=== PATIENT | male | born 1945 | race Caucasian/White ===

== ENCOUNTER 2018-06-19 10:37 | Emergency (ER) | payer MEDICARE ==
--- NOTE | 2018-06-19 11:03 | RAD ---
SINGLE VIEW OF THE CHEST: Comparison: 09-21-12 History: Cough, shortness of breath for two weeks. FINDINGS: Single view of the chest shows a normal sized cardiomediastinal silhouette. There is no evidence of c onsolidation, mass, or pleural effusion. The bones are unremarkable. IMPRESSION: No evidence of acute cardiopulmonary disease. POS: [facility]
[2018-06-19 11:11] LABS: Hemoglobin 14.1 g/dL (14.0-18.0); Mean Corpuscular HGB CONC 32.9 g/dL (32.0-36.0); Mean Corpuscular Hemoglobin 30.7 pg (27.0-31.0); Mean Corpuscular Volume 93.1 fL (78.0-98.0); Mean Platelet Volume 7.2 fL (7.4-10.4); Platelet Count 138 thou/uL (130-400); RBC Distribution Width 12.5 % (11.5-14.5); Red Blood Cell (RBC) Count 4.61 mill/uL (4.70-6.10); White Blood Cell (WBC) Count 17.2 thou/uL (4.8-10.8)
[2018-06-19 11:25] LABS: Band 1 % (5-11); Lymphocytes 70 % (21-51); MDiff Complete? YES; Monocytes 4 % (0-10); Neutrophil 20 % (42-75); PLT Morphology Comment Appears Adequate; Reactive Lymphocytes 5 % (0-10)
[2018-06-19] MEDS ORDERED: methylPREDNISolone Sod Succ/PF 125 MG/2 ML VIAL ONE (11:32)
[2018-06-19 11:48] LABS: CKMB 1.7 ng/mL (0-6.6); Troponin I Less than 0.010 ng/mL (< 0.028)
[2018-06-19 11:49] LABS: ALT (SGPT) 13 U/L (8-55); AST (SGOT) 24 U/L (5-34); Albumin 4.3 g/dL (3.4-4.8); Alkaline Phosphatase 124 U/L (40-150); Anion Gap 15 mmol/L (10-20); BUN (Urea Nitrogen) 23 mg/dL (8.4-25.7); Bilirubin, Total 0.4 mg/dL (0.2-1.2); Calc. Creatinine Clearance 0 mL/min (70-130); Calcium 9.4 mg/dL (7.8-10.44); Carbon Dioxide 21 mmol/L (23-31); Chloride 102 mmol/L (98-107); Estimated GFR-MDRD 66; Globulin 2.4 g/dL (2.4-3.5); Glucose 104 mg/dL (83-110); Potassium 4.7 mmol/L (3.5-5.1); Protein, Total 6.7 g/dL (5.8-8.1); Sodium 133 mmol/L (136-145)
--- NOTE | 2018-06-19 13:06 | CT ---
CT ANGIOGRAM THORAX WITH IV CONTRAST AND 3D RECONSTRUCTIONS: Date: 06-19-18 History: Dyspnea. Cough. Shortness of breath. Comparison: 09-21-12 FINDINGS: No filling defects are seen in the pulmonary arteries to suggest a pulmonary embolus. Vascular calcif ications are seen in the coronary arteries as well as involving the thoracic aorta. There is no evide nce of an aortic dissection or aneurysmal dilatation of the thoracic aorta. The ascending thoracic ao rta measures 4 cm in diameter. There is irregular atherosclerotic plaque and calcifications involving the proximal abdominal aorta. There also appears to be moderate to severe narrowing at the origin of the celiac artery with mild to moderate narrowing at the origin of the superior mesenteric artery. There is a exophytic fluid attenuation cystic lesion inferior pole right kidney measures 3.9 cm, comp atible with a cyst. The spleen is enlarged in AP dimension measuring 15.4 cm. Degenerative changes are noted in the spine. There is what appears to be biapical pleural and parenchymal scarring. Again noted is elevation of th e right hemidiaphragm with atelectasis at the right lung base. No pulmonary nodule, mass, or pleural effusion is identified. Soft tissue density is seen in the subcarinal location just anterior to the esophagus measuring 1.5 c m likely related to mildly enlarged lymph node. There is also mildly enlarged precarinal lymph node w hich measures approximately 1.5 cm in short axis dimension. There is also mild increase in soft tissu e density in the hilar regions bilaterally. Exact etiology for lymphadenopathy is uncertain but may b e reactive in origin. IMPRESSION: 1. No CT evidence of a pulmonary embolus. 2. Atherosclerotic vascular calcifications and plaque in the thoracic and visualized upper abdominal aorta. No aortic dissection or aneurysm is seen. 3. Narrowing of the celiac and superior mesenteric arteries at the origin proximally. 4. Splenomegaly. 5. Right renal cyst. 6. Mild mediastinal and hilar lymphadenopathy, the exact etiology is uncertain but may be reactive in origin. 7. Degenerative changes in the spine with post-surgical changes of the visualized lower lumbar spine. POS: [facility]
[2018-06-19] MEDS ORDERED: Iopamidol 370 76% 100 ML VIAL ONE (15:53)
== END 2018-06-19 14:38 | disposition home or self-care (01) ==
LOC: ERS 10:37
DX: J44.1 Chronic obstructive pulmonary disease with (acute) exacerbation (principal); R59.0 Localized enlarged lymph nodes; I95.9 Hypotension, unspecified; I71.4 Abdominal aortic aneurysm, without rupture; E78.5 Hyperlipidemia, unspecified; Z79.899 Other long term (current) drug therapy
CPT/HCPCS: 71045; 71275; 80053; 82553; 84484; 85025; 93005; 94640; 96374; J2930; J7620

== ENCOUNTER 2018-06-22 08:15 | Inpatient (IN) | payer MEDICARE ==
[2018-06-22 09:00] LABS: Hemoglobin 15.1 g/dL (14.0-18.0); Mean Corpuscular HGB CONC 32.8 g/dL (32.0-36.0); Mean Corpuscular Hemoglobin 30.8 pg (27.0-31.0); Mean Platelet Volume 7.5 fL (7.4-10.4); Platelet Count 198 thou/uL (130-400); RBC Distribution Width 12.8 % (11.5-14.5)
[2018-06-22 09:07] LABS: Anion Gap 14 mmol/L (10-20); BUN (Urea Nitrogen) 22 mg/dL (8.4-25.7); Calc. Creatinine Clearance 0 mL/min (70-130); Calcium 9.5 mg/dL (7.8-10.44); Carbon Dioxide 24 mmol/L (23-31); Chloride 101 mmol/L (98-107); Estimated GFR-MDRD 67; Glucose 78 mg/dL (83-110); Potassium 4.7 mmol/L (3.5-5.1); Sodium 134 mmol/L (136-145)
[2018-06-22 09:14] LABS: CKMB 2.3 ng/mL (0-6.6); Troponin I Less than 0.010 ng/mL (< 0.028)
[2018-06-22 09:17] LABS: Band 2 % (5-11); Lymphocytes 71 % (21-51); MDiff Complete? YES; Monocytes 5 % (0-10); Neutrophil 17 % (42-75); PLT Morphology Comment Appears Adequate; RBC Morphology Normal; Reactive Lymphocytes 5 % (0-10)
--- NOTE | 2018-06-22 09:22 | RAD ---
FRONTAL VIEW CHEST: Comparison: 06-19-18 Indication: Cough. FINDINGS: There is elevation of the right hemidiaphragm. No lobar consolidation, effusion, or pneumot horax. Cardiac silhouette is within normal limits of size for portable technique. IMPRESSION: No focal consolidation. POS: [facility]
[2018-06-22] MEDS ORDERED: methylPREDNISolone Sod Succ/PF 125 MG/2 ML VIAL ONE (09:27)
[2018-06-22] MEDS ORDERED: Magnesium 2 GM/50 ML BAG (IN WATER) ONE (09:27)
[2018-06-22] MEDS ORDERED: Magnesium 2 GM/50 ML 2 GM in Premix Bag 1 BAG IVPB SCH (09:30)
[2018-06-22] MEDS ORDERED: Cefepime 2 GM in Sodium Chloride 0.9% 100 ML IVPB SCH (11:30)
[2018-06-22] MEDS ORDERED: Ondansetron ODT 4 MG TAB PO PRN (12:11)
[2018-06-22] MEDS ORDERED: Eucerin (Mineral Oil/Petrolatum,White) 30 gm Jar TOP PRN (12:11)
[2018-06-22] MEDS ORDERED: Ondansetron PF 4 MG/2 ML Vial IVP PRN (12:11)
[2018-06-22] MEDS ORDERED: Calcium Carbonate 500 MG ChewTAB PO PRN (12:11)
[2018-06-22] MEDS ORDERED: Loperamide HCl 2 MG CAP PO PRN (12:11)
[2018-06-22] MEDS ORDERED: Cepastat Lozenges 1 LOZ PO PRN (12:11)
[2018-06-22] MEDS ORDERED: Bisacodyl 5 MG TAB PO PRN (12:11)
[2018-06-22] MEDS ORDERED: Bisacodyl 10 MG SUPP PR PRN (12:11)
[2018-06-22] MEDS ORDERED: Sodium Chloride 0.65% Nasal 44 ML BOT EA NARE PRN (12:11)
[2018-06-22] MEDS ORDERED: hydrALAZINE 20 MG/ML VIAL SLOW IVP PRN (12:11)
[2018-06-22] MEDS ORDERED: Artificial Tear Sol 15 ML BOT EA EYE PRN (12:11)
[2018-06-22] MEDS ORDERED: Senokot S 8.6-50 MG TAB PO PRN (12:11)
[2018-06-22] MEDS ORDERED: Zolpidem Tartrate 5 MG TAB PO PRN (12:11)
[2018-06-22] MEDS ORDERED: Loratadine 10 MG TAB PO PRN (12:11)
[2018-06-22 12:24] LABS: Troponin I Less than 0.010 ng/mL (< 0.028)
--- NOTE | 2018-06-22 12:51 | HP ---
PRIMARY CARE PHYSICIAN: City call admission. REASON FOR ADMISSION: Acute bronchitis, chronic obstructive pulmonary disease exacerbation, failure of outpatient therapy. HISTORY OF PRESENT ILLNESS: This is a 72-year-old male, who has underlying history of chronic lympho cytic leukemia, who is sick for almost a week. The patient's symptoms started with cough productive of yellowish white sputum, which was gradually increasing. He was also having increasing shortness o f breath. He was having upper respiratory symptoms with a runny nose and mild sore throat. The cecilia ent was trying [id number] medication without any significant improvement, and that is why he re quired emergency room visit on 06/20/2018. At that time, patient was evaluated with a CT angiography , which was negative for pulmonary embolism. The patient was given Solu-Medrol 125 mg and DuoNeb the rapy and patient was discharged to home from the ER with p.o. Levaquin and p.o. prednisone and inhale r was prescribed. Patient was using that medication for the last couple of days, but even with those medications, the patient was feeling worse and he was having pleuritic chest discomfort. He was not able to take deep breath, because of coughing and he was feeling more shortness of breath. His exer cise capacity also reduced and he has still ongoing cough and rhinorrhea. He was not having any feve r, but he was feeling subjective feverish. He denies any UTI symptoms. He denies any constipation o r diarrhea. He denies any sick exposure. He denies any recent travel. Patient reports that he is u p-to-date in flu shot this year and he had, several years ago, pneumonia vaccine. EMERGENCY ROOM COURSE: Reviewed. Today, the patient has received cefepime 2 gram, Levaquin 750 mg, magnesium sulfate 2 grams, Solu-Medrol 125 mg, and DuoNeb therapy. ALLERGIES: MORPHINE and MORPHINE PRODUCT. CURRENT HOME MEDICATIONS: Amitiza 8 mcg twice daily; Celebrex 100 mg twice daily; Levaquin 750 mg p. o. daily, which he took 2 pills so far; ProAir inhaler q.4 hourly p.r.n.; prednisone 40 mg p.o. daily , which he takes for last 2 days. REVIEW OF SYSTEMS: The following complete review of systems was negative, unless otherwise mentioned in the HPI or below: Constitutional: Weight loss or gain, ability to conduct usual activities. Sk in: Rash, itching. Eyes: Double vision, pain. ENT/Mouth: Nose bleeding, neck stiffness, pain, te nderness. Cardiovascular: Palpitations, dyspnea on exertion, orthopnea. Respiratory: Shortness of breath, wheezing, cough, hemoptysis, fever, or night sweats. Gastrointestinal: Poor appetite, abdo shankar pain, heartburn, nausea, vomiting, constipation, or diarrhea. Genitourinary: Urgency, frequen cy, dysuria, nocturia. Musculoskeletal: Pain, swelling. Neurologic/Psychiatric: Anxiety, depressi on. Allergy/Immunologic: Skin rash, bleeding tendency. Please see my HPI for pertinent positive an d negative. All other review of systems reviewed and negative except as mentioned in the HPI. PAST MEDICAL HISTORY: Chronic lymphocytic leukemia under remission, followed by Dr. Holland as an ou tpatient basis, diagnosed almost 8 years ago. Tobacco abuse disorder, history of abdominal aortic an eurysm, dyslipidemia. PAST SURGICAL HISTORY: Back surgery x5 and carotid surgery. PAST PSYCHIATRIC HISTORY: Reviewed and negative. SOCIAL HISTORY: Patient is . He smokes about 5 cigarettes on a daily basis. He is trying to cut down smoking. He denies any alcohol abuse. He denies any other illicit drug abuse. He lives w ith his . FAMILY HISTORY: No strong family history of premature coronary artery disease, stroke, or cancer. PHYSICAL EXAMINATION: VITAL SIGNS: On arrival, blood pressure 124/84, pulse 119, respiratory rate 28, temperature 97.8, sa turation 97% on room air, weight 84.8 kilograms. GENERAL: The patient is currently in mild respiratory distress. HEENT: Head: Normocephalic and atraumatic. Eyes: Pupils round and reactive to light. Extraocular muscle intact. ENT: Oropharynx within normal limits. Moist mucous membranes. No pharyngeal eryth reginald, no exudate. NECK: Supple, no JVD, no thyromegaly, no carotid bruit. LUNGS: Rales noted at the bases, more on the left side. Patient is tachypneic and wheezing present bilaterally. CARDIAC: S1 and S2 regular, tachycardia, no murmur, no gallop, no rub. ABDOMEN: Soft, bowel sounds present, nontender, nondistended. No organomegaly, no mass, no suprapub ic tenderness. BACK EXAMINATION: Unremarkable, no CVA tenderness. EXTREMITIES: Upper extremities, passive movement of all joints are normal. Lower extremities, no ed reginald. Good distal pulsation. SKIN: No skin rash. HEMATOLOGICAL SYSTEM: No lymphadenopathy. PSYCHIATRIC: Normal affect. NEUROLOGIC: Nonfocal examination. SIGNIFICANT LABORATORY DATA: EKG showing sinus tachycardia, first-degree AV block. Chest x-ray, based on my review, no focal consolidation. CT angiography done recently showed no evid ence of pulmonary embolism, narrowing of the celiac and superior mesenteric artery at the origin, spl enomegaly, mild mediastinal and hilar lymphadenopathy, degenerative spine disease, vascular calcifica tion in the aorta. CBC: WBC 36.0, hemoglobin 15.1, platelets 198 with bandemia. BMP: Sodium 134, potassium 4.7, chloride 101, carbon dioxide 24, BUN 22, creatinine 1.09, glucose 78, calcium 9.5, lac tic acid 2.4, CK-MB of 2.3, troponin I less than 0.010. ASSESSMENT AND PLAN: 1. Acute chronic obstructive pulmonary disease exacerbation, likely precipitated by underlying acute bronchitis/atypical pneumonia. 2. Acute bronchitis versus atypical pneumonia, failure of outpatient therapy. 3. Lactic acidosis, due to sepsis, secondary to problem #1 and #2. 4. Sepsis due to problem #1 and #2. 5. Chronic lymphocytic leukemia under remission. 6. Tobacco abuse disorder. 7. Osteoarthritis and chronic constipation. PLAN: 1. Full admission to telemetry floor, given sepsis criteria. 2. Cefepime 2 gram IV twice daily and Levaquin 750 mg IV daily. 3. Solu-Medrol 40 mg IV q.6 hourly. 4. DuoNeb therapy q.6 hourly and q.2 hourly p.r.n. 5. Mucinex 600 mg twice daily. 6. Oxygen to keep saturation above 92% and wean off as needed. 7. Follow up on culture result. 8. Check a viral panel to rule out influenza and other virus etiology. 9. We will resume selected home medication while in hospital. 10. IV fluid with NS 100 mL per hour. 11. Symptomatic treatment for cough and dyspnea. 12. Deep venous thrombosis prophylaxis with Lovenox 40 mg subcutaneous daily. 13. Gastrointestinal prophylaxis with Pepcid 20 mg p.o. b.i.d. 14. Code status: The patient is FULL CODE. The patient's is surrogate decision maker. Disposition plan based on clinical course. We are expecting patient's stay in hospital more than 2 m idnights. Plan of care discussed with the patient and his at bedside.
[2018-06-22 12:57] VITALS: BMI 22.1
[2018-06-22] MEDS: Cefepime 2 GM in Sodium Chloride 0.9% 100 ML IVPB SCH (13:37)
[2018-06-22] MEDS: Sodium Chloride 0.9% 1,000 ML IV SCH ×2 (13:37→20:07)
[2018-06-22] MEDS: Acetaminophen 325 MG TAB PO PRN ×2 (13:46→20:08)
[2018-06-22] MEDS: Diabetic Tussin 200 MG/10 ML UDCUP PO PRN ×2 (13:46→17:12)
[2018-06-22 15:40] LABS: Troponin I Less than 0.010 ng/mL (< 0.028)
[2018-06-22] MEDS ORDERED: CeleCOXIB 100 MG CAP PO SCH (16:15)
[2018-06-22] MEDS: Lubiprostone 24 MCG CAP PO SCH (16:30)
[2018-06-22 17:44] LABS: Bilirubin Negative (Negative); Blood, Urine Negative (Negative); Clarity CLEAR (Clear); Glucose, Urine (Dipstick) Negative (Negative); Leukocyte Negative (Negative); Nitrite Negative (Negative); Protein, Urine (Dipstick) Negative (Neg-Trace); Specific Gravity, Urine 1.015 (1.002-1.036); Urobilinogen 0.2 mg/dL (0.2-1.0)
[2018-06-22 17:46] LABS: Bacteria/HPF None Seen HPF (None Seen); Hyaline Casts/LPF 0-3 HYALINE CAST LPF (0-3 Hyaline); RBC/HPF 0-3 HPF (0-3); Squamous Epithelial None Seen HPF (0-3); WBC/HPF None Seen HPF (0-3)
[2018-06-22] MEDS: CeleCOXIB 100 MG CAP PO SCH (20:07)
[2018-06-22] MEDS: Famotidine 20 MG TAB PO SCH (20:08)
[2018-06-22] MEDS: guaiFENesin ER 600 MG TAB PO SCH (20:08)
[2018-06-23] MEDS: Cefepime 2 GM in Sodium Chloride 0.9% 100 ML IVPB SCH ×2 (00:44→14:57)
[2018-06-23 04:57] LABS: Anion Gap 10 mmol/L (10-20); BUN (Urea Nitrogen) 23 mg/dL (8.4-25.7); Calc. Creatinine Clearance 84 mL/min (70-130); Calcium 8.6 mg/dL (7.8-10.44); Carbon Dioxide 23 mmol/L (23-31); Chloride 106 mmol/L (98-107); Estimated GFR-MDRD 81; Glucose 143 mg/dL (83-110); Potassium 4.6 mmol/L (3.5-5.1); Sodium 134 mmol/L (136-145)
[2018-06-23 05:05] LABS: Band 2 % (5-11); Hemoglobin 12.8 g/dL (14.0-18.0); Lymphocytes 34 % (21-51); MDiff Complete? YES; Mean Corpuscular Hemoglobin 31.1 pg (27.0-31.0); Mean Corpuscular Volume 94.1 fL (78.0-98.0); Mean Platelet Volume 7.2 fL (7.4-10.4); Monocytes 9 % (0-10); Neutrophil 37 % (42-75); PLT Morphology Comment Appears Decreased; Platelet Count 112 thou/uL (130-400); RBC Distribution Width 12.1 % (11.5-14.5); Reactive Lymphocytes 18 % (0-10); Red Blood Cell (RBC) Count 4.13 mill/uL (4.70-6.10); White Blood Cell (WBC) Count 12.1 thou/uL (4.8-10.8)
[2018-06-23] MEDS: Diabetic Tussin 200 MG/10 ML UDCUP PO PRN (06:02)
[2018-06-23] MEDS: Sodium Chloride 0.9% 1,000 ML IV SCH (08:09)
[2018-06-23] MEDS ORDERED: Prevnar 13-Val Conj/PF 0.5 ML SYRINGE IM ONE (09:00)
--- NOTE | 2018-06-23 09:19 | PDOC.PN ---
- Subjective Encounter Start Date: 06/23/18 Encounter Start Time: 07:10 -: old records requested/rev pt still has cough when he deep breaths, overall feels better, less dyspnea Patient seen and examined. No overnight events - Objective Resuscitation Status: Resuscitation Status FULL:Full Resuscitation MAR Reviewed: Yes Vital Signs & Weight: Vital Signs (12 hours) Temp Pulse Resp BP BP Pulse Ox 06/23/18 07:38 97.8 F 68 16 133/73 92 L 06/23/18 06:11 95 06/23/18 06:06 65 20 95 06/23/18 03:28 98.5 F 63 20 128/68 94 L 06/23/18 02:12 70 18 94 L 06/22/18 23:21 97.8 F 62 20 131/67 93 L Weight Weight 177 lb I&O: 06/22/18 06/23/18 06/24/18 06:59 06:59 06:59 Intake Total 2790 Output Total 1750 Balance 1040 Result Diagrams: 06/23/18 04:10 06/23/18 04:10 EKG Reviewed by me: Yes (nsr) Phys Exam - Physical Examination Constitutional: NAD HEENT: PERRLA, moist MMs, sclera anicteric Neck: no JVD, supple few wheeze, basilar rales Cardiovascular: RRR, no significant murmur, no rub Gastrointestinal: soft, non-tender, no distention, positive bowel sounds Musculoskeletal: no edema, pulses present Neurological: non-focal, normal sensation, moves all 4 limbs Psychiatric: normal affect, A&O x 3 Skin: no rash, normal turgor Dx/Plan (1) Acute bronchitis Code(s): J20.9 - ACUTE BRONCHITIS, UNSPECIFIED Status: Acute (2) COPD exacerbation Code(s): J44.1 - CHRONIC OBSTRUCTIVE PULMONARY DISEASE W (ACUTE) EXACERBATION Status: Acute (3) Failure of outpatient treatment Code(s): Z78.9 - OTHER SPECIFIED HEALTH STATUS Status: Acute (4) Sepsis Code(s): A41.9 - SEPSIS, UNSPECIFIED ORGANISM Status: Acute (5) Thrombocytopenia Code(s): D69.6 - THROMBOCYTOPENIA, UNSPECIFIED Status: Acute (6) Chronic lymphoblastic leukemia Code(s): C91.Z0 - OTHER LYMPHOID LEUKEMIA NOT HAVING ACHIEVED REMISSION Status : Chronic (7) Tobacco abuse Code(s): Z72.0 - TOBACCO USE Status: Chronic - Plan cont current plan of care, continue antibiotics, respiratory therapy * DC IVF * ambulate with walking program * continue IV cefepime and levaquin for now * continue IV solumderol and respiratory therapy * medication reviewed as below * symptomatic treatment. Review of Systems - Review of Systems Constitutional: negative: fever, chills, sweats, weakness, malaise, other Respiratory: Cough, Pleuritic Pain. negative: Dry, Shortness of Breath, Hemoptysis, SOB with Excertion, Sputum, Wheezing Cardiovascular: negative: chest pain, palpitations, orthopnea, paroxysmal nocturnal dyspnea, edema, light headedness, other Gastrointestinal: negative: Nausea, Vomiting, Abdominal Pain, Diarrhea, Constipation, Melena, Hematochezia, Other Genitourinary: negative: Dysuria, Frequency, Incontinence, Hematuria, Retention , Other Musculoskeletal: negative: Neck Pain, Shoulder Pain, Arm Pain, Back Pain, Hand Pain, Leg Pain, Foot Pain, Other Skin: negative: Rash, Lesions, Vladimir, Bruising, Other - Medications/Allergies Allergies/Adverse Reactions: Allergies Allergy/AdvReac Type Severity Reaction Status Date / Time morphine Allergy Verified 06/22/18 13:14 Medications: Current Medications Acetaminophen (Tylenol) 650 mg PO Q4H PRN PRN Reason: Headache/Fever/Mild Pain (1-3) Last Admin: 06/22/18 20:08 Dose: 650 mg Albuterol/Ipratropium (Duoneb) 3 ml NEB [id number] [facility] Last Admin: 06/23/18 06:06 Dose: 3 ml Albuterol/Ipratropium (Duoneb) 3 ml NEB [id number] PRN PRN Reason: SOB &/or Wheezing Artificial Tears (Tears Renewed 15ml Bottle) 2 drop EA EYE PRN PRN PRN Reason: Dry Eyes Bisacodyl (Dulcolax) 10 mg PO DAILYPRN PRN PRN Reason: Constipation Bisacodyl (Dulcolax) 10 mg MI DAILYPRN PRN PRN Reason: Constipation Calcium Carbonate (Tums) 1,000 mg PO Q4H PRN PRN Reason: Heartburn or Indigestion Celecoxib (Celebrex) 200 mg PO BID [facility] Last Admin: 11/09/18 20:07 Dose: 200 mg Enoxaparin Sodium (Lovenox) 40 mg SC 0900 [facility] Famotidine (Pepcid) 20 mg PO BID [facility] Last Admin: 06/22/18 20:08 Dose: 20 mg Guaifenesin (Mucinex) 600 mg PO Q12HR [facility] Last Admin: 06/22/18 20:08 Dose: 600 mg Guaifenesin (Robitussin Sf) 200 mg PO Q4H PRN PRN Reason: Cough Last Admin: 06/23/18 06:02 Dose: 200 mg Hydralazine HCl (Apresoline) 10 mg SLOW IVP Q4H PRN PRN Reason: SBP > 180 and HR < 70 Sodium Chloride (Normal Saline 0.9%) 1,000 mls @ 100 mls/hr IV .Q10H [facility] Last Admin: 06/23/18 08:09 Dose: 1,000 mls Cefepime HCl 2 gm/ Sodium (Chloride) 100 mls @ 200 mls/hr IVPB 0100,1300 [facility] Last Admin: 06/23/18 00:44 Dose: 100 mls Levofloxacin 750 mg/ Device 150 mls @ 100 mls/hr IVPB Q24HR@1000 [facility] Loperamide HCl (Imodium) 2 mg PO PRN PRN PRN Reason: Diarrhea/Loose Stools Loratadine (Claritin) 10 mg PO DAILYPRN PRN PRN Reason: Sinus Symptoms Lubiprostone (Amitiza) 24 mcg PO BID-[facility] Last Admin: 06/22/18 16:30 Dose: 24 mcg Methylprednisolone Sodium Succinate (Solu-Medrol) 40 mg IVP Q6HR [facility] Last Admin: 06/23/18 05:55 Dose: 40 mg Mineral Oil/White Petrolatum (Eucerin Cream) 0 gm TOP BIDPRN PRN PRN Reason: Dry Skin Ondansetron HCl (Zofran Odt) 4 mg PO Q6H PRN PRN Reason: Nausea/Vomiting Ondansetron HCl (Zofran) 4 mg IVP Q6H PRN PRN Reason: Nausea/Vomiting Senna/Docusate Sodium (Senokot S) 2 tab PO BID PRN PRN Reason: Constipation Sodium Chloride ([place] Nasal [place] 0.65%) 0 ml EA NARE QIDPRN PRN PRN Reason: Nasal Congestion Throat Lozenges (Cepastat Lozenges) 1 ludmila PO Q2H PRN PRN Reason: Sore Throat Zolpidem Tartrate (Ambien) 5 mg PO HSPRN PRN PRN Reason: Insomnia
[2018-06-23] MEDS: CeleCOXIB 100 MG CAP PO SCH ×2 (10:02→20:33)
[2018-06-23] MEDS: Enoxaparin Sodium 40 MG/0.4 ML SYRINGE SC SCH (10:02)
[2018-06-23] MEDS: guaiFENesin ER 600 MG TAB PO SCH ×2 (10:03→20:33)
[2018-06-23] MEDS: Famotidine 20 MG TAB PO SCH ×2 (10:03→20:33)
[2018-06-23] MEDS: Lubiprostone 24 MCG CAP PO SCH ×2 (10:03→18:18)
[2018-06-23] MEDS: Acetaminophen 325 MG TAB PO PRN ×2 (12:25→20:33)
[2018-06-24] MEDS: Cefepime 2 GM in Sodium Chloride 0.9% 100 ML IVPB SCH ×2 (01:15→13:25)
[2018-06-24] MEDS: Acetaminophen 325 MG TAB PO PRN ×2 (01:24→20:35)
[2018-06-24] MEDS: Diabetic Tussin 200 MG/10 ML UDCUP PO PRN (01:24)
[2018-06-24] MEDS: Lubiprostone 24 MCG CAP PO SCH ×2 (08:56→17:34)
[2018-06-24] MEDS: Famotidine 20 MG TAB PO SCH ×2 (08:57→20:35)
[2018-06-24] MEDS: CeleCOXIB 100 MG CAP PO SCH ×2 (08:57→20:34)
[2018-06-24] MEDS: guaiFENesin ER 600 MG TAB PO SCH ×2 (08:58→20:34)
[2018-06-24] MEDS: Enoxaparin Sodium 40 MG/0.4 ML SYRINGE SC SCH (08:58)
--- NOTE | 2018-06-24 10:06 | PDOC.PN ---
- Subjective Encounter Start Date: 06/24/18 Encounter Start Time: 07:10 Patient seen and examined. No new complaints. No overnight events - Objective Resuscitation Status: Resuscitation Status FULL:Full Resuscitation MAR Reviewed: Yes Vital Signs & Weight: Vital Signs (12 hours) Temp Pulse Resp BP Pulse Ox 06/24/18 08:00 99.1 F 69 16 127/69 91 L 06/24/18 06:52 79 16 96 06/24/18 04:00 99.1 F 74 18 122/74 94 L 06/24/18 00:00 97.8 F 70 18 106/68 96 06/23/18 23:11 83 16 95 Weight Admit Weight 177 lb Weight 177 lb I&O: 06/23/18 06/24/18 06/25/18 06:59 06:59 06:59 Intake Total 2790 2002 480 Output Total 1750 Balance 1040 2002 480 Result Diagrams: 06/23/18 04:10 06/23/18 04:10 EKG Reviewed by me: Yes Phys Exam - Physical Examination Constitutional: NAD HEENT: PERRLA, moist MMs, sclera anicteric Neck: no JVD, supple Respiratory: no wheezing, no rales, no rhonchi few rales at base Cardiovascular: RRR, no significant murmur, no rub Gastrointestinal: soft, non-tender, no distention, positive bowel sounds Musculoskeletal: no edema, pulses present Neurological: non-focal, normal sensation, moves all 4 limbs Lymphatic: no nodes Psychiatric: normal affect, A&O x 3 Skin: no rash, normal turgor Dx/Plan (1) Acute bronchitis Code(s): J20.9 - ACUTE BRONCHITIS, UNSPECIFIED Status: Acute (2) COPD exacerbation Code(s): J44.1 - CHRONIC OBSTRUCTIVE PULMONARY DISEASE W (ACUTE) EXACERBATION Status: Acute (3) Failure of outpatient treatment Code(s): Z78.9 - OTHER SPECIFIED HEALTH STATUS Status: Acute (4) Sepsis Code(s): A41.9 - SEPSIS, UNSPECIFIED ORGANISM Status: Acute (5) Thrombocytopenia Code(s): D69.6 - THROMBOCYTOPENIA, UNSPECIFIED Status: Acute (6) Chronic lymphoblastic leukemia Code(s): C91.Z0 - OTHER LYMPHOID LEUKEMIA NOT HAVING ACHIEVED REMISSION Status : Chronic (7) Tobacco abuse Code(s): Z72.0 - TOBACCO USE Status: Chronic - Plan cont current plan of care, continue antibiotics, respiratory therapy * reduce solumedrol to q 8 hourly * continue cefepime and levaquin * medication reviewed as below * symptomatic treatment * ambulate as tolerated. Review of Systems - Review of Systems Constitutional: negative: fever, chills, sweats, weakness, malaise, other ENT: negative: Ear Pain, Ear Discharge, Nose Pain, Nose Discharge, Nose Congestion, Mouth Pain, Mouth Swelling, Throat Pain, Throat Swelling, Other Respiratory: Cough, Shortness of Breath, Pleuritic Pain, Sputum. negative: Dry , Hemoptysis, SOB with Excertion, Wheezing Cardiovascular: negative: chest pain, palpitations, orthopnea, paroxysmal nocturnal dyspnea, edema, light headedness, other Gastrointestinal: negative: Nausea, Vomiting, Abdominal Pain, Diarrhea, Constipation, Melena, Hematochezia, Other Genitourinary: negative: Dysuria, Frequency, Incontinence, Hematuria, Retention , Other Musculoskeletal: negative: Neck Pain, Shoulder Pain, Arm Pain, Back Pain, Hand Pain, Leg Pain, Foot Pain, Other Skin: negative: Rash, Lesions, Vladimir, Bruising, Other - Medications/Allergies Allergies/Adverse Reactions: Allergies Allergy/AdvReac Type Severity Reaction Status Date / Time morphine Allergy Verified 06/22/18 13:14 Medications: Current Medications Acetaminophen (Tylenol) 650 mg PO Q4H PRN PRN Reason: Headache/Fever/Mild Pain (1-3) Last Admin: 06/24/18 01:24 Dose: 650 mg Albuterol/Ipratropium (Duoneb) 3 ml NEB [id number] [facility] Last Admin: 06/24/18 06:52 Dose: 3 ml Albuterol/Ipratropium (Duoneb) 3 ml NEB [id number] PRN PRN Reason: SOB &/or Wheezing Artificial Tears (Tears Renewed 15ml Bottle) 2 drop EA EYE PRN PRN PRN Reason: Dry Eyes Bisacodyl (Dulcolax) 10 mg PO DAILYPRN PRN PRN Reason: Constipation Bisacodyl (Dulcolax) 10 mg MI DAILYPRN PRN PRN Reason: Constipation Calcium Carbonate (Tums) 1,000 mg PO Q4H PRN PRN Reason: Heartburn or Indigestion Celecoxib (Celebrex) 200 mg PO BID [facility] Last Admin: 06/24/18 08:57 Dose: 200 mg Enoxaparin Sodium (Lovenox) 40 mg SC 0900 [facility] Last Admin: 06/24/18 08:58 Dose: 40 mg Famotidine (Pepcid) 20 mg PO BID [facility] Last Admin: 06/24/18 08:57 Dose: 20 mg Guaifenesin (Mucinex) 600 mg PO Q12HR [facility] Last Admin: 06/24/18 08:58 Dose: 600 mg Guaifenesin (Robitussin Sf) 200 mg PO Q4H PRN PRN Reason: Cough Last Admin: 06/24/18 01:24 Dose: 200 mg Hydralazine HCl (Apresoline) 10 mg SLOW IVP Q4H PRN PRN Reason: SBP > 180 and HR < 70 Cefepime HCl 2 gm/ Sodium (Chloride) 100 mls @ 200 mls/hr IVPB 0100,1300 [facility] Last Admin: 06/24/18 01:15 Dose: 100 mls Levofloxacin 750 mg/ Device 150 mls @ 100 mls/hr IVPB Q24HR@1000 [facility] Last Admin: 06/24/18 09:01 Dose: 150 mls Loperamide HCl (Imodium) 2 mg PO PRN PRN PRN Reason: Diarrhea/Loose Stools Loratadine (Claritin) 10 mg PO DAILYPRN PRN PRN Reason: Sinus Symptoms Lubiprostone (Amitiza) 24 mcg PO BID-[facility] Last Admin: 06/24/18 08:56 Dose: 24 mcg Methylprednisolone Sodium Succinate (Solu-Medrol) 40 mg IVP Q6HR [facility] Last Admin: 06/24/18 05:59 Dose: 40 mg Mineral Oil/White Petrolatum (Eucerin Cream) 0 gm TOP BIDPRN PRN PRN Reason: Dry Skin Ondansetron HCl (Zofran Odt) 4 mg PO Q6H PRN PRN Reason: Nausea/Vomiting Ondansetron HCl (Zofran) 4 mg IVP Q6H PRN PRN Reason: Nausea/Vomiting Senna/Docusate Sodium (Senokot S) 2 tab PO BID PRN PRN Reason: Constipation Sodium Chloride ([place] Nasal [place] 0.65%) 0 ml EA NARE QIDPRN PRN PRN Reason: Nasal Congestion Throat Lozenges (Cepastat Lozenges) 1 ludmila PO Q2H PRN PRN Reason: Sore Throat Zolpidem Tartrate (Ambien) 5 mg PO HSPRN PRN PRN Reason: Insomnia
[2018-06-25] MEDS: Cefepime 2 GM in Sodium Chloride 0.9% 100 ML IVPB SCH (01:45)
[2018-06-25] MEDS: Diabetic Tussin 200 MG/10 ML UDCUP PO PRN (02:43)
[2018-06-25 07:48] VITALS: BP 126/70; TEMP 97.6
[2018-06-25] MEDS: Famotidine 20 MG TAB PO SCH (08:29)
[2018-06-25] MEDS: Lubiprostone 24 MCG CAP PO SCH (08:29)
[2018-06-25] MEDS: Enoxaparin Sodium 40 MG/0.4 ML SYRINGE SC SCH (08:30)
[2018-06-25] MEDS: CeleCOXIB 100 MG CAP PO SCH (08:30)
[2018-06-25] MEDS: guaiFENesin ER 600 MG TAB PO SCH (08:30)
--- NOTE | 2018-06-25 09:36 | PDOC.PN ---
- Subjective Encounter Start Date: 06/25/18 Encounter Start Time: 07:10 Patient seen and examined. No new complaints. No overnight events - Objective Resuscitation Status: Resuscitation Status FULL:Full Resuscitation MAR Reviewed: Yes Vital Signs & Weight: Vital Signs (12 hours) Temp Pulse Resp BP BP BP BP 06/25/18 07:45 97.6 F 61 16 126/70 06/25/18 07:01 68 16 06/25/18 04:02 98.0 F 95 18 125/79 122/83 120/69 06/25/18 00:14 72 18 06/24/18 23:31 98.8 F 65 14 121/75 Pulse Ox 06/25/18 07:45 97 06/25/18 07:01 93 L 06/25/18 04:02 95 06/25/18 00:14 93 L 06/24/18 23:31 94 L Weight Admit Weight 177 lb Weight 177 lb I&O: 06/24/18 06/25/18 06/26/18 06:59 06:59 06:59 Intake Total 2002 2340 480 Balance 2002 2340 480 Result Diagrams: 06/23/18 04:10 06/23/18 04:10 EKG Reviewed by me: Yes Phys Exam - Physical Examination Constitutional: NAD HEENT: PERRLA, moist MMs, sclera anicteric Neck: no JVD, supple Respiratory: no wheezing, no rales, no rhonchi Cardiovascular: RRR, no significant murmur, no rub Gastrointestinal: soft, non-tender, no distention, positive bowel sounds Musculoskeletal: no edema, pulses present Neurological: non-focal, normal sensation, moves all 4 limbs Psychiatric: normal affect, A&O x 3 Skin: no rash, normal turgor Dx/Plan (1) Acute bronchitis Code(s): J20.9 - ACUTE BRONCHITIS, UNSPECIFIED Status: Acute (2) COPD exacerbation Code(s): J44.1 - CHRONIC OBSTRUCTIVE PULMONARY DISEASE W (ACUTE) EXACERBATION Status: Acute (3) Failure of outpatient treatment Code(s): Z78.9 - OTHER SPECIFIED HEALTH STATUS Status: Acute (4) Sepsis Code(s): A41.9 - SEPSIS, UNSPECIFIED ORGANISM Status: Acute (5) Thrombocytopenia Code(s): D69.6 - THROMBOCYTOPENIA, UNSPECIFIED Status: Acute (6) Chronic lymphoblastic leukemia Code(s): C91.Z0 - OTHER LYMPHOID LEUKEMIA NOT HAVING ACHIEVED REMISSION Status : Chronic (7) Tobacco abuse Code(s): Z72.0 - TOBACCO USE Status: Chronic - Plan cont current plan of care, continue antibiotics, respiratory therapy * medication reviewed as below * symptomatic treatment * see my discharge carsony. Review of Systems - Review of Systems ENT: negative: Ear Pain, Ear Discharge, Nose Pain, Nose Discharge, Nose Congestion, Mouth Pain, Mouth Swelling, Throat Pain, Throat Swelling, Other Respiratory: Cough. negative: Dry, Shortness of Breath, Hemoptysis, SOB with Excertion, Pleuritic Pain, Sputum, Wheezing Cardiovascular: negative: chest pain, palpitations, orthopnea, paroxysmal nocturnal dyspnea, edema, light headedness, other Gastrointestinal: negative: Nausea, Vomiting, Abdominal Pain, Diarrhea, Constipation, Melena, Hematochezia, Other Genitourinary: negative: Dysuria, Frequency, Incontinence, Hematuria, Retention , Other Musculoskeletal: negative: Neck Pain, Shoulder Pain, Arm Pain, Back Pain, Hand Pain, Leg Pain, Foot Pain, Other Skin: negative: Rash, Lesions, Vladimir, Bruising, Other - Medications/Allergies Allergies/Adverse Reactions: Allergies Allergy/AdvReac Type Severity Reaction Status Date / Time morphine Allergy Verified 06/22/18 13:14 Medications: Current Medications Acetaminophen (Tylenol) 650 mg PO Q4H PRN PRN Reason: Headache/Fever/Mild Pain (1-3) Last Admin: 06/24/18 20:35 Dose: 650 mg Albuterol/Ipratropium (Duoneb) 3 ml NEB [id number] [facility] Last Admin: 06/25/18 07:01 Dose: 3 ml Albuterol/Ipratropium (Duoneb) 3 ml NEB [id number] PRN PRN Reason: SOB &/or Wheezing Artificial Tears (Tears Renewed 15ml Bottle) 2 drop EA EYE PRN PRN PRN Reason: Dry Eyes Bisacodyl (Dulcolax) 10 mg PO DAILYPRN PRN PRN Reason: Constipation Bisacodyl (Dulcolax) 10 mg NE DAILYPRN PRN PRN Reason: Constipation Calcium Carbonate (Tums) 1,000 mg PO Q4H PRN PRN Reason: Heartburn or Indigestion Celecoxib (Celebrex) 200 mg PO BID [facility] Last Admin: 06/25/18 08:30 Dose: 200 mg Enoxaparin Sodium (Lovenox) 40 mg SC 0900 [facility] Last Admin: 06/25/18 08:30 Dose: 40 mg Famotidine (Pepcid) 20 mg PO BID [facility] Last Admin: 06/25/18 08:29 Dose: 20 mg Guaifenesin (Mucinex) 600 mg PO Q12HR [facility] Last Admin: 06/25/18 08:30 Dose: 600 mg Guaifenesin (Robitussin Sf) 200 mg PO Q4H PRN PRN Reason: Cough Last Admin: 06/25/18 02:43 Dose: 200 mg Hydralazine HCl (Apresoline) 10 mg SLOW IVP Q4H PRN PRN Reason: SBP > 180 and HR < 70 Cefepime HCl 2 gm/ Sodium (Chloride) 100 mls @ 200 mls/hr IVPB 0100,1300 [facility] Last Admin: 06/25/18 01:45 Dose: 100 mls Levofloxacin 750 mg/ Device 150 mls @ 100 mls/hr IVPB Q24HR@1000 [facility] Last Admin: 06/24/18 09:01 Dose: 150 mls Loperamide HCl (Imodium) 2 mg PO PRN PRN PRN Reason: Diarrhea/Loose Stools Loratadine (Claritin) 10 mg PO DAILYPRN PRN PRN Reason: Sinus Symptoms Lubiprostone (Amitiza) 24 mcg PO BID[facility] Last Admin: 06/25/18 08:29 Dose: 24 mcg Methylprednisolone Sodium Succinate (Solu-Medrol) 40 mg IVP Q8HR [facility] Last Admin: 06/25/18 05:53 Dose: 40 mg Mineral Oil/White Petrolatum (Eucerin Cream) 0 gm TOP BIDPRN PRN PRN Reason: Dry Skin Ondansetron HCl (Zofran Odt) 4 mg PO Q6H PRN PRN Reason: Nausea/Vomiting Ondansetron HCl (Zofran) 4 mg IVP Q6H PRN PRN Reason: Nausea/Vomiting Senna/Docusate Sodium (Senokot S) 2 tab PO BID PRN PRN Reason: Constipation Sodium Chloride ([place] Nasal Michie 0.65%) 0 ml EA NARE QIDPRN PRN PRN Reason: Nasal Congestion Throat Lozenges (Cepastat Lozenges) 1 ludmila PO Q2H PRN PRN Reason: Sore Throat Zolpidem Tartrate (Ambien) 5 mg PO HSPRN PRN PRN Reason: Insomnia
--- NOTE | 2018-06-25 11:08 | DIS ---
DATE OF ADMISSION: 06/22/2018 DATE OF DISCHARGE: 06/25/2018 DISCHARGE DISPOSITION: Home. PRIMARY DISCHARGE DIAGNOSES: 1. Sepsis, resolved. 2. Acute bronchitis/atypical pneumonia due to Streptococcus pneumoniae. 3. Failure of outpatient therapy. 4. Thrombocytopenia due to sepsis. 5. Chronic obstructive pulmonary disease exacerbation. SECONDARY DISCHARGE DIAGNOSES: Chronic lymphocytic leukemia, chronic obstructive pulmonary disease, tobacco abuse disorder. PRIMARY PROCEDURE AND OPERATION: None. RADIOLOGICAL INVESTIGATION: Chest x-ray reported normal. SIGNIFICANT LABORATORY DATA: WBC 12.1, hemoglobin 12.8, platelet 112. Sodium 134, potassium 4.6, BU N 23, creatinine 0.92, calcium 8.6. Cardiac enzymes negative x3. Lactic acid 1.0. Urinalysis papo l. Blood culture negative. DISCHARGE MEDICATIONS: Celecoxib 200 mg p.o. b.i.d. p.r.n., Amitiza 24 mcg p.o. b.i.d. p.r.n., ProAi r HFA 2 puffs q.6 hourly p.r.n., Omnicef 300 mg p.o. twice daily for 7 days, Mucinex 600 mg twice jourdan ly, Pepcid 20 mg p.o. b.i.d., Dulera two puff inhalation b.i.d., prednisone 20 mg p.o. b.i.d. for 7 d ays. CONTRAINDICATIONS: None. CODE STATUS: FULL CODE. INPATIENT CONSULTANTS: None. ALLERGIES: MORPHINE. TEST RESULTS PENDING ON DISCHARGE: None. DISCHARGE PLAN: Post hospital, the patient is instructed to follow up with primary care physician in 1 week. HOSPITAL COURSE: The patient is a 72-year-old male who was experiencing upper and lower respiratory symptoms for last 1 or 2 week. He went to see emergency room, at that time he had chest x-ray and CT angiography for elevated D-dimer and that was negative for PE. Both x-ray and CT angio did not show any infiltration and he was given levofloxacin and prednisone from emergency room. He took a couple of days medication, but he did not improve and that is why he came back to the emergency room and we admitted him for worsening respiratory symptoms. At this time, chest x-ray also did not show any pn eumonia, but we are suspecting based on clinical examination, he had early pneumonia versus bronchiti s versus atypical pneumonia which we suspected due to Streptococcal pneumonia. He was meeting sepsis criteria on admission, he was admitted to telemetry floor. We treated him with cefepime and Levaqui n while in hospital. The patient had clinical improvement. His COPD was also treated with IV steroi d, Mucinex and respiratory therapy. Upon discharge, we changed to Omnicef and prednisone, Mucinex wa s advised. Rest of medication he will continue as per previous. We also prescribed inhaler with alb uterol and Dulera. Patient is doing very well. He is on room air, ambulatory, tolerating p.o. well. All new medication prescriptions sent to his pharmacy. The patient is seen and examined at bedside today. Please see my progress note from today for further detail.
--- NOTE | 2018-06-27 12:50 | PQF ---
TORI GRAVES SALIM NOORJIBHAI MD [id number] [facility] [id number] CLINICAL DOCUMENTATION CLARIFICATION FORM: POST DISCHARGE Addendum to original discharge summary date: ____ Late entry note date: __ DATE: 06/27/18 ATTN: Please exercise your independent, professional judgment in responding to the clarification form. Clinical indicators are provided on the bottom of this form for your review Please check appropriate box(s): [ ] Aspiration Pneumonia [ ] Aspiration Bronchitis [ x ] Empirically treating Gram Negative Pneumonia [ ] Empirically treating Anaerobic Pneumonia [ ] Pneumonia secondary to (specify organism / underlying disease) [ ] Simple Pneumonia (community acquired - nosocomial) [ ] Bronchopneumonia [ ] Pneumonia of unknown etiology [ ] Other diagnosis [ ] Unable to determine In addition, please specify: Present on Admission (POA): [ x ] Yes [ ] No [ ] Unable to determine For continuity of documentation, please document condition throughout progress notes and discharge summary. Thank You. CLINICAL INDICATORS - SIGNS / SYMPTOMS / LABS Elevated WBC SOB RISK FACTORS Sepsis Bronchitis TREATMENTS: IV Antibiotics Serial CXRs (This form is maintained as a part of the permanent medical record) 2014 [employer]. All Rights Reserved [email or web address] [email or web address] [phone] [email or web address]
--- NOTE | 2018-06-29 15:31 | EKG ---
Test Reason : SOB Blood Pressure : / mmHG Vent. Rate : 100 BPM Atrial Rate : 100 BPM P-R Int : 242 ms QRS Dur : 096 ms QT Int : 318 ms P-R-T Axes : 075 075 035 degrees QTc Int : 410 ms Sinus rhythm with 1st degree A-V block Possible Left atrial enlargement Septal infarct , age undetermined Abnormal ECG Baseline Artifact Present Confirmed by ROSY RASMUSSEN, LUKE Nagel ([id number]), photograph editor EVERARDO RUFFIN ([id number]) on 06/29/2018 3:31:06 PM Referred By: MARIANNE GALLEGOS Confirmed By:LUKE GALLEGOS MD
== END 2018-06-25 11:42 | disposition home or self-care (01) | DRG 871 ==
LOC: ERS 08:15 → 2SE 11:42
PROVIDERS: ADMIT Internal Medicine; ATTEND Internal Medicine
DX: A40.9 Streptococcal sepsis, unspecified (principal); J15.20 Pneumonia due to staphylococcus, unspecified; J44.1 Chronic obstructive pulmonary disease with (acute) exacerbation; C91.11 Chronic lymphocytic leukemia of B-cell type in remission; E87.2 Acidosis; J20.9 Acute bronchitis, unspecified; D69.6 Thrombocytopenia, unspecified; Z88.5 Allergy status to narcotic agent; Z79.899 Other long term (current) drug therapy; Z79.2 Long term (current) use of antibiotics; Z79.52 Long term (current) use of systemic steroids; M19.90 Unspecified osteoarthritis, unspecified site; K59.09 Other constipation
CPT/HCPCS: 36415; 71045; 71275; 80048; 80053; 81001; 82553; 83605; 84484; 85025; 87040; 90471; 90670; 93005; 94640; 96365; 96367; 96374; 96375; G0009; J0692; J1650; J1956; J2920; J2930; J7050; J7620

== ENCOUNTER 2019-02-14 08:45 | Emergency (ER) | payer MEDICARE ==
[2019-02-14] MEDS ORDERED: Ketorolac Tromethamine 30 MG/ML VIAL ONE (09:12)
--- NOTE | 2019-02-14 09:17 | RAD ---
Radiograph right wrist 3 views: HISTORY: 73-year-old male with right wrist pain FINDINGS: No fracture is identified. If there is snuffbox tenderness following trauma that suggests an occult s caphoid fracture, then the general recommendations immobilization and follow-up imaging in 5-10 days. Alignment is normal. No high-grade DJD. The ulnar styloid process is truncated, probably chroni c. IMPRESSION: Negative
[2019-02-14] MEDS ORDERED: traMADol HCl 50 MG TAB ONE (09:55)
== END 2019-02-14 10:08 | disposition home or self-care (01) ==
LOC: ERS 08:45
DX: G56.01 Carpal tunnel syndrome, right upper limb (principal)
CPT/HCPCS: 96372; J1885

== ENCOUNTER 2019-03-12 06:53 | Day surgery (SDC) | payer MEDICARE ==
[2019-03-11 10:31] VITALS: BMI 23.7
[2019-03-12 07:39] LABS: Hemoglobin 13.5 g/dL (14.0-18.0); Mean Corpuscular Volume 91.3 fL (78.0-98.0); Platelet Count 107 thou/uL (130-400); RBC Distribution Width 12.6 % (11.5-14.5); Red Blood Cell (RBC) Count 4.36 mill/uL (4.70-6.10); White Blood Cell (WBC) Count 10.7 thou/uL (4.8-10.8)
[2019-03-12 07:46] LABS: INR-International Normal Ratio 1.1; PTT 28.5 SEC (22.9-36.1); Prothrombin Time 14.3 SEC (12.0-14.7)
[2019-03-12] MEDS ORDERED: Fentanyl 100 MCG/2 ML VIAL ONE ×2 (07:53→08:52)
[2019-03-12 08:38] LABS: Lymphocytes 59 % (21-51); MDiff Complete? YES; Monocytes 1 % (0-10); Neutrophil 28 % (42-75); Platelet Morphology Comment Appears Decreased; RBC Morphology Normal; Reactive Lymphocytes 12 % (0-10)
[2019-03-12] MEDS ORDERED: Lidocaine 1% w/Epinephrine 1:100K 20 ML VIAL ONE (08:40)
[2019-03-12] MEDS ORDERED: ceFAZolin Sodium (SDC) 2 GM/100 ML BAG ONE (08:47)
[2019-03-12] MEDS ORDERED: HYDROcodone/Acetaminophen 5/325 mg Tablet ONE (11:24)
--- NOTE | 2019-03-12 11:58 | OP ---
DATE OF PROCEDURE: 03/12/2019 PREOPERATIVE DIAGNOSIS: Right carpal tunnel syndrome. POSTOPERATIVE DIAGNOSIS: Right carpal tunnel syndrome. PROCEDURE PERFORMED: Right open carpal tunnel release. AGRICULTURAL AND FORESTRY SUPERVISOR: None. ANESTHESIOLOGIST: Zari Mendoza MD. ANESTHESIA: The patient received a LMA with 10 mL of lidocaine 1% with epinephrine. ESTIMATED BLOOD LOSS: 10 mL. TOURNIQUET TIME: 6 minutes at 250 mmHg. ANTIBIOTICS: Ancef 2 g. COMPLICATIONS: None. HISTORY OF PRESENT ILLNESS: Mr. Modi is a 73-year-old male with acute onset of carpal tunnel syndrome. The patient has increasing pain. Initially, he received relief from a steroid injection, but continued to have pain and desired an open release. I discussed with the patient the risks and benefits of surgery to include pain, scar, bleeding, infection, damage to vital structures, decreased range of motion and strength, damage to vital structures, nerves, arteries and tendons, need for further surgeries, failure to release, damage to vital structures, loss of life or limb. The patient understood the risks and benefits and elected to proceed. DESCRIPTION OF PROCEDURE: Time-out was performed designating the patient's right upper extremity as the operative site based on site, consents, and marking. The patient's right upper extremity was prepped and draped in sterile fashion. Tourniquet was brought up to be left for 6 minutes. Incision was made proximal to Patel's cardinal line on the radial aspect of the fourth ray down through skin, came down to the palmar fascia, came down through the patient's palmaris brevis, came down to the transverse carpal ligament with a knife protecting with hemostat, protected the nerve throughout and ensured it was released proximally, so there was no potential risk of compression proximally. Let the tourniquet down after 6 minutes. There was bleeding which was controlled. We washed the wound. We closed with 4-0 nylon and injected with 8 mL of lidocaine, 2 were used subcutaneous. The patient will be discharged to home. Dressing removed in about 5-7 days. Will follow up me in 8-12 days for suture removal. Will be sent home with pain medications. Job ID: [id number]
--- NOTE | 2019-03-13 13:20 | EKG ---
Test Reason : PREOP Blood Pressure : / mmHG Vent. Rate : 052 BPM Atrial Rate : 052 BPM P-R Int : 274 ms QRS Dur : 108 ms QT Int : 452 ms P-R-T Axes : 042 069 052 degrees QTc Int : 420 ms Sinus bradycardia with 1st degree A-V block Incomplete left bundle branch block Borderline ECG When compared with ECG of 22-JUN-2018 08:22, Vent. rate has decreased BY 48 BPM Confirmed by NICK DOSS (2) on 03/13/2019 1:19:38 PM Referred By: NAOMI Confirmed By:NICK DOSS
== END 2019-03-12 11:45 | disposition home or self-care (01) ==
LOC: SDC 06:53
PROVIDERS: ATTEND Orthopaedic Surgery
PROC: 01N50ZZ Release Median Nerve, Open Approach (ICD-10-PCS; principal; 2019-03-12)
DX: G56.01 Carpal tunnel syndrome, right upper limb (principal); J44.9 Chronic obstructive pulmonary disease, unspecified; Z88.5 Allergy status to narcotic agent; Z79.2 Long term (current) use of antibiotics; Z79.1 Long term (current) use of non-steroidal anti-inflammatories (NSAID)
CPT/HCPCS: 36415; 85025; 85610; 85730; 93005; 93010; J0690; J2001; J3010

== ENCOUNTER 2019-06-04 08:19 | Emergency (ER) | payer MEDICARE ==
--- NOTE | 2019-06-04 08:53 | RAD ---
Chest 2 views: 06/04/2019 COMPARISON: 05/15/2019 HISTORY: Cough FINDINGS: Mild increased linear interstitial density noted bilaterally. There is pulmonary hyperinfla tion. Question a history of COPD. No pneumothorax or pleural fluid. No focal consolidation or alveolar edema. Stable tiny nodular densi ty noted in the left lung base suggests a nipple shadow. IMPRESSION: Chronic-appearing findings as described above.
== END 2019-06-04 09:45 | disposition home or self-care (01) ==
LOC: ERS 08:19
DX: J18.9 Pneumonia, unspecified organism (principal); I71.4 Abdominal aortic aneurysm, without rupture; E78.5 Hyperlipidemia, unspecified; E78.00 Pure hypercholesterolemia, unspecified; I95.9 Hypotension, unspecified; Z79.899 Other long term (current) drug therapy
CPT/HCPCS: 71046

== ENCOUNTER 2019-08-26 08:49 | Outpatient (CLI) | payer MEDICARE | END 2019-08-26 08:50 | disposition home or self-care (01) | LOC: CTENTCT 08:49 | PROVIDERS: ATTEND Student in an Organized Health Care Education/Training Program | DX: J32.9 Chronic sinusitis, unspecified (principal) | CPT/HCPCS: 70486 ==

== ENCOUNTER 2019-09-03 12:27 | Day surgery (SDC) | payer MEDICARE ==
[~2019-09-03 12:27] MED LIST: Dexamethasone 20 MG/5 ML VIAL ONE; Glycopyrrolate 0.2 MG/ML 5 ML SYRINGE ONE; Lidocaine 1% PF 5 ML VIAL ONE; Ondansetron PF 4 MG/2 ML Vial ONE; PHENYLEPHRINE-NS 100 MCG/ML 10 ML SYRINGE ONE; PROPOFOL 200 MG/20 ML VIAL ONE; Rocuronium Bromide 10 MG/ML (10ML VIAL) ONE; Succinylcholine Chloride 20 MG/ML 10 ml SYRINGE FS ONE; ePHEDrine/0.9% NaCl/PF SYRINGE 50 mg/10 ml ONE
[2019-09-03 14:22] LABS: Hemoglobin 14.4 g/dL (14.0-18.0)
[2019-09-03] MEDS ORDERED: AFRIN NASAL MIST 15 ML BOT ONE ×2 (14:32→17:31)
[2019-09-03 14:47] LABS: Anion Gap 9 mmol/L (10-20); BUN (Urea Nitrogen) 18 mg/dL (8.4-25.7); Calc. Creatinine Clearance 0 mL/min (70-130); Calcium 9.3 mg/dL (7.8-10.44); Carbon Dioxide 29 mmol/L (23-31); Chloride 103 mmol/L (98-107); Estimated GFR-MDRD 68; Glucose 94 mg/dL (83-110); Potassium 4.3 mmol/L (3.5-5.1); Sodium 137 mmol/L (136-145)
[2019-09-03] MEDS ORDERED: EPINEPHrine 1 MG/ML AMP ONE (15:58)
[2019-09-03] MEDS ORDERED: Lidocaine 1% w/Epinephrine 1:100K 20 ML VIAL ONE (15:58)
[2019-09-03] MEDS ORDERED: Fentanyl 100 MCG/2 ML VIAL ONE ×3 (17:36→20:52)
[2019-09-03] MEDS ORDERED: Propofol 1,000 MG/100 ML VIAL IV ONE (17:36)
[2019-09-03] MEDS ORDERED: Phenylephrine HCL 10 MG/ML VIAL ONE (18:54)
[2019-09-03] MEDS ORDERED: Bacitracin Zinc Ointment 30 gm TUBE ONE (19:45)
[2019-09-03] MEDS ORDERED: HYDROcodone/Acetaminophen 5/325 mg Tablet ONE (21:13)
--- NOTE | 2019-09-04 12:00 | OP ---
DATE OF PROCEDURE: 09/03/2019 PREOPERATIVE DIAGNOSES: Chronic rhinosinusitis, recurrent acute rhinosinusitis, turbinate hypertrophy, and nasal valve collapse. PROCEDURES: Bilateral image-guided endoscopic sinus surgery, bilateral maxillary antrostomies with removal of tissues inside the maxillary sinus, bilateral total ethmoidectomy, bilateral sphenoidotomy with removal of tissue from inside the sphenoid sinuses, bilateral frontal sinusotomy with removal of tissue inside the frontal sinuses, bilateral inferior turbinate submucosal resection, bilateral lateralization of inferior turbinates and reconstruction of the nasal valves. PERMIT: Procedures, benefits and risks including those of bleeding, infection, injury to anesthesia, allergic reactions, cerebrospinal fluid leak and scarring necessitating revision and repair and alternatives were reviewed with the patient and family who expressed understanding of the information. A consent form was signed and witnessed and a paper copy of the consent form is available for review in the paper chart. INDICATIONS: This is a male patient, presenting to clinic with recurrent acute sinusitis as well as chronic sinusitis symptoms and an immunologic deficiency diagnosis with previous history of CLL. The patient has had several rounds of antibiotics, however, still has purulent material and inflammation seen on CT scan and the patient is now brought to the operating room for an operative treatment. ASSISTANTS: None. FINDINGS: Purulent material found in bilateral sinuses, significantly in the maxillary sinuses; polypoid tissue throughout the sinuses as well as inflammation. DESCRIPTION OF OPERATION: The patient was brought to the operating room and laid supine on the operating room table. General endotracheal anesthesia was administered. The patient was then prepped and draped in the usual fashion. Image guidance was then calibrated and used throughout the entire case for localization. The nose was then evaluated endoscopically and 6 cottonoids soaked in Afrin were then placed bilaterally and after 2 minutes were removed. An oscillating microdebrider was used to remove small polypoid tissue bilaterally that was obstructive. At this point, the sinuses were then evaluated on the left side first. A maxillary antrostomy was performed using a backbiter and an oscillating microdebrider and a ball-ended seeker as well as image guidance localization. The uncinate was taken down all the way up towards the frontal sinus. After this was performed, the maxillary antrum was then widely opened using an oscillating microdebrider. Polypoid tissue was removed from inside the maxillary sinus utilizing an oscillating debrider. After this was performed, next the anterior ethmoid bulla was taken down utilizing oscillating microdebrider followed by opening up of the superior meatus also using an oscillating debrider. The sphenoid os was then identified just medial to the superior turbinate. The opening of the sphenoid sinus was then identified. The entire face of the sphenoid sinus was taken down utilizing 2 Kerrison, also utilizing a Jg from inside the sphenoid sinus. Utilizing an oscillating microdebrider, tissue was removed. The skull base was then traced from posterior to anterior direction removing the posterior and anterior ethmoid air cells, taking care to avoid injury to the cribriform plate or the lamina papyracea. This then led straight to the frontal sinus and the frontal recess was then widely opened up utilizing a chain Kerrison punch. After this was performed, the same procedure was performed on the opposite side with similar results. The maxillary antrostomy was opened utilizing a backbiter and oscillating debrider in the similar fashion as the opposite side along with removal of contents from the maxillary sinus utilizing an oscillating debrider. Next, the anterior ethmoid bulla was taken down utilizing an oscillating microdebrider. The superior meatus was then opened up utilizing a debrider just medial to the superior turbinate. The sphenoid os was identified and widely opened up using 2 Kerrison and Jg. Polypoid tissue was removed from inside the sphenoid sinus followed by tracing the skull base from posterior to anterior direction, removing the posterior and anterior ethmoid air cells utilizing curved suction and oscillating debrider. Care was taken to avoid injury to the lamina papyracea or the cribriform plate. This then led to the frontal recess and the frontal sinus was then widely opened up utilizing a chain Kerrison punch. The sinuses were irrigated copiously and meticulous hemostasis was achieved. Afrin-soaked pledgets were used to help with any remaining bleeding. Afterwards, NasoPore packing was then placed in the middle meatus bilaterally and the endoscopes were withdrawn. Next, attention was turned to the bilateral inferior turbinate reductions, which were performed next. A stab incision was made along the anterior head of each inferior turbinate utilizing a 15 blade followed by elevation with an oscillating microdebrider, which was placed into the pocket to remove erectile tissue from inside the inferior turbinates on both sides. After this was performed, both inferior turbinates were lateralized using a Tidwell elevator. At this point, attention was turned to the nasal valve reconstruction. Bilateral nasal valve stenosis and collapse were observed with the endoscopes. The left nasal ala was stabilized with a double-prong skin hook and an implant was inserted into the left internal nasal wall at the level of the nasal vibrissae. An implant was inserted deep to the cartilaginous structure of the nasal ala and left nasal sidewall and seated superiorly lateral to the nasal bone edge to anchor the left nasal sidewall and prevent collapse. The implant was seated well and palpation of the nasal wall showed good position of the implant. Attention was turned to the right side and the same procedure was performed. The right nasal ala was stabilized with a double-prong skin hook and an implant was inserted into the right internal nasal wall at the level of the nasal vibrissae. The implant was inserted deep to the cartilaginous structure of the nasal ala and the right nasal sidewall and seated superior laterally over the nasal bone to anchor the nasal sidewall to prevent collapse. The implant was seated well and palpation of the nasal wall showed good position of the implant. At this point, the patient had tolerated the procedure well and was turned back to Anesthesia for emergence without complications. Job ID: [id number]
== END 2019-09-03 21:44 | disposition home or self-care (01) ==
LOC: SDC 12:27
PROVIDERS: ATTEND Student in an Organized Health Care Education/Training Program
PROC: 8E09XBZ Computer Assisted Procedure of Head and Neck Region (ICD-10-PCS; principal; 2019-09-03)
PROC: 09TV8ZZ Resection of Left Ethmoid Sinus, Via Natural or Artificial Opening Endoscopic (ICD-10-PCS; 2019-09-03)
PROC: 09TU8ZZ Resection of Right Ethmoid Sinus, Via Natural or Artificial Opening Endoscopic (ICD-10-PCS; 2019-09-03)
PROC: 09BT8ZZ Excision of Left Frontal Sinus, Via Natural or Artificial Opening Endoscopic (ICD-10-PCS; 2019-09-03)
PROC: 09BW8ZZ Excision of Right Sphenoid Sinus, Via Natural or Artificial Opening Endoscopic (ICD-10-PCS; 2019-09-03)
PROC: 09BX8ZZ Excision of Left Sphenoid Sinus, Via Natural or Artificial Opening Endoscopic (ICD-10-PCS; 2019-09-03)
PROC: 09BQ8ZZ Excision of Right Maxillary Sinus, Via Natural or Artificial Opening Endoscopic (ICD-10-PCS; 2019-09-03)
PROC: 09BR8ZZ Excision of Left Maxillary Sinus, Via Natural or Artificial Opening Endoscopic (ICD-10-PCS; 2019-09-03)
PROC: 09BS8ZZ Excision of Right Frontal Sinus, Via Natural or Artificial Opening Endoscopic (ICD-10-PCS; 2019-09-03)
PROC: 09TL8ZZ Resection of Nasal Turbinate, Via Natural or Artificial Opening Endoscopic (ICD-10-PCS; 2019-09-03)
PROC: 09UK0JZ Supplement Nasal Mucosa and Soft Tissue with Synthetic Substitute, Open Approach (ICD-10-PCS; 2019-09-03)
DX: J01.41 Acute recurrent pansinusitis (principal); J32.4 Chronic pansinusitis; J34.2 Deviated nasal septum; J34.3 Hypertrophy of nasal turbinates; J34.89 Other specified disorders of nose and nasal sinuses; J44.9 Chronic obstructive pulmonary disease, unspecified; Z85.6 Personal history of leukemia; Z87.891 Personal history of nicotine dependence; Z79.899 Other long term (current) drug therapy; Z88.5 Allergy status to narcotic agent
CPT/HCPCS: 36415; 80048; 85014; 85018; 87070; 87076; 87077; 87102; 87186; 87205; J0171; J1100; J2001; J2370; J2405; J2704; J3010

== ENCOUNTER 2019-09-30 15:00 | Inpatient (IN) | payer MEDICARE ==
[~2019-09-30 15:00] MED LIST changes: -Dexamethasone 20 MG/5 ML VIAL ONE; -Glycopyrrolate 0.2 MG/ML 5 ML SYRINGE ONE; +Iopamidol-370 76% 500 ML 1 ML ONE; -Lidocaine 1% PF 5 ML VIAL ONE; -Ondansetron PF 4 MG/2 ML Vial ONE; -PHENYLEPHRINE-NS 100 MCG/ML 10 ML SYRINGE ONE; -PROPOFOL 200 MG/20 ML VIAL ONE; -Rocuronium Bromide 10 MG/ML (10ML VIAL) ONE; -Succinylcholine Chloride 20 MG/ML 10 ml SYRINGE FS ONE; -ePHEDrine/0.9% NaCl/PF SYRINGE 50 mg/10 ml ONE
[2019-09-30 16:09] LABS: #Basophils 0.1 thou/uL (0.0-0.2); #Eosinphils 0.1 thou/uL (0.0-0.7); #Lymphocytes 5.5 thou/uL (1.20-3.40); #Neutrophils 11.1 thou/uL (1.40-6.50); %Basophils 0.8 % (0.0-1.0); %Eosinophils 0.3 % (0.0-10.0); %Lymphocytes 30.9 % (21.0-51.0); %Monocytes 5.4 % (0.0-10.0); %Neutrophils 62.6 % (42.0-75.0); Hemoglobin 12.9 g/dL (14.0-18.0); Mean Corpuscular HGB CONC 34.9 g/dL (32.0-36.0); Mean Corpuscular Hemoglobin 32.8 pg (27.0-31.0); Mean Platelet Volume 7.2 fL (7.4-10.4); Platelet Count 139 thou/uL (130-400); RBC Distribution Width 12.4 % (11.5-14.5); Red Blood Cell (RBC) Count 3.95 mill/uL (4.70-6.10); White Blood Cell (WBC) Count 17.8 thou/uL (4.8-10.8)
--- NOTE | 2019-09-30 16:12 | RAD ---
Chest one view HISTORY: Chest pain. COMPARISON: 06/04/2019. FINDINGS: Cardiac silhouette and pulmonary vasculature are unremarkable. Lungs remain hyperinflated. Mediastinum is midline. Slight elevation the right hemidiaphragm is unchanged in appearance. No confluent airspace consolidation or evidence of pneumothorax. There is S-shaped curvature of the thor acic spine. Postoperative changes left shoulder partially visualized. IMPRESSION: Chronic-type findings are stable. No active cardiopulmonary abnormalities are demonstrate d.
[2019-09-30 16:31] LABS: ALT (SGPT) 10 U/L (8-55); AST (SGOT) 15 U/L (5-34); Albumin 4.1 g/dL (3.4-4.8); Alkaline Phosphatase 104 U/L (40-110); Anion Gap 14 mmol/L (10-20); BUN (Urea Nitrogen) 22 mg/dL (8.4-25.7); Bilirubin, Total 0.7 mg/dL (0.2-1.2); CK (CPK) 18 U/L (30-200); Calc. Creatinine Clearance 0 mL/min (70-130); Calcium 9.1 mg/dL (7.8-10.44); Carbon Dioxide 24 mmol/L (23-31); Chloride 101 mmol/L (98-107); Estimated GFR-MDRD 81; Globulin 1.6 g/dL (2.4-3.5); Glucose 111 mg/dL (83-110); Potassium 4.7 mmol/L (3.5-5.1); Protein, Total 5.7 g/dL (5.8-8.1); Sodium 134 mmol/L (136-145)
[2019-09-30] MEDS ORDERED: cefTRIAXone\\ROCEPHIN 2 GM VIAL ONE (17:36)
[2019-09-30] MEDS ORDERED: Azithromycin 500 MG VIAL ONE (17:46)
--- NOTE | 2019-09-30 20:05 | CT ---
CT PULMONARY ANGIOGRAM WITH IV CONTRAST AND 3D POST PROCESSING: History: Recent post-op. Shortness of breath, dyspnea. FINDINGS: seen in the pulmonary vascular . There are vascular calcifications without thor acic aortic aneurysm or dissection. There is scarring in the lung apices. There is patchy consolidati on in the left lower lobe. No pleural effusions are identified. Upper abdominal organs demonstrate == ========. There are degenerative changes in the spine. IMPRESSION: 1. No CT evidence of pulmonary embolism. 2. Left lower lobe pneumonia. POS: OFF
[2019-09-30] MEDS ORDERED: Ondansetron PF 4 MG/2 ML Vial IVP PRN (22:00)
[2019-09-30] MEDS ORDERED: Ondansetron ODT 4 MG TAB PO PRN (22:00)
[2019-09-30 22:13] VITALS: BMI 23.2
[2019-09-30] MEDS: guaiFENesin/Codeine Phosphate 200 mg/20 mg 10 ml UD Cup PO PRN (22:29)
[2019-09-30] MEDS: Acetaminophen 325 MG TAB PO PRN (22:29)
--- NOTE | 2019-09-30 22:45 | HP ---
PRIMARY CARE PHYSICIAN: Dr. Luis Sandoval. CHIEF COMPLAINT: Runny nose and coughing as well as fever. HISTORY OF PRESENT ILLNESS: Mr. Modi is a pleasant 74-year-old gentleman, who presents to the emergency room with runny nose, cough, and fever. He says his symptoms started about 5 days ago. He had recently had sinus surgery, where he says he was fairly sick off and on with a chronic runny nose and cough at that time. He had been on amoxicillin followed by Augmentin more recently and had gotten better after the surgery, which was 3 weeks ago; but about 5 days ago, he started having a cough again. He says he was barely able to bring anything up, but when he did, it was a grayish yellowish color and he did have some blood as well. He noticed that he was starting to have more sinus drainage as well. He also had subjective fever as well as shortness of breath and he felt a heaviness in his chest for the past 4 days. He also had decreased appetite, but there was no nausea, no vomiting. He has had some constipation, but no other change in bowels. The patient came to the ER, where he was evaluated. A CT angiogram of the chest revealed a left lower lobe pneumonia and he is being admitted for further evaluation. REVIEW OF SYSTEMS: All systems were reviewed and are negative except for that mentioned in the history of present illness. PAST MEDICAL HISTORY: Significant for CLL and abdominal aortic aneurysm. PAST SURGICAL HISTORY: He has had surgery on his nasal passages by Dr. Ricardo as well as carotid surgery and back surgery. He also had a AAA repair about 5 years ago at [facility] in [place]. ALLERGIES: MORPHINE. SOCIAL HISTORY: He is a former smoker. He quit about 4 to 5 years ago. Prior to that, he smoked about 4-5 cigarettes a day. Denies any alcohol use. He is . Code status is full code. FAMILY HISTORY: Significant for brother who had heart disease. MEDICATIONS: Celebrex. PHYSICAL EXAMINATION: GENERAL: He is alert and oriented. He appears to be in no acute distress. He is well developed and well nourished. VITAL SIGNS: Blood pressure was 104/64, heart rate 96, respiratory rate of 18, temperature was 99, O2 saturation was 95% on room air. HEENT: His pupils are equal, round, and reactive. Extraocular muscles are intact. Sclerae anicteric. Throat, no erythema, no exudates. NECK: No adenopathy. No bruits. LUNGS: He has some wheezing as well as some rhonchi in the left lower lung field. No appreciable rales. CARDIOVASCULAR: He has a normal S1 and S2. I did not appreciate an S3 or S4. No murmurs, clicks, or rubs. ABDOMEN: Soft, nontender, and nondistended. Positive for bowel sounds. No rebound. No guarding. No organomegaly. EXTREMITIES: There is no clubbing or cyanosis. No edema. NEUROLOGICAL: Grossly nonfocal. SKIN AND INTEGUMENT: There are no skin changes. No rash. LABORATORY DATA: White blood cell count 17.8, hemoglobin 12.9, hematocrit is 37.1, and platelet count is 139. Sodium 134, potassium 4.7, chloride is 101, CO2 is 24, BUN of 22, creatinine 0.9, glucose is 111. Again, he had a CT angio which showed a left lower lobe pneumonia. Chest x-ray by my reading showed normal heart size and no obvious evidence of infiltrate. ASSESSMENT: This is a 74-year-old gentleman, who presents to the emergency room with cough, shortness of breath, and elevated white blood cell count and radiologic evidence of pneumonia or infiltrate, who has been on several antibiotics for his sinusitis recently. 1. For pneumonia, which could be an extension of the sinusitis. He has been given azithromycin and Rocephin in the ER. We will go ahead and continue these antibiotics and we will add Flagyl for anaerobic coverage and see if we can get a sputum culture. The patient will also be placed on deep venous thrombosis prophylaxis as well as GI prophylaxis. 2. Chronic lymphocytic leukemia. This has been more or less quiescent. The patient states that he has not required any treatment for this and is currently not undergoing any treatment; therefore, it appears to be clinically stable. Job ID: [id number]
[2019-10-01] MEDS: Acetaminophen 325 MG TAB PO PRN ×3 (04:10→14:06)
[2019-10-01] MEDS: guaiFENesin/Codeine Phosphate 200 mg/20 mg 10 ml UD Cup PO PRN ×4 (04:39→21:37)
[2019-10-01 06:09] LABS: Anion Gap 11 mmol/L (10-20); BUN (Urea Nitrogen) 16 mg/dL (8.4-25.7); Calc. Creatinine Clearance 101 mL/min (70-130); Calcium 8.8 mg/dL (7.8-10.44); Carbon Dioxide 25 mmol/L (23-31); Chloride 102 mmol/L (98-107); Estimated GFR-MDRD Greater than 90; Glucose 117 mg/dL (83-110); Sodium 134 mmol/L (136-145)
[2019-10-01 06:50] LABS: #Lymphocytes 4.3 thou/uL (1.20-3.40); #Monocytes 0.5 thou/uL (0.11-0.59); #Neutrophils 7.2 thou/uL (1.40-6.50); %Basophils 0.3 % (0.0-1.0); %Eosinophils 0.2 % (0.0-10.0); %Lymphocytes 35.7 % (21.0-51.0); %Monocytes 4.3 % (0.0-10.0); %Neutrophils 59.6 % (42.0-75.0); Hemoglobin 10.4 g/dL (14.0-18.0); Mean Corpuscular Hemoglobin 31.9 pg (27.0-31.0); Mean Platelet Volume 7.5 fL (7.4-10.4); Platelet Count 101 thou/uL (130-400); RBC Distribution Width 12.4 % (11.5-14.5); Red Blood Cell (RBC) Count 3.25 mill/uL (4.70-6.10)
--- NOTE | 2019-10-01 07:17 | CT ---
CT PULMONARY ANGIOGRAM WITH IV CONTRAST AND 3D POST PROCESSING: History: Recent post-op. Shortness of breath, dyspnea. FINDINGS: No filling defects are seen in the pulmonary artery vasculature to suggest pulmonary embolism. There are vascular calcification and ectasia of the thoracic aorta without dissection. No thoracic aortic a neurysm is seen. No fluid or pericardial effusions are seen. There is scarring in the lung apices. There is patchy con solidation in the left lower lobe. Upper abdominal tomograms demonstrates splenomegaly. There are degenerative changes in the spine. IMPRESSION: 1. No CT evidence of pulmonary embolism. 2. Left lower lobe pneumonia. POS: OFF
[2019-10-01] MEDS: Enoxaparin Sodium 40 MG/0.4 ML SYRINGE SC SCH (09:23)
[2019-10-01] MEDS: metroNIDAZOLE 500 MG TAB PO SCH ×3 (09:24→20:13)
[2019-10-01] MEDS: Famotidine 20 MG TAB PO SCH ×2 (09:24→20:13)
[2019-10-01] MEDS: Vancomycin HCl 1 GM in Premix Bag 1 BAG IVPB SCH (13:56)
[2019-10-01] MEDS: cefTRIAXone\\ROCEPHIN 1 GM in Sodium Chloride 0.9% 100 ML IVPB SCH (17:51)
[2019-10-01] MEDS ORDERED: Azithromycin 500 MG in Sodium Chloride 0.9% 250 ML 250 ML IVPB SCH (18:00)
--- NOTE | 2019-10-01 21:55 | PDOC.HOSPP ---
- Subjective Encounter Date: 10/01/19 Encounter Time: 10:00 Subjective: no overnight events. This morning, feels more energetic, less frequent coughing and sputum production. no other complaints - Objective Vital Signs & Weight: Vital Signs (12 hours) Temp Pulse Resp BP BP Pulse Ox 10/01/19 19:32 98.4 F 68 20 98/57 L 94 L 10/01/19 17:05 65 20 98 10/01/19 11:28 98.6 F 72 17 98/59 L 100 Weight Admit Weight 185 lb 14.4 oz Weight 185 lb 14.4 oz Result Diagrams: 10/01/19 05:20 10/01/19 05:20 Hospitalist ROS - Review of Systems Constitutional: denies: fever, chills, sweats, weakness, malaise, other Respiratory: reports: cough, pleuritic pain, sputum. denies: dry, shortness of breath, hemoptysis, SOB with excertion, wheezing, other Cardiovascular: denies: chest pain, palpitations, orthopnea, paroxysmal noc. dyspnea, edema, light headedness, other Gastrointestinal: denies: nausea, vomiting, abdominal pain, diarrhea, constipation, melena, hematochezia, other Genitourinary: denies: dysuria, frequency, incontinence, hematuria, retention, other Neurological: denies: weakness, numbness, incoordination, change in speech, confusion, seizures, other - Medication Medications: Active Medications Generic Name Dose Route Start Last Admin Trade Name Freq PRN Reason Stop Dose Admin Acetaminophen 650 mg 09/30/19 22:00 10/01/19 14:06 Tylenol PO 650 mg Q4H PRN Administration Headache/Fever/Mild Pain (1-3) Albuterol/Ipratropium 3 ml 09/30/19 22:00 10/01/19 17:05 Duoneb NEB 3 ml [id number] PRN Administration SOB &/or Wheezing Enoxaparin Sodium 40 mg 10/01/19 09:00 10/01/19 09:23 Lovenox SC 40 mg 0900 SANDY Administration Famotidine 20 mg 10/01/19 09:00 10/01/19 20:13 Pepcid PO 20 mg BID SANDY Administration Guaifenesin/Codeine Phosphate 10 ml 09/30/19 22:00 10/01/19 21:37 Robitussin Ac PO 10 ml Q6H PRN Administration Cough Ceftriaxone Sodium 1 gm/ 100 mls @ 200 mls/hr 10/01/19 18:00 10/01/19 17:51 Sodium Chloride IVPB 100 mls 1800 SANDY Administration Vancomycin HCl 1 gm/ Device 200 mls @ 200 mls/hr 10/01/19 13:00 10/01/19 13: 56 IVPB 200 mls 0100,1300 SANDY Administration Metronidazole 500 mg 10/01/19 09:00 10/01/19 20:13 Flagyl PO 500 mg TID SANDY Administration - Exam General Appearance: NAD, awake alert Eye: PERRL ENT: normocephalic atraumatic, moist mucosa Neck: no JVD Heart: RRR, no murmur, no gallops, no rubs Respiratory: CTAB, no wheezes, no rales, no ronchi, normal chest expansion, no tachypnea Gastrointestinal: soft, non-tender, non-distended, normal bowel sounds Extremities: no edema Neurological: cranial nerve grossly intact Musculoskeletal: normal tone, normal strength Psychiatric: normal affect, normal behavior, A&O x 3 Hosp A/P (1) Streptococcus pneumoniae Status: Acute (2) Bacteremia due to Streptococcus pneumoniae Code(s): R78.81 - BACTEREMIA; B95.3 - STREPTOCOCCUS PNEUMONIAE CAUSING DISEASES CLASSD ELSWHR Status: Acute - Plan -HD stable; qSOFA 0/3 -BCx growing strep pneum in two sets -likely source pulmonary; RCx contaminated -will repeat BCx -changed ceftriaxone to vancomycin, stopped flagyl as though patient has sinus pathology, endorses no risk factors for aspiration; continue ceftriaxone for gram negative coverage; pending BCx susceptibilities -continue IVF
[2019-10-02] MEDS: Vancomycin HCl 1 GM in Premix Bag 1 BAG IVPB SCH ×2 (01:08→13:40)
[2019-10-02] MEDS: Acetaminophen 325 MG TAB PO PRN ×3 (02:17→17:06)
[2019-10-02 06:48] LABS: Anion Gap 12 mmol/L (10-20); BUN (Urea Nitrogen) 15 mg/dL (8.4-25.7); Calc. Creatinine Clearance 95 mL/min (70-130); Calcium 8.6 mg/dL (7.8-10.44); Carbon Dioxide 23 mmol/L (23-31); Chloride 105 mmol/L (98-107); Estimated GFR-MDRD Greater than 90; Glucose 114 mg/dL (83-110); Magnesium 2.1 mg/dL (1.6-2.6); Potassium 4.3 mmol/L (3.5-5.1); Sodium 136 mmol/L (136-145)
[2019-10-02 06:59] LABS: Band 3 % (5-11); Eosinophils 1 % (0-10); Hemoglobin 10.4 g/dL (14.0-18.0); Lymphocytes 42 % (21-51); MDiff Complete? YES; Mean Corpuscular Hemoglobin 31.5 pg (27.0-31.0); Mean Corpuscular Volume 95.4 fL (78.0-98.0); Mean Platelet Volume 7.5 fL (7.4-10.4); Monocytes 2 % (0-10); Neutrophil 52 % (42-75); Platelet Count 93 thou/uL (130-400); Platelet Morphology Comment Appears Decreased; RBC Distribution Width 12.2 % (11.5-14.5); Red Blood Cell (RBC) Count 3.31 mill/uL (4.70-6.10); White Blood Cell (WBC) Count 6.6 thou/uL (4.8-10.8)
[2019-10-02] MEDS: Famotidine 20 MG TAB PO SCH ×2 (09:43→20:20)
[2019-10-02] MEDS: Enoxaparin Sodium 40 MG/0.4 ML SYRINGE SC SCH (09:46)
[2019-10-02] MEDS: Sodium Chloride 0.9% 1,000 ML IV SCH ×2 (13:39→23:25)
--- NOTE | 2019-10-02 13:56 | PQF ---
CLINICAL DOCUMENTATION IMPROVEMENT CLARIFICATION FORM: ICD-10 Updated PLEASE DO AN ADDENDUM TO THE PROGRESS NOTE WITH ANY DOCUMENTATION UPDATES OR ADDITIONS AND CARRY THROUGH TO DC SUMMARY. THANK YOU. Date: 10/02/19 ATTN: DR. SOW Please exercise your independent, professional judgment in responding to the clarification form. Clinical indicators are provided on the bottom of this form for your review Please check appropriate box(s): [ x] Protein Calorie Malnutrition: [ x] Mild [ ] Moderate [ ] Severe [ ] Other Malnutrition (please specify) __ [ ] Underweight without malnutrition [ ] Cachexia [ ] Other diagnosis [ ] Unable to determine In addition, please specify: Present on Admission (POA): [ x ] Yes [ ] No [ ] Unable to determine CLINICAL INDICATORS - SIGNS / SYMPTOMS / LABS / RESULTS AND LOCATION IN MR DIETARY ASSESSMENT 10/01: "WT LOSS X 6 MONTHS PER PT REPORT" "CATABOLIC ILLNESS, POOR APPETITE" "MODERATE MUSCLE WASTING TO CLAVICLE AREA PER PT REPORT SUGGESTING SEVERE MALNUTRITION IN THE CONTEXT OF CHRONIC ILLNESS" BMI 23.2 RISKS: PNEUMONIA (H&P 09/30) RECENT SURGERY (H&P 09/30) H/O CLL (H&P 09/30) TREATMENT: DIETARY CONSULT 10/01 DIETARY SUPPLEMENTS ORDERED 09/30 Moderate Malnutrition (in acute illness) Energy Intake: <75% of estimated energy requirement for > 7 days Weight Loss: 1-2%/1 week; 5%/ 1 month; 7.5%/3 months Other: mild body fat loss; mild muscle mass loss; mild fluid accumulation; Severe Malnutrition (in acute illness) Energy Intake: < 50% of estimated energy requirement for > 5 days Weight Loss: >1-2%/1 week; >5%/1 month; >7.5%/3 months Other: moderate body fat loss; moderate muscle mass loss; moderate- severe fluid accumulation; measurably reduced manager patient strength Moderate Malnutrition (in chronic illness) Energy Intake: <75% of estimated energy requirement for >1 month Weight Loss: 5%/1 month; 7.5%/3 months; 10%/6 months; 20%/1 year Other: mild body fat loss; mild muscle mass loss; mild fluid accumulation Severe Malnutrition (in chronic illness) Energy Intake: <75% of estimated energy requirement for >1 month Weight Loss: >5%/1 month; >7.5%/3 months; >10%/6 months; >20%/1 year Other: severe body fat loss; severe muscle mass loss; severe fluid accumulation ; measurably reduced manager patient strength (This form is maintained as a part of the permanent medical record) 2014 Number 100. All Rights Reserved [email or web address] Office: [phone] [facility] MED[facility] CENTERMyrna
[2019-10-02] MEDS: cefTRIAXone\\ROCEPHIN 1 GM in Sodium Chloride 0.9% 100 ML IVPB SCH (17:06)
[2019-10-02] MEDS: Senokot S 8.6-50 MG TAB PO SCH (20:20)
[2019-10-02] MEDS ORDERED: guaiFENesin ER 600 MG TAB PO SCH (21:00)
--- NOTE | 2019-10-02 23:03 | PDOC.HOSPP ---
- Subjective Encounter Date: 10/02/19 Encounter Time: 09:00 Subjective: overnight, increased coughing and had difficult time sleeping. Feels worse today overall. - Objective Vital Signs & Weight: Vital Signs (12 hours) Temp Pulse Resp BP BP Pulse Ox 10/02/19 20:00 97.6 F 64 16 108/67 96 10/02/19 19:45 97 10/02/19 16:19 72 18 97 10/02/19 16:00 97.6 F 73 20 116/66 94 L Weight Admit Weight 185 lb 14.4 oz Weight 185 lb 14.4 oz Result Diagrams: 10/02/19 05:55 10/02/19 05:55 Hospitalist ROS - Review of Systems Constitutional: reports: weakness, malaise. denies: fever, chills, sweats, other Respiratory: reports: cough, dry, shortness of breath, pleuritic pain. denies: hemoptysis, SOB with excertion, sputum, wheezing Cardiovascular: denies: chest pain, palpitations, orthopnea, paroxysmal noc. dyspnea, edema, light headedness, other Gastrointestinal: reports: nausea. denies: vomiting, abdominal pain, diarrhea, constipation, melena, hematochezia, other Genitourinary: denies: dysuria, frequency, incontinence, hematuria, retention, other Neurological: denies: weakness - Medication Medications: Active Medications Generic Name Dose Route Start Last Admin Trade Name Freq PRN Reason Stop Dose Admin Acetaminophen 650 mg 09/30/19 22:00 10/02/19 17:06 Tylenol PO 650 mg Q4H PRN Administration Headache/Fever/Mild Pain (1-3) Albuterol/Ipratropium 3 ml 09/30/19 22:00 10/02/19 16:19 Duoneb NEB 3 ml [id number] PRN Administration SOB &/or Wheezing Enoxaparin Sodium 40 mg 10/01/19 09:00 10/02/19 09:46 Lovenox SC Not Given 0900 SANDY Famotidine 20 mg 10/01/19 09:00 10/02/19 20:20 Pepcid PO Not Given BID SANDY Ceftriaxone Sodium 1 gm/ 100 mls @ 200 mls/hr 10/01/19 18:00 10/02/19 17:06 Sodium Chloride IVPB 100 mls 1800 SANDY Administration Vancomycin HCl 1 gm/ Device 200 mls @ 200 mls/hr 10/01/19 13:00 10/02/19 13: 40 IVPB 200 mls 0100,1300 SANDY Administration Sodium Chloride 1,000 mls @ 70 mls/hr 10/02/19 09:45 10/02/19 13:39 Normal Saline 0.9% IV 1,000 mls .[id number] SANDY Administration Senna/Docusate Sodium 1 tab 10/02/19 21:00 10/02/19 20:20 Senokot S PO 1 tab BID SANDY Administration Sodium Chloride 10 ml 10/02/19 21:00 10/02/19 20:20 Flush - Normal Saline IVF Not Given Q12HR SANDY - Exam General Appearance: awake alert General - other findings: mild distress Neck: no JVD Heart: RRR, no murmur, no gallops, no rubs Respiratory: CTAB, no wheezes, no rales, no ronchi Respiratory - other findings: with exception of left lower field, inspiratory crackles, worse Gastrointestinal: soft, non-tender, non-distended, normal bowel sounds, no bruit Extremities: no edema Neurological: cranial nerve grossly intact Psychiatric: normal affect, normal behavior, A&O x 3 Hosp A/P (1) Streptococcus pneumoniae Status: Acute (2) Bacteremia due to Streptococcus pneumoniae Code(s): R78.81 - BACTEREMIA; B95.3 - STREPTOCOCCUS PNEUMONIAE CAUSING DISEASES CLASSD ELSWHR Status: Acute - Plan -HD stable; qSOFA 0/3 -BCx growing strep pneum in two sets -likely source pulmonary; RCx contaminated -repeat BCx NTD -continue vancomycin, continue ceftriaxone for gram negative coverage -continue IVF
[2019-10-02] MEDS: guaiFENesin/Codeine Phosphate 200 mg/20 mg 10 ml UD Cup PO PRN (23:25)
[2019-10-03] MEDS: Vancomycin HCl 1 GM in Premix Bag 1 BAG IVPB SCH (00:52)
[2019-10-03] MEDS: Acetaminophen 325 MG TAB PO PRN ×2 (05:11→09:39)
[2019-10-03] MEDS: Enoxaparin Sodium 40 MG/0.4 ML SYRINGE SC SCH (09:36)
[2019-10-03] MEDS: Senokot S 8.6-50 MG TAB PO SCH (09:40)
[2019-10-03] MEDS: Famotidine 20 MG TAB PO SCH (09:40)
[2019-10-03] MEDS: guaiFENesin/Codeine Phosphate 200 mg/20 mg 10 ml UD Cup PO PRN (09:42)
[2019-10-03 15:05] VITALS: BP 103/57; TEMP 97.8
[2019-10-03] MEDS: Sodium Chloride 0.9% 1,000 ML IV SCH (15:56)
--- NOTE | 2019-10-04 02:45 | PQF ---
[employer] Electronic Security Specialist Crystal Reports Winform Viewer TORI GRAVES MAGI, OLIVIA [id number] [facility] CenterB[facility]27 [id number] CLINICAL DOCUMENTATION CLARIFICATION FORM: POST DISCHARGE Addendum to original discharge summary date: ____ Late entry note date: __ DATE: 10/04/19 ATTN: Olivia Neville Please exercise your independent, professional judgment in responding to the clarification form. Clinical indicators are provided on the bottom of this form for your review Can you please further clarify the diagnosis of the patient? Please check appropriate box(es): [ ] Sepsis due to: (Pna, UTI, gangrenous gall bladder, etc.) [ x ] Localized infection without sepsis [ ] Other diagnosis [ ] Unable to determine In addition, please specify: Present on Admission (POA): [ x ] Yes [ ] No [ ] Unable to determine For continuity of documentation, please document condition throughout progress notes and discharge summary. Thank You. CLINICAL INDICATORS - SIGNS / SYMPTOMS / LABS ED Provider pg.1- Report fever H and P pg.1- runny nose and coughing as well as fever H and P pg.2- VS: BP 104/64, Heart rate 96, Respiratory of 18, Temp was 99 Hospitalist PN pg.4- Streptococcus pneumoniae Hospitalist PN pg.4- Bacteremia due to Streptococcus pneumoniae Hospitalist PN pg.4- BC, growing strep pneu in two sets Hospitalist PN pg.4 likely source pulmonary; Rcx contaminated RISK FACTORS CLL- ED Provider pg.1 Pneumonia- H and P pg.3 Bacteremia- Hospitalist PN pg.4 74 years old- H and P pg.1 TREATMENTS: Chest X ray 09/30 Chest Thorax CTA 09/30 IV Fluids- MAR IV antibiotics- MAR Blood culture- Microbiology (This form is maintained as a part of the permanent medical record) 2014 [employer] All Rights Reserved [email or web address]
--- NOTE | 2019-10-04 10:11 | DIS ---
DATE OF ADMISSION: 09/30/2019 DATE OF DISCHARGE: 10/03/2019 HOSPITAL COURSE: Mr. Modi is a 74-year-old male with a medical history of CLL, abdominal aortic aneurysm, and coronary artery disease, presented with rhinorrhea, cough and fever for the past week. He was diagnosed with Streptococcus pneumonia and bacteremia. He was treated for about a week prior to discharge and was transitioned to oral antibiotics based on culture susceptibilities. On the day of discharge, he was feeling close to baseline, was walking without any issues, and cough has improved. He was discharged home hemodynamically stable. PHYSICAL EXAMINATION: VITAL SIGNS: On the day of discharge, vitals were unremarkable. GENERAL APPEARANCE: Alert, awake, and oriented x3. NECK: No JVD. HEART: Regular rate and rhythm. No murmurs, no gallops, no rubs. RESPIRATORY: Clear to auscultation bilaterally with no wheezes, no rales, no rhonchi. Left lower extremities had mild expiratory crackles, which was much improved compared to two days prior to discharge. GASTROINTESTINAL: Soft, nontender, and nondistended. Normal bowel sounds. No bruit. EXTREMITIES: No edema. NEUROLOGICAL: Cranial nerves grossly intact. PSYCHIATRIC: Normal affect. Normal behavior. Alert and oriented x3. ASSESSMENT AND PLAN: Mr. Modi is a 74-year-old male, who presented with Streptococcus pneumoniae, bacteremia and pneumonia. He was treated with antibiotics for several days and then transitioned to oral antibiotics based on culture susceptibilities to complete treatment for a total of 14 days. He was also prescribed cough syrup with which he was educated to use only during the nights in order to allow him to sleep. Otherwise, allow expectoration to facilitate healing of the lungs. He was discharged home with followup appointments with his primary care physician within three days. Job ID: [id number]
== END 2019-10-03 16:52 | disposition home or self-care (01) | DRG 194 ==
LOC: ERS 15:00 → T4-B 20:38
PROVIDERS: ADMIT Emergency Medicine; ATTEND Internal Medicine
DX: J13 Pneumonia due to Streptococcus pneumoniae (principal); C91.10 Chronic lymphocytic leukemia of B-cell type not having achieved remission; E44.1 Mild protein-calorie malnutrition; R78.81 Bacteremia; E78.5 Hyperlipidemia, unspecified; E78.00 Pure hypercholesterolemia, unspecified; Z88.5 Allergy status to narcotic agent; Z79.899 Other long term (current) drug therapy; Z87.891 Personal history of nicotine dependence; Z68.23 Body mass index [BMI] 23.0-23.9, adult
CPT/HCPCS: 36415; 71045; 71275; 80048; 80053; 82550; 83735; 83880; 84484; 85025; 87040; 87070; 87077; 87149; 87186; 87205; 87804; 93005; 94640; 94760; 96365; 96366; 96367; J0456; J0696; J1650; J3370; J3490; J7620; Q9967

== ENCOUNTER 2019-10-20 20:01 | Emergency (ER) | payer MEDICARE ==
[2019-10-20] MEDS ORDERED: Albuterol Sulfate 2.5 mg/3 ml Neb ONE (21:02)
[2019-10-20 21:09] LABS: Hemoglobin 12.7 g/dL (14.0-18.0); Mean Corpuscular HGB CONC 34.3 g/dL (32.0-36.0); Mean Corpuscular Hemoglobin 31.8 pg (27.0-31.0); Mean Corpuscular Volume 92.7 fL (78.0-98.0); Platelet Count 148 thou/uL (130-400); RBC Distribution Width 12.3 % (11.5-14.5); Red Blood Cell (RBC) Count 4.01 mill/uL (4.70-6.10); White Blood Cell (WBC) Count 9.5 thou/uL (4.8-10.8)
--- NOTE | 2019-10-20 21:17 | RAD ---
Chest AP view INDICATION: Cough and concern for pneumonia COMPARISON: September 30, 2019 FINDINGS: Lungs: There is persistent elevation the right hemidiaphragm. Chronic lung changes are similar appea ring. Cardiac silhouette: The cardiomediastinal silhouette appears within normal limits. Pulmonary vasculature: Normal Pleural spaces: No pleural effusion or pneumothorax is demonstrated. Upper abdomen: No abnormality seen. Osseous structures: No acute osseous abnormality. Additional findings: None. IMPRESSION: No acute cardiopulmonary abnormality.
[2019-10-20 21:27] LABS: ALT (SGPT) 8 U/L (8-55); AST (SGOT) 17 U/L (5-34); Alkaline Phosphatase 87 U/L (40-110); Anion Gap 14 mmol/L (10-20); BUN (Urea Nitrogen) 22 mg/dL (8.4-25.7); Bilirubin, Total 0.4 mg/dL (0.2-1.2); Calc. Creatinine Clearance 0 mL/min (70-130); Calcium 9.3 mg/dL (7.8-10.44); Carbon Dioxide 26 mmol/L (23-31); Chloride 101 mmol/L (98-107); Estimated GFR-MDRD 75; Glucose 118 mg/dL (83-110); Potassium 4.3 mmol/L (3.5-5.1); Sodium 137 mmol/L (136-145)
[2019-10-20 21:30] LABS: Eosinophils 1 % (0-10); Hypochromia SLIGHT = 6-15 cells (100X) (0-5/hpf); Lymphocytes 39 % (21-51); MDiff Complete? YES; Monocytes 10 % (0-10); Neutrophil 38 % (42-75); Platelet Morphology Comment Appears Adequate; Reactive Lymphocytes 12 % (0-10)
== END 2019-10-20 23:45 | disposition home or self-care (01) ==
LOC: ERS 20:01
DX: R05 Cough (principal); R06.00 Dyspnea, unspecified; I95.9 Hypotension, unspecified; C95.90 Leukemia, unspecified not having achieved remission
CPT/HCPCS: 36415; 71045; 80053; 84484; 85025; 87804; 93005; 94640; J7611

== ENCOUNTER 2019-12-27 09:14 | Outpatient (CLI) | payer MEDICARE ==
--- NOTE | 2019-12-27 13:05 | RAD ---
TWO VIEW CHEST: HISTORY: Dyspnea. COMPARISON: 10/20/2019. FINDINGS: Elevation of the right hemidiaphragm again noted, stable. The lungs appear clear of infiltrate. Hea rt and mediastinum unremarkable. Vasculature normal. Osseous structures unremarkable with mild dege nerative changes in the spine. IMPRESSION: No acute process identified. POS: AGW
== END 2019-12-27 09:15 | disposition home or self-care (01) ==
LOC: RAD 09:14
PROVIDERS: ATTEND Internal Medicine Critical Care Medicine
DX: R06.00 Dyspnea, unspecified (principal)
CPT/HCPCS: 71046

== ENCOUNTER 2020-04-25 08:10 | Inpatient (IN) | payer MEDICARE, OTHER ==
[2020-04-25] MEDS ORDERED: Acetaminophen 325 MG TAB ONE (08:39)
[2020-04-25] MEDS ORDERED: cefTRIAXone\\ROCEPHIN 2 GM VIAL ONE (08:39)
[2020-04-25] MEDS ORDERED: Azithromycin 500 MG VIAL ONE (08:39)
[2020-04-25 09:25] LABS: ALT (SGPT) 11 U/L (8-55); AST (SGOT) 20 U/L (5-34); Albumin 4.2 g/dL (3.4-4.8); Alkaline Phosphatase 94 U/L (40-110); Anion Gap 12 mmol/L (10-20); BUN (Urea Nitrogen) 18 mg/dL (8.4-25.7); Bilirubin, Total 0.6 mg/dL (0.2-1.2); Calc. Creatinine Clearance 0 mL/min (70-130); Calcium 8.7 mg/dL (7.8-10.44); Carbon Dioxide 21 mmol/L (23-31); Chloride 103 mmol/L (98-107); Estimated GFR-MDRD 78; Globulin 2.5 g/dL (2.4-3.5); Glucose 113 mg/dL (83-110); Potassium 4.4 mmol/L (3.5-5.1); Protein, Total 6.7 g/dL (5.8-8.1); Sodium 132 mmol/L (136-145)
[2020-04-25 09:27] LABS: #Basophils 0.1 thou/uL (0.0-0.2); #Eosinphils 0.1 thou/uL (0.0-0.7); #Lymphocytes 3.7 thou/uL (1.20-3.40); #Monocytes 0.6 thou/uL (0.11-0.59); #Neutrophils 8.8 thou/uL (1.40-6.50); %Basophils 0.4 % (0.0-1.0); %Eosinophils 0.5 % (0.0-10.0); %Monocytes 4.7 % (0.0-10.0); %Neutrophils 66.4 % (42.0-75.0); Hemoglobin 13.8 g/dL (14.0-18.0); MDiff Complete? YES; Mean Corpuscular Hemoglobin 31.3 pg (27.0-31.0); Mean Corpuscular Volume 94.7 fL (78.0-98.0); Mean Platelet Volume 8.1 fL (7.4-10.4); Platelet Count 107 thou/uL (130-400); Platelet Morphology Comment Appears Decreased; RBC Distribution Width 12.7 % (11.5-14.5); White Blood Cell (WBC) Count 13.3 thou/uL (4.8-10.8)
[2020-04-25 10:15] LABS: SARS-CoV-2 NAA Rapid Test Not Detected (NotDetected)
--- NOTE | 2020-04-25 10:33 | RAD ---
PORTABLE CHEST: Date: 04/25/2020 INDICATION: Cough. COMPARISON: 10/20/2019. FINDINGS: The apices are not included on this study. Visualized lungs appear clear of infiltrate. Elevated right hemidiaphragm is stable. Heart size papo l and stable. IMPRESSION: No acute process identified. The apices are not included on this study. POS: AGW
--- NOTE | 2020-04-25 10:49 | CT ---
CTA CHEST WITH CONTRAST: Date: 04/25/2020 Axial tomograms obtained following a pulmonary angio protocol with multiplanar reconstruction and 3D postprocessing. INDICATION: Chest pain. Cough and fever. FINDINGS: Pulmonary arteries show adequate opacification. There is no evidence of pulmonary embolus seen to the segmental level. Thoracic aorta shows atherosclerotic change. No dissection. Review of the lungs show patchy infiltrative changes which have a ground-glass type appearance in the left upper lobe. There are more confluent infiltrative changes in the left lower lobe posteriorly. There is a focal nodular density in the superior right lower lobe near the fissure measuring 12.0 mm. This was not present on the prior CT of 09/30/2018 and probably represents a focal area of nodular i nfiltrate. There is also some hazy ground-glass infiltrate and/or atelectasis in the posterior right lower lobe. Images through the upper abdomen show splenomegaly which appears to be a stable finding. Atherosclero tic changes in the aorta again noted. Mild ectasia of the abdominal aorta. IMPRESSION: 1. No evidence of pulmonary embolus. 2. There are patchy infiltrates seen bilaterally, slightly more extensive on the left. COVID pneumon ia should be excluded. 3. Splenomegaly again noted, which is stable in appearance. POS: AGW
[2020-04-25] MEDS: Acetaminophen 325 MG TAB PO PRN (13:18)
--- NOTE | 2020-04-25 14:20 | HP ---
PRIMARY CARE PHYSICIAN: Dr. Sandoval. CHIEF COMPLAINT: Shortness of breath, fever, and cough. HISTORY OF PRESENT ILLNESS: Mr. Modi is a 74-year-old male with a past medical history pertinent for chronic lymphocytic leukemia, hypertension, and two AAAs. He reports that he has had a chronic cough for the last 8 months, but worse in the last month. He reports that he had some chills this morning and temperature of 100. He reports that he has had an increased cough with some pleuritic chest pain and coughing with deep breathing. He is coughing up some white sputum. He was admitted in September for similar symptoms and was diagnosed at that time with Strep pneumoniae and was admitted and had rounds of IV antibiotics. He reports that his blood count levels have been low with a CLL and he has had to go in monthly for transfusions. He reports that he feels like he cannot fight off infections very well. In the emergency room, his white blood cell count was 13.3, hemoglobin 13.8, hematocrit 41.6, and platelet count was 107. Chemistry; sodium 132, carbon dioxide 21, glucose 113. BNP 94.5. He was negative for rapid COVID test. He did have a chest x-ray and a CTA of the chest, which showed no evidence of pulmonary emboli, but patchy infiltrates bilaterally, more extensive on the left, and he has some splenomegaly, which was seen on the last and is stable. He received Rocephin and azithromycin in the emergency room. At the time of exam, he was feeling better, does have a cough, but was not hypoxic. He is going to be admitted to the medical floor for further management. REVIEW OF SYSTEMS: The patient reports fever, reports cough, reports shortness of breath, reports chills. All other systems reviewed and are negative unless mentioned above or in the HPI. PAST MEDICAL HISTORY: Significant for CLL, AAA with surgery, and Strep pneumoniae in September, which he was admitted for and treated. PAST SURGICAL HISTORY: Sinus surgery and nasal passages as well as carotid surgery and back surgery. He had two AAA repairs at the same time 5 years ago at [facility] in [place]. He has had multiple lower back surgeries. SOCIAL HISTORY: He is a former smoker. He has smoked up until about 2 years ago. Denies any alcohol use. He is and full code. ALLERGIES: INCLUDE MORPHINE. CURRENT MEDICATIONS: 1. Celebrex 200 mg p.o. b.i.d. 2. Singulair 10 mg p.o. once a day. PHYSICAL EXAMINATION: VITAL SIGNS: Blood pressure 117/91, pulse is 92, respiratory rate is 23, temperature is 100.2, pO2 sats are 95% on room air. CONSTITUTIONAL: He is alert and oriented, in no acute distress. HEENT: Head is atraumatic, normocephalic. Eyes, pupils are equally round and reactive to light. Extraocular muscles are intact. ENT, mouth exam is normal. Mucous membranes are moist. He does have some postnasal drip. NECK: Normal range of motion. Trachea is midline. CHEST: He does have some mild respiratory distress, rhonchi at bilateral lower lobes. Chest expansion is equal. CARDIOVASCULAR: He is slightly tachycardic. Regular rhythm. Heart sounds are normal. ABDOMEN: Nontender. Bowel sounds are heard. BACK: Normal range of motion. No tenderness. EXTREMITIES: Upper extremity, normal range of motion. Motor strength is normal. Radial pulses are normal. Lower extremity, normal range of motion. Motor strength is normal. Pedal pulses are normal. There is no edema noted. NEURO: The patient is oriented to person, place, and time. Speech is normal. SKIN: Warm and dry, normal in color. IMAGING STUDIES: EKG in the emergency room shows sinus tach, beats per minute . ST segments are normal. T-waves are normal. There are Q-waves in V1 and V2. ASSESSMENT AND PLAN: 1. Pneumonia. The patient was given Rocephin and azithromycin in the emergency room. We will switch that up to cefepime 2 g q.8h and azithromycin q.24h. Normal saline at 75 mL/hr, DuoNeb q.6 scheduled and then q.4 as needed. We will continue his Singulair. The patient states that he sees Dr. Maravilla as an outpatient, so we will have a courtesy consult. Blood cultures have been drawn. 2. History of some chronic back pain. We will continue his Celebrex. 3. History of chronic lymphocytic leukemia. This appears stable at this time. We will continue to monitor. Repeat CBC in a.m. Case discussed with Dr. Fernandez, who agrees with plan. Hospital course dependent on clinical findings. Job ID: [id number]
[2020-04-25 14:27] LABS: INR-International Normal Ratio 1.1; PTT 38.6 sec (22.9-36.1); Prothrombin Time 14.6 sec (12.0-14.7)
[2020-04-25] MEDS ORDERED: Iopamidol-370 76% 500 ML 1 ML ONE (14:36)
[2020-04-25 14:57] VITALS: BMI 24.0
[2020-04-25] MEDS ORDERED: Electrolyte Replacement Protoc 1 EACH EACH IVPB PRN (15:24)
[2020-04-25] MEDS ORDERED: Cyclobenzaprine 10 MG TAB PO PRN (15:24)
[2020-04-25] MEDS ORDERED: Electrolyte Replacement Protocol FS PRN (15:45)
[2020-04-25] MEDS: Mometasone 100 MCG/PUFF (1 INHALER) INH SCH (18:57)
[2020-04-25] MEDS ORDERED: Cefepime 1 GM in Sodium Chloride 0.9% 100 ML IVPB SCH (21:00)
[2020-04-25] MEDS: Famotidine 20 MG TAB PO SCH (21:13)
[2020-04-25] MEDS: guaiFENesin ER 600 MG TAB PO SCH (21:13)
[2020-04-25] MEDS: Montelukast Sodium 10 mg Tablet PO SCH (21:13)
[2020-04-25] MEDS: CeleCOXIB 100 MG CAP PO SCH (21:13)
[2020-04-25] MEDS: Cefepime 2 GM in Sodium Chloride 0.9% 100 ML IVPB SCH (21:14)
[2020-04-25] MEDS: Saccharomyces boulardii 250 MG CAP PO SCH (21:14)
--- NOTE | 2020-04-25 22:11 | PDOC.BPN ---
- Brief Progress Note Encounter Date: 04/25/20 Encounter Time: 15:30 Patient is a 74-year-old man with chronic lymphocytic leukemia followed by Dr. Holland presented to the hospital with shortness of breath and fever with cough. Vital signs were reviewed. On examination patient has bilateral rhonchi with wheezing. His workup in the emergency room was consistent with bilateral pneumonia. COVID testing was negative. I assessed the patient on admission and agree with the assessment and plan outlined by the nurse practitioner. Patient has been started on cefepime with azithromycin for pneumonia. I reviewed the labs and imaging. Pulmonary will be consulted. A.m. labs. Home medication is restarted. Nebulizer treatment.
[2020-04-26] MEDS: Mometasone 100 MCG/PUFF (1 INHALER) INH SCH ×2 (06:41→19:05)
[2020-04-26 07:47] LABS: Anion Gap 11 mmol/L (10-20); BUN (Urea Nitrogen) 12 mg/dL (8.4-25.7); Calc. Creatinine Clearance 94 mL/min (70-130); Calcium 8.7 mg/dL (7.8-10.44); Carbon Dioxide 24 mmol/L (23-31); Chloride 103 mmol/L (98-107); Estimated GFR-MDRD 87; Glucose 103 mg/dL (83-110); Potassium 4.1 mmol/L (3.5-5.1); Sodium 134 mmol/L (136-145)
[2020-04-26 08:23] LABS: #Eosinphils 0.2 thou/uL (0.0-0.7); #Lymphocytes 2.7 thou/uL (1.20-3.40); #Monocytes 0.3 thou/uL (0.11-0.59); #Neutrophils 3.5 thou/uL (1.40-6.50); %Basophils 0.1 % (0.0-1.0); %Eosinophils 2.6 % (0.0-10.0); %Lymphocytes 40.6 % (21.0-51.0); %Monocytes 5.1 % (0.0-10.0); %Neutrophils 51.7 % (42.0-75.0); Hemoglobin 12.3 g/dL (14.0-18.0); Mean Corpuscular HGB CONC 33.9 g/dL (32.0-36.0); Mean Corpuscular Hemoglobin 32.5 pg (27.0-31.0); Mean Corpuscular Volume 95.8 fL (78.0-98.0); Mean Platelet Volume 8.3 fL (7.4-10.4); Platelet Count 82 thou/uL (130-400); RBC Distribution Width 12.8 % (11.5-14.5); Red Blood Cell (RBC) Count 3.79 mill/uL (4.70-6.10); White Blood Cell (WBC) Count 6.7 thou/uL (4.8-10.8)
[2020-04-26 08:24] LABS: Anisocytosis SLIGHT = 6-15 cells (100X) (0-5/hpf); MDiff Complete? YES; Platelet Morphology Comment Appears Decreased
[2020-04-26] MEDS: guaiFENesin ER 600 MG TAB PO SCH ×2 (08:46→20:49)
[2020-04-26] MEDS: Famotidine 20 MG TAB PO SCH ×2 (08:46→20:48)
[2020-04-26] MEDS: Cefepime 2 GM in Sodium Chloride 0.9% 100 ML IVPB SCH ×2 (08:46→20:49)
[2020-04-26] MEDS: CeleCOXIB 100 MG CAP PO SCH (08:47)
[2020-04-26] MEDS ORDERED: Non-Formulary Item 1 EACH (Fluticasone/Umeclidin/Vilanter [Trelegy Ellipta 100-62.5-25] 1 IH SCH (09:00)
[2020-04-26] MEDS ORDERED: Electrolyte Replacement Protoc 1 EACH EACH FS PRN (09:28)
[2020-04-26] MEDS ORDERED: Magnesium 2 GM/50 ML 2 GM in Premix Bag 1 BAG IVPB SCH (09:30)
[2020-04-26] MEDS: Azithromycin 500 MG in Sodium Chloride 0.9% 250 ML 250 ML IVPB SCH (10:52)
--- NOTE | 2020-04-26 17:22 | PDOC.HOSPP ---
- Subjective Encounter Date: 04/26/20 Encounter Time: 15:30 Subjective: Patient seen and examined for pneumonia with COPD exacerbation. Getting short of breath on [id number] exertion. Intermittent coughing spells with some production. No fever or chills reported. - Objective Vital Signs & Weight: Vital Signs (12 hours) Temp Pulse Resp BP Pulse Ox 04/26/20 15:50 97.9 F 87 16 143/79 H 97 04/26/20 13:45 75 16 95 04/26/20 11:26 98.5 F 75 17 118/68 95 04/26/20 07:50 98.4 F 62 17 122/71 96 04/26/20 06:39 83 16 96 Weight Weight 192 lb I&O: 04/25/20 04/26/20 04/27/20 06:59 06:59 06:59 Intake Total 490 600 Balance 490 600 Result Diagrams: 04/26/20 06:43 04/26/20 06:43 Radiology Reviewed by me: Yes (CT chestbilateral pneumonia) Hospitalist ROS - Review of Systems Constitutional: reports: weakness. denies: fever, chills, sweats, malaise, other Cardiovascular: denies: chest pain, palpitations, orthopnea, paroxysmal noc. dyspnea, edema, light headedness, other - Medication Medications: Active Medications Generic Name Dose Route Start Last Admin Trade Name Freq PRN Reason Stop Dose Admin Acetaminophen 650 mg 04/25/20 11:36 04/25/20 13:18 Tylenol PO 650 mg Q4H PRN Administration Headache/Fever/Mild Pain (1-3) Albuterol/Ipratropium 3 ml 04/25/20 13:00 04/26/20 13:45 Duoneb NEB 3 ml [id number] SANDY Administration Famotidine 20 mg 04/25/20 21:00 04/26/20 08:46 Pepcid PO 20 mg BID SANDY Administration Guaifenesin 600 mg 04/25/20 21:00 04/26/20 08:46 Mucinex PO 600 mg Q12HR SANDY Administration Azithromycin 500 mg/ Sodium 250 mls @ 250 mls/hr 04/26/20 09:00 04/26/20 10: 52 Chloride IVPB 250 mls Q24HR SANDY Administration Cefepime HCl 2 gm/ Sodium 100 mls @ 200 mls/hr 04/25/20 21:00 04/26/20 08:46 Chloride IVPB 100 mls Q12HR SANDY Administration Mometasone Furoate 100 mcg 04/25/20 21:00 04/26/20 06:41 Asmanex Hfa 100 Mcg INH 2 puff BID SANDY Administration Montelukast Sodium 10 mg 04/25/20 21:00 04/25/20 21:13 Singulair PO 10 mg HS SANDY Administration Saccharomyces Boulardii 250 mg 04/25/20 21:00 04/25/20 21:14 Florastor PO 250 mg HS ASNDY Administration Sodium Chloride 10 ml 04/25/20 11:36 04/25/20 13:18 Flush - Normal Saline IVF 10 ml PRN PRN Administration Saline Flush - Exam General Appearance: NAD Neck: supple, symmetric, no JVD, no thyromegaly Heart: RRR, no gallops, no rubs, normal peripheral pulses Respiratory: no wheezes, normal chest expansion, rales, rhonchi Gastrointestinal: soft, non-tender, non-distended, normal bowel sounds Extremities: no cyanosis, no clubbing, no edema Extremities - other findings: No calf tenderness Neurological: no new deficit Psychiatric: normal affect, A&O x 3 Hosp A/P (1) Sepsis due to pneumonia Code(s): J18.9 - PNEUMONIA, UNSPECIFIED ORGANISM; A41.9 - SEPSIS, UNSPECIFIED ORGANISM Status: Acute (2) Hyponatremia Code(s): E87.1 - HYPO-OSMOLALITY AND HYPONATREMIA Status: Acute (3) Chronic low back pain Code(s): M54.5 - LOW BACK PAIN; G89.29 - OTHER CHRONIC PAIN Status: Chronic (4) Hypomagnesemia Code(s): E83.42 - HYPOMAGNESEMIA Status: Acute (5) Chronic lymphoblastic leukemia Code(s): C91.Z0 - OTHER LYMPHOID LEUKEMIA NOT HAVING ACHIEVED REMISSION Status : Chronic (6) S/P AAA (abdominal aortic aneurysm) repair Code(s): Z98.890 - OTHER SPECIFIED POSTPROCEDURAL STATES; Z86.79 - PERSONAL HISTORY OF OTHER DISEASES OF THE CIRCULATORY SYSTEM Status: Chronic (7) CKD (chronic kidney disease) stage 2, GFR 60-89 ml/min Code(s): N18.2 - CHRONIC KIDNEY DISEASE, STAGE 2 (MILD) Status: Chronic - Plan 04/26 Continue IV cefepime with azithromycin. Magnesium replaced. Continue steroid inhaler with Singulair. Continue nebulizer treatment. Consult pulmonary Dr. Maravilla in a.m. Will discuss with Dr. Holland tomorrow. Continue other medications as above
[2020-04-26] MEDS: Saccharomyces boulardii 250 MG CAP PO SCH (20:48)
[2020-04-26] MEDS: Montelukast Sodium 10 mg Tablet PO SCH (20:49)
[2020-04-27 05:23] LABS: #Eosinphils 0.2 thou/uL (0.0-0.7); #Lymphocytes 2.8 thou/uL (1.20-3.40); #Monocytes 0.5 thou/uL (0.11-0.59); #Neutrophils 3.6 thou/uL (1.40-6.50); %Basophils 0.6 % (0.0-1.0); %Eosinophils 3.1 % (0.0-10.0); %Lymphocytes 39.3 % (21.0-51.0); %Neutrophils 50.1 % (42.0-75.0); Hemoglobin 12.3 g/dL (14.0-18.0); Mean Corpuscular HGB CONC 34.1 g/dL (32.0-36.0); Mean Corpuscular Volume 93.9 fL (78.0-98.0); Platelet Count 95 thou/uL (130-400); RBC Distribution Width 12.6 % (11.5-14.5); Red Blood Cell (RBC) Count 3.84 mill/uL (4.70-6.10); White Blood Cell (WBC) Count 7.1 thou/uL (4.8-10.8)
[2020-04-27 05:36] LABS: ALT (SGPT) 10 U/L (8-55); AST (SGOT) 15 U/L (5-34); Albumin 3.6 g/dL (3.4-4.8); Alkaline Phosphatase 75 U/L (40-110); Anion Gap 11 mmol/L (10-20); BUN (Urea Nitrogen) 12 mg/dL (8.4-25.7); Bilirubin, Total 0.4 mg/dL (0.2-1.2); Calc. Creatinine Clearance 96 mL/min (70-130); Calcium 8.6 mg/dL (7.8-10.44); Carbon Dioxide 23 mmol/L (23-31); Chloride 106 mmol/L (98-107); Estimated GFR-MDRD 90; Globulin 2.4 g/dL (2.4-3.5); Glucose 107 mg/dL (83-110); Magnesium 2.2 mg/dL (1.6-2.6); Potassium 4.3 mmol/L (3.5-5.1); Sodium 136 mmol/L (136-145)
[2020-04-27] MEDS: Cefepime 2 GM in Sodium Chloride 0.9% 100 ML IVPB SCH ×2 (08:20→20:18)
[2020-04-27] MEDS: Acetaminophen 325 MG TAB PO PRN (08:26)
[2020-04-27] MEDS: Mometasone 100 MCG/PUFF (1 INHALER) INH SCH (08:34)
[2020-04-27] MEDS: guaiFENesin ER 600 MG TAB PO SCH ×2 (09:45→20:18)
[2020-04-27] MEDS: Azithromycin 500 MG in Sodium Chloride 0.9% 250 ML 250 ML IVPB SCH (09:45)
[2020-04-27] MEDS: Famotidine 20 MG TAB PO SCH ×2 (09:45→20:18)
[2020-04-27] MEDS: CeleCOXIB 100 MG CAP PO PRN ×2 (09:51→20:26)
--- NOTE | 2020-04-27 15:14 | PDOC.HOSPP ---
- Subjective Encounter Date: 04/27/20 Encounter Time: 10:30 Subjective: Patient seen and examined for sepsis due to pneumonia. Feels generally weak and fatigued. Gets short of breath on [id number] exertion. Continues to have intermittent coughing spells. - Objective Vital Signs & Weight: Vital Signs (12 hours) Temp Pulse Resp BP BP Pulse Ox 04/27/20 13:10 78 12 04/27/20 11:20 97.8 F 78 18 120/74 95 04/27/20 08:32 73 16 96 04/27/20 08:00 99 04/27/20 07:48 98.2 F 73 20 137/76 93 L 04/27/20 04:39 98.8 F 90 20 116/76 98 Weight Weight 192 lb I&O: 04/26/20 04/27/20 04/28/20 06:59 06:59 06:59 Intake Total 490 2290 Output Total 800 Balance 490 1490 Result Diagrams: 04/27/20 04:52 04/27/20 04:52 Hospitalist ROS - Review of Systems Constitutional: reports: weakness. denies: fever, chills, sweats, malaise, other Cardiovascular: denies: chest pain, palpitations, orthopnea, paroxysmal noc. dyspnea, edema, light headedness, other - Medication Medications: Active Medications Generic Name Dose Route Start Last Admin Trade Name Freq PRN Reason Stop Dose Admin Acetaminophen 650 mg 04/25/20 11:36 04/27/20 08:26 Tylenol PO 650 mg Q4H PRN Administration Headache/Fever/Mild Pain (1-3) Albuterol/Ipratropium 3 ml 04/25/20 13:00 04/27/20 13:10 Duoneb NEB 3 ml [id number] SANDY Administration Celecoxib 200 mg 04/26/20 14:28 04/27/20 09:51 Celebrex PO 200 mg BID PRN Administration Breakthrough Pain Famotidine 20 mg 04/25/20 21:00 04/27/20 09:45 Pepcid PO 20 mg BID SANDY Administration Guaifenesin 600 mg 04/25/20 21:00 04/27/20 09:45 Mucinex PO 600 mg Q12HR SANDY Administration Azithromycin 500 mg/ Sodium 250 mls @ 250 mls/hr 04/26/20 09:00 04/27/20 09: 45 Chloride IVPB 250 mls Q24HR SANDY Administration Cefepime HCl 2 gm/ Sodium 100 mls @ 200 mls/hr 04/25/20 21:00 04/27/20 08:20 Chloride IVPB 100 mls Q12HR SANDY Administration Montelukast Sodium 10 mg 04/25/20 21:00 04/26/20 20:49 Singulair PO 10 mg HS SANDY Administration Saccharomyces Boulardii 250 mg 04/25/20 21:00 04/26/20 20:48 Florastor PO 250 mg HS SANDY Administration Sodium Chloride 10 ml 04/25/20 11:36 04/25/20 13:18 Flush - Normal Saline IVF 10 ml PRN PRN Administration Saline Flush - Exam General Appearance: ill appearing Neck: supple, no JVD Heart: RRR, no gallops Respiratory: rales, rhonchi Gastrointestinal: non-tender, non-distended, normal bowel sounds Extremities: no cyanosis, no clubbing Neurological: no new deficit Hosp A/P (1) Sepsis due to pneumonia Code(s): J18.9 - PNEUMONIA, UNSPECIFIED ORGANISM; A41.9 - SEPSIS, UNSPECIFIED ORGANISM Status: Acute (2) Hyponatremia Code(s): E87.1 - HYPO-OSMOLALITY AND HYPONATREMIA Status: Acute (3) Chronic low back pain Code(s): M54.5 - LOW BACK PAIN; G89.29 - OTHER CHRONIC PAIN Status: Chronic (4) Hypomagnesemia Code(s): E83.42 - HYPOMAGNESEMIA Status: Acute (5) Chronic lymphoblastic leukemia Code(s): C91.Z0 - OTHER LYMPHOID LEUKEMIA NOT HAVING ACHIEVED REMISSION Status : Chronic (6) S/P AAA (abdominal aortic aneurysm) repair Code(s): Z98.890 - OTHER SPECIFIED POSTPROCEDURAL STATES; Z86.79 - PERSONAL HISTORY OF OTHER DISEASES OF THE CIRCULATORY SYSTEM Status: Chronic (7) CKD (chronic kidney disease) stage 2, GFR 60-89 ml/min Code(s): N18.2 - CHRONIC KIDNEY DISEASE, STAGE 2 (MILD) Status: Chronic (8) Thrombocytopenia Code(s): D69.6 - THROMBOCYTOPENIA, UNSPECIFIED Status: Chronic - Plan DVT proph w/SCDs 04/27 Pulmonary input appreciated. Started on prednisone along with inhaled steroids with LABA. Continue IV cefepime with azithromycin. Continue nebulizer treatment. I discussed with oncology serviceno new recommendation. Continue other medications as above. A.m. labs. Heparin or Lovenox due to thrombocytopenia. Continue walking program. 04/26 Continue IV cefepime with azithromycin. Magnesium replaced. Continue steroid inhaler with Singulair. Continue nebulizer treatment. Consult pulmonary Dr. Maravilla in a.m. Will discuss with Dr. Holland tomorrow. Continue other medications as above
[2020-04-27] MEDS: Mometasone 200 MCG/Formoterol 5 MCG 120 PUFF INHALER INH SCH (18:14)
[2020-04-27] MEDS: Montelukast Sodium 10 mg Tablet PO SCH (20:18)
[2020-04-27] MEDS: Saccharomyces boulardii 250 MG CAP PO SCH (20:18)
[2020-04-28 06:04] LABS: Hemoglobin 13.1 g/dL (14.0-18.0); Mean Corpuscular HGB CONC 33.3 g/dL (32.0-36.0); Mean Corpuscular Hemoglobin 31.7 pg (27.0-31.0); Mean Corpuscular Volume 95.4 fL (78.0-98.0); Mean Platelet Volume 7.6 fL (7.4-10.4); Platelet Count 107 thou/uL (130-400); RBC Distribution Width 12.5 % (11.5-14.5); Red Blood Cell (RBC) Count 4.12 mill/uL (4.70-6.10); White Blood Cell (WBC) Count 6.2 thou/uL (4.8-10.8)
[2020-04-28 06:14] LABS: Anion Gap 13 mmol/L (10-20); BUN (Urea Nitrogen) 12 mg/dL (8.4-25.7); Calc. Creatinine Clearance 101 mL/min (70-130); Carbon Dioxide 22 mmol/L (23-31); Chloride 104 mmol/L (98-107); Estimated GFR-MDRD Greater than 90; Glucose 99 mg/dL (83-110); Potassium 4.3 mmol/L (3.5-5.1); Sodium 135 mmol/L (136-145)
[2020-04-28 06:15] LABS: Band 2 % (5-11); Eosinophils 3 % (0-10); Lymphocytes 47 % (21-51); MDiff Complete? YES; Monocytes 13 % (0-10); Platelet Morphology Comment Appears Decreased; Reactive Lymphocytes 3 % (0-10)
--- NOTE | 2020-04-28 06:53 | CON ---
DATE OF CONSULTATION: HISTORY OF PRESENT ILLNESS: Luis Modi is a 74-year-old gentleman, who sees Dr. Maravilla in the office, presented to the ER with cough, fever, and shortness of breath of several days duration. He had extensive sinus surgery done. Saw a local ENT and placed on antibiotics. He then had a temperature of 100. Sputum is in color. He is wheezing from time to time. He can barely walk 100 feet without getting markedly short of breath. Former smoker, quit smoking about 10 years ago. His initial CT chest shows left-sided infiltrate, elevated right hemidiaphragm. No masses were seen. PAST MEDICAL HISTORY: CLL, apparently remission; chronic pain; peripheral vascular disease; chronic sinus; COPD. PREVIOUS SURGERIES: Included carpal tunnel, hernia surgery, shoulder surgery, back surgery, carotid surgery, nasal surgery. HOME MEDICATIONS: Include: 1. Singulair 10. 2. Celebrex. 3. Several different inhalers. 4. Trelegy. ALLERGIES: MORPHINE. REVIEW OF SYSTEMS: Otherwise, unremarkable. PHYSICAL EXAMINATION: GENERAL: He is in no acute respiratory distress. VITAL SIGNS: His saturations are 96% on room air, pulse 80, blood pressure , respiratory rate 18. CHEST: Minimal rhonchi. CARDIAC: Normal S1 and S2. No gallops. ABDOMEN: Soft without masses. NEUROLOGIC: Unremarkable. LABORATORY DATA: White count 7000, no left shift. Repeat chest x-ray yesterday showed no acute process. Still elevated right hemidiaphragm. IMPRESSION: Chronic obstructive pulmonary disease exacerbation, bronchitis, left-sided pneumonia, chronic sinus. PLAN: He has adequate antibiotics. I have added p.o. prednisone, neb treatments, supportive care. Hopefully, we can deescalate antibiotics in the next several days. This is a consultation note, 70 minutes, 50% direct patient care. Job ID: [id number]
[2020-04-28] MEDS: Mometasone 200 MCG/Formoterol 5 MCG 120 PUFF INHALER INH SCH ×2 (07:27→19:43)
[2020-04-28] MEDS: Cefepime 2 GM in Sodium Chloride 0.9% 100 ML IVPB SCH (08:35)
[2020-04-28] MEDS: guaiFENesin ER 600 MG TAB PO SCH ×2 (08:36→21:12)
[2020-04-28] MEDS: predniSONE 20 MG TAB PO SCH (08:36)
[2020-04-28] MEDS: CeleCOXIB 100 MG CAP PO PRN (08:36)
[2020-04-28] MEDS: Famotidine 20 MG TAB PO SCH ×2 (08:36→21:12)
[2020-04-28 09:27] LABS: Neutrophil 32 % (42-75)
[2020-04-28] MEDS ORDERED: Doxycycline 100 MG CAP PO SCH (09:30)
--- NOTE | 2020-04-28 09:30 | PRG ---
DATE OF SERVICE: 04/28/2020 SUBJECTIVE: This morning, the patient is awake, alert, responsive, sitting on the side of the bed. OBJECTIVE: VITAL SIGNS: Temperature 99, pulse 62, respirations 16, sats 97% on room air. GENERAL: He is still having some tightness in the chest. His sputum is thick, may be yellowish in nature CHEST: Decreased breath sounds. No wheezing. CARDIAC: Normal S1, S2. ABDOMEN: No masses. LABORATORY DATA: Unremarkable. IMPRESSION: 1. Chronic obstructive pulmonary disease exacerbation. 2. Bronchitis. 3. Bronchiectasis. 4. Peripheral pneumonia. PLAN: P.o. medication. Hopefully if remains stable, he can be discharged home next day or two. Job ID: [id number]
[2020-04-28] MEDS: Azithromycin 500 MG in Sodium Chloride 0.9% 250 ML 250 ML IVPB SCH (10:31)
[2020-04-28] MEDS ORDERED: Senokot 8.6 MG TAB PO PRN (11:32)
[2020-04-28] MEDS ORDERED: Polyethylene Glycol 3350 17 GM Packet PO PRN (11:32)
[2020-04-28] MEDS: Doxycycline 100 MG CAP PO SCH (21:12)
[2020-04-28] MEDS: Senokot S 8.6-50 MG TAB PO SCH (21:12)
[2020-04-28] MEDS: Montelukast Sodium 10 mg Tablet PO SCH (21:12)
[2020-04-28] MEDS: Saccharomyces boulardii 250 MG CAP PO SCH (21:12)
[2020-04-28] MEDS: CeleCOXIB 100 MG CAP PO SCH (21:12)
--- NOTE | 2020-04-28 22:48 | PDOC.HOSPP ---
- Subjective Encounter Date: 04/28/20 Encounter Time: 12:30 Subjective: Patient seen and examined for pneumonia. Feeling slightly better than yesterday. Some expectoration with coughing. Short of breath on mild-to- moderate exertion. - Objective Vital Signs & Weight: Vital Signs (12 hours) Temp Pulse Resp BP Pulse Ox 04/28/20 19:42 84 16 95 04/28/20 19:36 98.0 F 72 16 122/65 97 04/28/20 16:00 98.1 F 65 20 119/57 L 95 04/28/20 12:45 82 16 96 04/28/20 12:05 98.3 F 73 18 138/82 95 Weight Weight 192 lb I&O: 04/27/20 04/28/20 04/29/20 06:59 06:59 06:59 Intake Total 2290 1790 Output Total 800 Balance 1490 1790 Result Diagrams: 04/28/20 05:21 04/28/20 05:21 Hospitalist ROS - Review of Systems Cardiovascular: denies: chest pain, palpitations, orthopnea, paroxysmal noc. dyspnea, edema, light headedness, other Gastrointestinal: denies: nausea, vomiting, abdominal pain, diarrhea, constipation, melena, hematochezia, other - Medication Medications: Active Medications Generic Name Dose Route Start Last Admin Trade Name Freq PRN Reason Stop Dose Admin Acetaminophen 650 mg 04/25/20 11:36 04/27/20 08:26 Tylenol PO 650 mg Q4H PRN Administration Headache/Fever/Mild Pain (1-3) Albuterol/Ipratropium 3 ml 04/25/20 13:00 04/28/20 19:42 Duoneb NEB 3 ml [id number] SANDY Administration Celecoxib 200 mg 04/28/20 21:00 04/28/20 21:12 Celebrex PO 200 mg BID SANDY Administration Doxycycline Hyclate 100 mg 04/28/20 21:00 04/28/20 21:12 Vibramycin PO 05/05/20 21:01 100 mg BID SANDY Administration Famotidine 20 mg 04/25/20 21:00 04/28/20 21:12 Pepcid PO 20 mg BID SANDY Administration Guaifenesin 600 mg 04/25/20 21:00 04/28/20 21:12 Mucinex PO 600 mg Q12HR SANDY Administration Mometasone Furoate/Formoterol Fumar 2 puff 04/27/20 18:30 04/28/20 19:43 Dulera 200 Mcg/5 Mcg Inhaler INH 2 puff BID-RT SANDY Administration Montelukast Sodium 10 mg 04/25/20 21:00 04/28/20 21:12 Singulair PO 10 mg HS SANDY Administration Polyethylene Glycol 17 gm 04/28/20 11:32 04/28/20 16:25 Miralax PO 17 gm DAILYPRN PRN Administration Constipation Prednisone 40 mg 04/28/20 08:00 04/28/20 08:36 Prednisone PO 40 mg QAM-WM SANDY Administration Saccharomyces Boulardii 250 mg 04/25/20 21:00 04/28/20 21:12 Florastor PO 250 mg HS SANDY Administration Senna/Docusate Sodium 1 tab 04/28/20 21:00 04/28/20 21:12 Senokot S PO 1 tab BID SANDY Administration Sodium Chloride 10 ml 04/25/20 11:36 04/28/20 08:37 Flush - Normal Saline IVF 10 ml PRN PRN Administration Saline Flush - Exam General Appearance: awake alert ([employer]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), ill appearing Eye: PERRL, anicteric sclera ([place] there are) ENT: normocephalic atraumatic, no oropharyngeal lesions Neck: supple, no JVD Extremities: no edema Psychiatric: normal affect, A&O x 3 Hosp A/P (1) Sepsis due to pneumonia Code(s): J18.9 - PNEUMONIA, UNSPECIFIED ORGANISM; A41.9 - SEPSIS, UNSPECIFIED ORGANISM Status: Acute (2) Hyponatremia Code(s): E87.1 - HYPO-OSMOLALITY AND HYPONATREMIA Status: Acute (3) Chronic low back pain Code(s): M54.5 - LOW BACK PAIN; G89.29 - OTHER CHRONIC PAIN Status: Chronic (4) Hypomagnesemia Code(s): E83.42 - HYPOMAGNESEMIA Status: Acute (5) Chronic lymphoblastic leukemia Code(s): C91.Z0 - OTHER LYMPHOID LEUKEMIA NOT HAVING ACHIEVED REMISSION Status : Chronic (6) S/P AAA (abdominal aortic aneurysm) repair Code(s): Z98.890 - OTHER SPECIFIED POSTPROCEDURAL STATES; Z86.79 - PERSONAL HISTORY OF OTHER DISEASES OF THE CIRCULATORY SYSTEM Status: Chronic (7) CKD (chronic kidney disease) stage 2, GFR 60-89 ml/min Code(s): N18.2 - CHRONIC KIDNEY DISEASE, STAGE 2 (MILD) Status: Chronic (8) Thrombocytopenia Code(s): D69.6 - THROMBOCYTOPENIA, UNSPECIFIED Status: Chronic - Plan 04/28 Cefepime and azithromycin discontinued. Patient started on doxycycline. Continue prednisone per pulmonary. Continue Dulera. Continue nebulizer treatment every 6 hourly. Continue other medications as above. Platelet count improving discharge in 24 hours if okay with pulmonary 04/27 Pulmonary input appreciated. Started on prednisone along with inhaled steroids with LABA. Continue IV cefepime with azithromycin. Continue nebulizer treatment. I discussed with oncology servic[facility] new recommendation. Continue other medications as above. A.m. labs. Heparin or Lovenox due to thrombocytopenia. Continue walking program. 04/26 Continue IV cefepime with azithromycin. Magnesium replaced. Continue steroid inhaler with Singulair. Continue nebulizer treatment. Consult pulmonary Dr. Maravilla in a.m. Will discuss with Dr. Holland tomorrow. Continue other medications as above
[2020-04-29] MEDS: Mometasone 200 MCG/Formoterol 5 MCG 120 PUFF INHALER INH SCH (06:30)
[2020-04-29] MEDS: guaiFENesin ER 600 MG TAB PO SCH (08:02)
[2020-04-29] MEDS: CeleCOXIB 100 MG CAP PO SCH (08:02)
[2020-04-29] MEDS: Famotidine 20 MG TAB PO SCH (08:03)
[2020-04-29] MEDS: predniSONE 20 MG TAB PO SCH (08:03)
[2020-04-29] MEDS: Doxycycline 100 MG CAP PO SCH (08:04)
[2020-04-29] MEDS: Senokot S 8.6-50 MG TAB PO SCH (08:04)
--- NOTE | 2020-04-29 11:03 | PRG ---
DATE OF SERVICE: 04/29/2020 SUBJECTIVE: This morning, he is better. OBJECTIVE: VITAL SIGNS: Temperature 98.7, respiratory rate 20, blood pressure 133/66. CHEST: No wheezing. No crackles. CARDIAC: Normal S1 and S2. ASSESSMENT: 1. Chronic obstructive pulmonary disease exacerbation. 2. Bronchitis, improved. PLAN: Will discharge home on present medication. Follow up with Dr. Maravilla. Job ID: [id number]
--- NOTE | 2020-04-29 15:03 | DIS ---
DATE OF ADMISSION: 04/25/2020 DATE OF DISCHARGE: 04/29/2020 DISCHARGE DISPOSITION: Home. FOLLOWUP: 1. Follow up with primary care physician, Dr. Luis Sandoval in 1 week. 2. Follow up with Dr. Curtis Maravilla in 1 week. ALLERGIES: MORPHINE. INPATIENT CONSULTANTS: Pulmonary, Dr. Arevalo, who was covering for Dr. Maravilla. DISCHARGE MEDICATIONS: 1. Prednisone taper. 2. Doxycycline 100 mg b.i.d. for 5 days. All other home medications were left unchanged. CONDITION: The patient was seen and examined on the day of discharge. Denies any new complaints. No significant shortness of breath or wheezing reported. BRIEF HOSPITAL COURSE: The patient is a 74-year-old male with chronic lymphocytic leukemia, presented to the hospital with shortness of breath along with fever and cough. Chest x-ray showed questionable infiltrate. CT angiogram of the chest was negative for pulmonary embolism. It showed patchy infiltrates bilaterally, more extensive on the left. He was started on cefepime with azithromycin. The patient was evaluated by Pulmonary, Dr. Arevalo, who was covering for Dr. Maravilla. His WBC count on admission was 13.3, that improved to 6.2 at discharge. Symptomatically, the patient looks much better and has been cleared by Pulmonary for discharge. His blood culture remained negative. FINAL DIAGNOSES: 1. Sepsis due to pneumonia, suspected gram-negative. 2. Hyponatremia. 3. Chronic low back pain. 4. Hypomagnesemia. Replaced. 5. Chronic lymphoblastic leukemia. 6. Chronic kidney disease, stage 2. 7. Thrombocytopenia. 8. History of abdominal aortic aneurysm repair. 9. 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 The patient understands the above plan of care. Job ID: [id number]
[2020-04-29 16:02] VITALS: BP 138/68; TEMP 97.9
== END 2020-04-29 13:37 | disposition home or self-care (01) | DRG 871 ==
LOC: ERS 08:10 → T4-B 11:05
PROVIDERS: ADMIT Internal Medicine; ATTEND Internal Medicine
PROC: 3E0234Z Introduction of Serum, Toxoid and Vaccine into Muscle, Percutaneous Approach (ICD-10-PCS; principal; 2020-04-25)
DX: A41.59 Other Gram-negative sepsis (principal); J15.6 Pneumonia due to other Gram-negative bacteria; E87.1 Hypo-osmolality and hyponatremia; C91.11 Chronic lymphocytic leukemia of B-cell type in remission; J44.1 Chronic obstructive pulmonary disease with (acute) exacerbation; J44.0 Chronic obstructive pulmonary disease with (acute) lower respiratory infection; G89.29 Other chronic pain; Z20.828 Contact with and (suspected) exposure to other viral communicable diseases; M54.5 Low back pain; E83.42 Hypomagnesemia; N18.2 Chronic kidney disease, stage 2 (mild); D69.6 Thrombocytopenia, unspecified; J40 Bronchitis, not specified as acute or chronic; Z88.5 Allergy status to narcotic agent; Z23 Encounter for immunization; Z87.891 Personal history of nicotine dependence; Z79.899 Other long term (current) drug therapy
CPT/HCPCS: 36415; 71045; 71275; 80048; 80053; 83605; 83735; 83880; 84484; 85025; 85610; 85730; 87040; 90471; 90732; 93005; 94640; G0009; J0456; J0692; J0696; J3475; J3490; J7050; J7512; J7620; Q9967; U0002

== ENCOUNTER 2020-05-14 08:20 | Outpatient (CLI) | payer MEDICARE ==
--- NOTE | 2020-05-14 10:06 | RAD ---
PA AND LATERAL CHEST: Date: 05/14/2020 INDICATION: History of dyspnea. COMPARISON: Prior exam dated 12/27/2019. FINDINGS: There is focal eventration of the right hemidiaphragm. The lungs are generally clear. No pleural effu shey or pneumothorax is evident. There is a mild wedge compression fracture of T7 which is stable. Th ere is thoracolumbar scoliosis. IMPRESSION: Stable elevation of the right hemidiaphragm. No acute abnormality. POS: [facility]
== END 2020-05-14 08:21 | disposition home or self-care (01) ==
LOC: BICRAD 08:20
PROVIDERS: ATTEND Internal Medicine Critical Care Medicine
DX: R06.00 Dyspnea, unspecified (principal); Q79.1 Other congenital malformations of diaphragm
CPT/HCPCS: 71046

== ENCOUNTER 2020-07-02 10:53 | Outpatient (CLI) | payer MEDICARE ==
--- NOTE | 2020-07-02 13:04 | RAD ---
2 VIEW CHEST: Date: 07/02/2020 HISTORY: Dyspnea. COMPARISON: 05/14/2020. FINDINGS: Elevation of right hemidiaphragm is stable. Evidence of atelectasis in the right lung base at the CP angle is slightly more prominent today. No other evidence of infiltrate or atelectasis. No other inte rval change. Heart and mediastinum unremarkable. IMPRESSION: Focal opacity at the right CP angle more pronounced today. This probably represents focal atelectasis . No other interval change noted. POS: [facility]
== END 2020-07-02 10:54 | disposition home or self-care (01) ==
LOC: BICRAD 10:53
PROVIDERS: ATTEND Internal Medicine Critical Care Medicine
DX: R06.00 Dyspnea, unspecified (principal); R91.8 Other nonspecific abnormal finding of lung field
CPT/HCPCS: 71046

== ENCOUNTER 2020-12-29 08:52 | Outpatient (CLI) | payer MEDICARE ==
[2020-12-29] MEDS ORDERED: Iopamidol 370 76% 100 ML VIAL ONE (09:59)
== END 2020-12-29 08:53 | disposition home or self-care (01) ==
LOC: CT 08:52
PROVIDERS: ATTEND Internal Medicine Hematology & Oncology
DX: R51.9 Headache, unspecified (principal); M86.40 Chronic osteomyelitis with draining sinus, unspecified site; C91.10 Chronic lymphocytic leukemia of B-cell type not having achieved remission; Z98.890 Other specified postprocedural states
CPT/HCPCS: 70470; Q9967

== ENCOUNTER 2021-06-17 22:43 | Inpatient (IN) | payer MEDICARE ==
[2021-06-18] MEDS ORDERED: Magnesium 2 GM/50 ML BAG (IN WATER) ONE
[2021-06-18] MEDS ORDERED: Dexamethasone 10 MG/ML VIAL ONE
[2021-06-18] MEDS ORDERED: Vancomycin 1 GM/200 ML BAG ONE
[2021-06-18] MEDS ORDERED: Cefepime 2 GM VIAL ONE
[2021-06-18] MEDS ORDERED: Albuterol Sulfate 2.5 mg/3 ml Neb ONE (00:06)
[2021-06-18 00:22] LABS: Mean Corpuscular Hemoglobin 32.3 pg (27.0-31.0); RBC Distribution Width 12.2 % (11.5-14.5); Red Blood Cell (RBC) Count 4.33 mill/uL (4.70-6.10); White Blood Cell (WBC) Count 6.2 thou/uL (4.8-10.8)
[2021-06-18 00:36] LABS: #Eosinphils 0.1 thou/uL (0.0-0.7); #Lymphocytes 2.1 thou/uL (1.20-3.40); #Monocytes 0.2 thou/uL (0.11-0.59); #Neutrophils 3.8 thou/uL (1.40-6.50); %Basophils 0.5 % (0.0-1.0); %Eosinophils 1.2 % (0.0-10.0); %Lymphocytes 34.7 % (21.0-51.0); %Monocytes 2.6 % (0.0-10.0); Mean Platelet Volume 8.3 fL (7.4-10.4); Platelet Count 98 thou/uL (130-400); Platelet Morphology Comment Appears Decreased; RBC Morphology Normal
[2021-06-18 01:01] LABS: ALT (SGPT) 14 U/L (8-55); AST (SGOT) 26 U/L (5-34); Albumin 4.1 g/dL (3.4-4.8); Alkaline Phosphatase 68 U/L (40-110); Anion Gap 13 mmol/L (10-20); BUN (Urea Nitrogen) 28 mg/dL (8.4-25.7); Bilirubin, Total 0.9 mg/dL (0.2-1.2); CK (CPK) 43 U/L (30-200); Calc. Creatinine Clearance 0 mL/min (70-130); Calcium 9.4 mg/dL (7.8-10.44); Carbon Dioxide 21 mmol/L (23-31); Chloride 104 mmol/L (98-107); Globulin 2.5 g/dL (2.4-3.5); Glucose 141 mg/dL (83-110); Lipase 14 U/L (8-78); Potassium 4.9 mmol/L (3.5-5.1); Protein, Total 6.6 g/dL (5.8-8.1); Sodium 133 mmol/L (136-145)
[2021-06-18 02:01] LABS: Bacteria/HPF None Seen HPF (None Seen); Bilirubin Negative (Negative); Blood, Urine Trace (Negative); Clarity Clear (Clear); Glucose, Urine (Dipstick) Normal (Negative); Ketone, Urine Negative (Negative); Leukocyte Negative Leu/uL (Negative); Nitrite Negative (Negative); Protein, Urine (Dipstick) Negative (Neg-Trace); Specific Gravity, Urine 1.019 (1.002-1.036); Squamous Epithelial None Seen HPF (0-3); Urobilinogen Normal mg/dL (Less than 2); WBC/HPF 0-3 HPF (0-3)
[2021-06-18] MEDS ORDERED: Ondansetron PF 4 MG/2 ML Vial IVP PRN (06:37)
[2021-06-18] MEDS ORDERED: Bisacodyl 10 MG SUPP PR PRN (09:03)
[2021-06-18 09:08] LABS: SARS-CoV-2 NAA Rapid Test Not Detected (NotDetected)
[2021-06-18] MEDS ORDERED: methylPREDNISolone Sod Succ 40 MG VIAL ONE (10:00)
[2021-06-18 10:58] VITALS: BMI 23.8
[2021-06-18] MEDS ORDERED: Iopamidol-370 76% 500 ML 1 ML ONE (11:55)
[2021-06-18] MEDS: Polyethylene Glycol 3350 17 GM Packet PO SCH (12:00)
[2021-06-18] MEDS: methylPREDNISolone Sod Succ/PF 125 MG/2 ML VIAL IVP SCH ×2 (12:00→21:22)
[2021-06-18] MEDS: Acetaminophen 325 MG TAB PO PRN (13:54)
[2021-06-18] MEDS ORDERED: Bisacodyl 5 MG TAB PO SCH (21:40)
[2021-06-19 04:18] LABS: #Basophils 0.1 thou/uL (0.0-0.2); #Lymphocytes 3.1 thou/uL (1.20-3.40); #Monocytes 0.4 thou/uL (0.11-0.59); #Neutrophils 5.3 thou/uL (1.40-6.50); %Basophils 1.2 % (0.0-1.0); %Lymphocytes 34.8 % (21.0-51.0); %Monocytes 4.2 % (0.0-10.0); %Neutrophils 59.8 % (42.0-75.0); Hemoglobin 13.2 g/dL (14.0-18.0); Mean Corpuscular HGB CONC 34.6 g/dL (32.0-36.0); Mean Corpuscular Hemoglobin 32.5 pg (27.0-31.0); Mean Corpuscular Volume 93.8 fL (78.0-98.0); Platelet Count 91 thou/uL (130-400); Red Blood Cell (RBC) Count 4.06 mill/uL (4.70-6.10); White Blood Cell (WBC) Count 8.8 thou/uL (4.8-10.8)
[2021-06-19 04:53] LABS: Calcium 8.9 mg/dL (7.8-10.44); Chloride 104 mmol/L (98-107); Potassium 4.5 mmol/L (3.5-5.1); Sodium 134 mmol/L (136-145)
[2021-06-19 04:54] LABS: Glucose 167 mg/dL (83-110)
[2021-06-19 04:55] LABS: Carbon Dioxide 22 mmol/L (23-31)
[2021-06-19 04:57] LABS: Calc. Creatinine Clearance 90 mL/min (70-130)
[2021-06-19 04:58] LABS: BUN (Urea Nitrogen) 19 mg/dL (8.4-25.7)
[2021-06-19 05:10] LABS: Anion Gap 13 mmol/L (10-20)
[2021-06-19 08:22] VITALS: BP 122/58; TEMP 98.6
[2021-06-19] MEDS: Polyethylene Glycol 3350 17 GM Packet PO SCH (09:13)
[2021-06-19] MEDS: methylPREDNISolone Sod Succ/PF 125 MG/2 ML VIAL IVP SCH (09:13)
[2021-06-19] MEDS: Acetaminophen 325 MG TAB PO PRN (09:14)
[2021-06-19] MEDS ORDERED: Benzonatate 100 MG CAP PO PRN (14:30)
[2021-06-19] MEDS ORDERED: CeleCOXIB 100 MG CAP PO SCH (21:00)
[2021-06-19] MEDS ORDERED: Montelukast Sodium 10 mg Tablet PO SCH (21:00)
[2021-06-19] MEDS ORDERED: Mometasone 100 MCG/PUFF (1 INHALER) INH SCH (21:00)
== END 2021-06-19 18:10 | disposition home or self-care (01) | DRG 191 ==
LOC: ERS 22:43 → ONC 06-18 07:05 → OBSVTOIN 06-18 17:44
PROVIDERS: ADMIT Internal Medicine; ATTEND Hospitalist
DX: J44.1 Chronic obstructive pulmonary disease with (acute) exacerbation (principal); C91.10 Chronic lymphocytic leukemia of B-cell type not having achieved remission; E87.1 Hypo-osmolality and hyponatremia; Z20.822 Contact with and (suspected) exposure to COVID-19; D80.1 Nonfamilial hypogammaglobulinemia; G89.29 Other chronic pain; M54.50 Low back pain, unspecified; D69.6 Thrombocytopenia, unspecified; Z88.5 Allergy status to narcotic agent; Z79.899 Other long term (current) drug therapy; Z79.51 Long term (current) use of inhaled steroids; Z79.52 Long term (current) use of systemic steroids; Z98.890 Other specified postprocedural states; Z87.891 Personal history of nicotine dependence
CPT/HCPCS: 36415; 71045; 71275; 80048; 81003; 81015; 82550; 83605; 83690; 83880; 84484; 85025; 85379; 87040; 93005; 94640; 94760; 96365; 96366; 96367; 96375; G0378; J0692; J1100; J1956; J2920; J2930; J3370; J3475; J7611; J7620; Q9967; U0002

== ENCOUNTER 2022-01-25 08:13 | Inpatient (IN) | payer OTHER, MEDICARE ==
[2022-01-25 11:38] LABS: ALT (SGPT) 12 U/L (8-55); AST (SGOT) 17 U/L (5-34); Albumin 4.3 g/dL (3.4-4.8); Alkaline Phosphatase 89 U/L (40-110); Anion Gap 14 mmol/L (10-20); BUN (Urea Nitrogen) 25 mg/dL (8.4-25.7); Bilirubin, Total 0.5 mg/dL (0.2-1.2); Calc. Creatinine Clearance 0 mL/min (70-130); Calcium 9.5 mg/dL (7.8-10.44); Carbon Dioxide 25 mmol/L (23-31); Chloride 103 mmol/L (98-107); Globulin 2.3 g/dL (2.4-3.5); Glucose 88 mg/dL (83-110); Potassium 4.7 mmol/L (3.5-5.1); Protein, Total 6.6 g/dL (5.8-8.1); Sodium 137 mmol/L (136-145)
[2022-01-25 11:46] LABS: Band 3 % (5-11); Eosinophils 1 % (0-10); Hemoglobin 14.3 g/dL (14.0-18.0); Lymphocytes 61 % (21-51); MDiff Complete? YES; Mean Corpuscular HGB CONC 33.5 g/dL (32.0-36.0); Mean Corpuscular Hemoglobin 32.3 pg (27.0-31.0); Mean Corpuscular Volume 96.6 fL (78.0-98.0); Mean Platelet Volume 7.8 fL (7.4-10.4); Monocytes 4 % (0-10); Neutrophil 30 % (42-75); Platelet Count 117 thou/uL (130-400); Platelet Morphology Comment Appears Decreased; RBC Distribution Width 12.7 % (11.5-14.5); RBC Morphology Normal; Reactive Lymphocytes 1 % (0-10); Red Blood Cell (RBC) Count 4.41 mill/uL (4.70-6.10); White Blood Cell (WBC) Count 16.9 thou/uL (4.8-10.8)
[2022-01-25] MEDS ORDERED: Ampicillin/Sulbactam 3 GM in Sodium Chloride 0.9% 100 ML IVPB SCH (12:15)
[2022-01-25 13:52] VITALS: BMI 23.5
[2022-01-25] MEDS ORDERED: Acetaminophen 325 MG TAB PO PRN (14:30)
[2022-01-25] MEDS ORDERED: Ondansetron ODT 4 MG TAB SL PRN (14:30)
[2022-01-25] MEDS ORDERED: Ondansetron PF 4 MG/2 ML Vial IVP PRN (14:30)
[2022-01-25] MEDS ORDERED: hydrALAZINE 20 MG/ML VIAL SLOW IVP PRN (15:08)
[2022-01-25] MEDS ORDERED: Dextrose 50% Abboject 50 ML SYRINGE SLOW IVP PRN (15:08)
[2022-01-25] MEDS ORDERED: Dextrose 5% in Water 1,000 ML IV PRN (15:08)
[2022-01-25 15:14] LABS: Troponin I Less than 0.010 ng/mL (< 0.028)
[2022-01-25] MEDS ORDERED: Cyclobenzaprine 10 MG TAB PO PRN (15:15)
[2022-01-25] MEDS ORDERED: traMADol HCl 50 MG TAB PO PRN ×2 (15:15)
[2022-01-25] MEDS: Ampicillin/Sulbactam 3 GM in Sodium Chloride 0.9% 100 ML IVPB SCH ×2 (17:46→23:42)
[2022-01-25] MEDS: Acetaminophen 500 MG TAB PO SCH ×2 (18:08→23:42)
[2022-01-25] MEDS: Famotidine 20 MG TAB PO SCH (21:05)
[2022-01-25] MEDS: Senokot S 8.6-50 MG TAB PO SCH (21:05)
[2022-01-25] MEDS: Gabapentin 100 MG CAP PO SCH (21:06)
[2022-01-25] MEDS: Ipratropium Bromide 0.06% Nasal Inhaler 15ml EA NARE SCH (21:06)
[2022-01-25] MEDS: Mometasone 100 MCG/PUFF (1 INHALER) INH SCH (21:06)
[2022-01-26 05:35] LABS: Anion Gap 11 mmol/L (10-20); BUN (Urea Nitrogen) 21 mg/dL (8.4-25.7); Calc. Creatinine Clearance 89 mL/min (70-130); Calcium 9.1 mg/dL (7.8-10.44); Carbon Dioxide 24 mmol/L (23-31); Cardiac Risk 5.7 (Less than 4.5); Chloride 105 mmol/L (98-107); Cholesterol 147 mg/dl (< 200 Desired); Glucose 104 mg/dL (83-110); HDL Cholesterol 26 mg/dL (>60 Neg Risk); LDL Cholesterol, Calculated 101 mg/dL; Magnesium 2.1 mg/dL (1.6-2.6); Phosphorus 3.2 mg/dL (2.3-4.7); Potassium 4.2 mmol/L (3.5-5.1); Sodium 136 mmol/L (136-145); Triglycerides 99 mg/dL (Less than 150)
[2022-01-26] MEDS: Acetaminophen 500 MG TAB PO SCH ×4 (05:46→22:31)
[2022-01-26] MEDS: Ampicillin/Sulbactam 3 GM in Sodium Chloride 0.9% 100 ML IVPB SCH ×4 (05:47→22:31)
[2022-01-26 05:56] LABS: Band 1 % (5-11); Hemoglobin 13.9 g/dL (14.0-18.0); Lymphocytes 61 % (21-51); MDiff Complete? YES; Mean Corpuscular HGB CONC 32.8 g/dL (32.0-36.0); Mean Corpuscular Hemoglobin 31.8 pg (27.0-31.0); Mean Corpuscular Volume 96.7 fL (78.0-98.0); Mean Platelet Volume 7.6 fL (7.4-10.4); Monocytes 6 % (0-10); Neutrophil 32 % (42-75); Platelet Count 111 thou/uL (130-400); Platelet Morphology Comment Appears Decreased; RBC Distribution Width 12.7 % (11.5-14.5); RBC Morphology Normal; Red Blood Cell (RBC) Count 4.37 mill/uL (4.70-6.10); White Blood Cell (WBC) Count 11.3 thou/uL (4.8-10.8)
[2022-01-26] MEDS ORDERED: PHOS-NAK 1 PKT PACK PO SCH (07:30)
[2022-01-26] MEDS: Mometasone 100 MCG/PUFF (1 INHALER) INH SCH ×2 (07:36→20:45)
[2022-01-26] MEDS: Famotidine 20 MG TAB PO SCH ×2 (09:03→20:46)
[2022-01-26] MEDS: Senokot S 8.6-50 MG TAB PO SCH ×2 (09:03→20:46)
[2022-01-26] MEDS: Gabapentin 100 MG CAP PO SCH ×3 (09:03→20:46)
[2022-01-26] MEDS: Polyethylene Glycol 3350 17 GM Packet PO SCH (09:06)
[2022-01-26] MEDS: Ipratropium Bromide 0.06% Nasal Inhaler 15ml EA NARE SCH ×2 (20:45)
[2022-01-27] MEDS ORDERED: Calcium Carbonate 500 MG ChewTAB PO PRN (00:02)
[2022-01-27 05:41] LABS: Band 1 % (5-11); Eosinophils 1 % (0-10); Hemoglobin 13.5 g/dL (14.0-18.0); Hypochromia SLIGHT = 6-15 cells (100X) (0-5/hpf); Lymphocytes 45 % (21-51); MDiff Complete? YES; Mean Corpuscular Hemoglobin 32.1 pg (27.0-31.0); Mean Corpuscular Volume 97.4 fL (78.0-98.0); Mean Platelet Volume 7.7 fL (7.4-10.4); Monocytes 8 % (0-10); Neutrophil 45 % (42-75); Platelet Count 99 thou/uL (130-400); Platelet Morphology Comment Appears Decreased; RBC Distribution Width 12.6 % (11.5-14.5); Red Blood Cell (RBC) Count 4.21 mill/uL (4.70-6.10); White Blood Cell (WBC) Count 9.1 thou/uL (4.8-10.8)
[2022-01-27] MEDS: Acetaminophen 500 MG TAB PO SCH ×2 (06:02→12:00)
[2022-01-27] MEDS: Ampicillin/Sulbactam 3 GM in Sodium Chloride 0.9% 100 ML IVPB SCH (06:03)
[2022-01-27] MEDS: Mometasone 100 MCG/PUFF (1 INHALER) INH SCH (06:37)
[2022-01-27] MEDS: Gabapentin 100 MG CAP PO SCH (08:47)
[2022-01-27] MEDS: Senokot S 8.6-50 MG TAB PO SCH (08:47)
[2022-01-27] MEDS: Polyethylene Glycol 3350 17 GM Packet PO SCH (08:48)
[2022-01-27] MEDS: Famotidine 20 MG TAB PO SCH (08:48)
[2022-01-27] MEDS ORDERED: Saccharomyces boulardii 250 MG CAP PO SCH (09:00)
[2022-01-27] MEDS ORDERED: Amoxicillin/Potassium Clav 875 MG TAB PO SCH (09:00)
[2022-01-27] MEDS ORDERED: Ondansetron PF 4 MG/2 ML Vial IVP PRN (10:50)
[2022-01-27 12:23] VITALS: BP 121/79; TEMP 97.2
== END 2022-01-27 13:59 | disposition home or self-care (01) | DRG 605 ==
LOC: ERS 08:13 → 2SW 11:42 → OBSVTOIN 01-26 12:02
PROVIDERS: ADMIT Surgery; ATTEND Surgery
DX: S61.255A Open bite of left ring finger without damage to nail, initial encounter (principal); C91.10 Chronic lymphocytic leukemia of B-cell type not having achieved remission; M00.9 Pyogenic arthritis, unspecified; L03.012 Cellulitis of left finger; J44.9 Chronic obstructive pulmonary disease, unspecified; I71.4 Abdominal aortic aneurysm, without rupture; G89.29 Other chronic pain; M54.9 Dorsalgia, unspecified; I45.5 Other specified heart block; Z20.822 Contact with and (suspected) exposure to COVID-19; Z87.891 Personal history of nicotine dependence; Z88.5 Allergy status to narcotic agent; Z98.890 Other specified postprocedural states; W54.0XXA Bitten by dog, initial encounter; Y92.009 Unspecified place in unspecified non-institutional (private) residence as the place of occurrence of the external cause
CPT/HCPCS: 36415; 80048; 80053; 80061; 83735; 84100; 84443; 84484; 85025; 93005; 93010; 94640; 96365; 96366; 96376; G0378; J0295; J2405; J3490; J7620; U0003; U0005

== ENCOUNTER 2022-12-06 08:23 | Emergency (ER) | payer MEDICARE ==
[2022-12-06] MEDS ORDERED: Ketorolac Tromethamine 30 MG/ML VIAL ONE (09:41)
== END 2022-12-06 10:05 | disposition home or self-care (01) ==
LOC: ERS 08:23
DX: M25.512 Pain in left shoulder (principal)
CPT/HCPCS: 96372; J1885

== ENCOUNTER 2023-02-23 06:31 | Day surgery (SDC) | payer MEDICARE ==
[2023-02-22 13:53] VITALS: BMI 22.5
[2023-02-23] MEDS ORDERED: Heparin 10,000 UNITS/ 10 ML VIAL ONE (06:40)
[2023-02-23] MEDS ORDERED: Verapamil 5 MG/2 ML VIAL ONE (06:40)
[2023-02-23] MEDS ORDERED: Adenosine 6 MG/2 ML VIAL ONE (06:40)
[2023-02-23] MEDS ORDERED: Lidocaine 1% (PF) 30 ML VIAL ONE (06:41)
[2023-02-23] MEDS ORDERED: Nitroglycerin 50 MG/250 ML BOT 250 ML ONE (06:41)
[2023-02-23 06:55] LABS: Mean Corpuscular Volume 93.7 fl (78.0-98.0); RBC Distribution Width 13.2 % (11.5-14.5); Red Blood Cell (RBC) Count 4.41 mill/uL (4.70-6.10)
[2023-02-23 06:56] LABS: Hemoglobin 13.7 g/dL (14.0-18.0); Mean Corpuscular HGB CONC 33.2 g/dL (32.0-36.0); Mean Corpuscular Hemoglobin 31.1 pg (27.0-31.0); Mean Platelet Volume 10.6 fL (7.4-10.4); Platelet Count 133 10x3/uL (130-400); White Blood Cell (WBC) Count 15.2 10x3/uL (4.8-10.8)
[2023-02-23 07:22] LABS: Anion Gap 13 mmol/L (10-20); BUN (Urea Nitrogen) 23 mg/dL (8.4-25.7); Calc. Creatinine Clearance 72 mL/min (70-130); Calcium 9.7 mg/dL (7.8-10.44); Carbon Dioxide 24 mmol/L (23-31); Chloride 105 mmol/L (98-107); Estimated GFR 77; Glucose 105 mg/dL (83-110); Potassium 4.2 mmol/L (3.5-5.1); Sodium 138 mmol/L (136-145)
[2023-02-23] MEDS ORDERED: Midazolam HCl 2 mg/2 ml Vial ONE (07:51)
[2023-02-23] MEDS ORDERED: fentaNYL 50 mcg/mL 1 mL Vial ONE (07:52)
== END 2023-02-23 13:00 | disposition home or self-care (01) ==
LOC: CCL 06:31
PROVIDERS: ATTEND Internal Medicine Cardiovascular Disease
DX: R94.39 Abnormal result of other cardiovascular function study (principal); R06.09 Other forms of dyspnea; J44.9 Chronic obstructive pulmonary disease, unspecified; I25.10 Atherosclerotic heart disease of native coronary artery without angina pectoris; Z98.890 Other specified postprocedural states; Z87.891 Personal history of nicotine dependence; Z88.6 Allergy status to analgesic agent
CPT/HCPCS: 80048; 85027; J3010; 93458; 93571; 99152; 99153; J0153; J1644; J2001; J2250

== ENCOUNTER 2023-04-04 21:16 | Inpatient (IN) | payer MEDICARE ==
[~2023-04-04 21:16] MED LIST changes: -Iopamidol-370 76% 500 ML 1 ML ONE; +Iopamidol-370 76% 500 ML MDV (1 ML CHARGE) ONE
[2023-04-04 22:06] LABS: Hematocrit 37.2 % (42.0-52.0); Mean Corpuscular HGB CONC 34.9 g/dL (32.0-36.0); Mean Corpuscular Hemoglobin 31.7 pg (27.0-31.0); Mean Corpuscular Volume 90.7 fl (78.0-98.0); Mean Platelet Volume 9.2 fL (7.4-10.4); Platelet Count 204 10x3/uL (130-400); RBC Distribution Width 13.8 % (11.5-14.5); White Blood Cell (WBC) Count 13.6 10x3/uL (4.8-10.8)
[2023-04-04 22:11] LABS: Delete Auto Diff?? YES; Manual Diff?? YES
[2023-04-04 22:18] LABS: Troponin I Less than 0.010 ng/mL (< 0.028)
[2023-04-04 22:22] LABS: ALT (SGPT) 21 U/L (8-55); AST (SGOT) 21 U/L (5-34); Albumin 3.7 g/dL (3.4-4.8); Alkaline Phosphatase 173 U/L (40-110); Anion Gap 14 mmol/L (10-20); BUN (Urea Nitrogen) 18 mg/dL (8.4-25.7); Bilirubin, Total 0.4 mg/dL (0.2-1.2); Calc. Creatinine Clearance 0 mL/min (70-130); Calcium 9.3 mg/dL (7.8-10.44); Carbon Dioxide 26 mmol/L (23-31); Chloride 96 mmol/L (98-107); Estimated GFR 93; Glucose 126 mg/dL (83-110); Potassium 4.3 mmol/L (3.5-5.1); Sodium 132 mmol/L (136-145)
[2023-04-04] MEDS ORDERED: methylPREDNISolone Sod Succ 40 MG VIAL ONE (22:52)
[2023-04-04 22:58] LABS: Globulin 2.4 g/dL (2.4-3.5); Protein, Total 6.1 g/dL (5.8-8.1)
[2023-04-04] MEDS ORDERED: Ipratropium/Albuterol 3 ML NEB ONE (23:03)
[2023-04-04] MEDS ORDERED: cefTRIAXone (ROCEPHIN) 1 GM VIAL ONE (23:10)
[2023-04-04 23:32] LABS: Band 3 % (5-11); Eosinophils 2 % (0-10); Lymphocytes 32 % (21-51); Monocytes 5 % (0-10); Neutrophil 51 % (42-75); Platelet Adequacy Comment Platelets Normal; Reactive Lymphocytes 7 % (0-10); Total Cell Count 100
[2023-04-04] MEDS ORDERED: Acetaminophen 500 MG TAB ONE (23:44)
[2023-04-04 23:46] LABS: Actual Bicarbonate (HCO3v) 21.9 mEq/L (22-28); Base Excess 0.4 mEq/L (-2.0 to +3.0); Calcium, Ionized (venous) 1.04 mmol/L (1.16-1.32); Chloride (VBG) 98 mmol/L (98-106); Hematocrit-VBG 40 % (42.0-52.0); Hemoglobin (Hb) 13.6 g/dL (12.6-17.4); Sodium 128.4 mmol/L (133-146); pH (venous) 7.527 (7.32-7.43)
[2023-04-05 00:11] LABS: Magnesium 1.7 mg/dL (1.6-2.6)
[2023-04-05 00:13] LABS: SARS-CoV-2 NAA Rapid Test Not Detected (NotDetected)
[2023-04-05 01:15] VITALS: BMI 22.1
[2023-04-05] MEDS ORDERED: Lactated Ringer's 1,000 ML IV SCH (01:15)
[2023-04-05] MEDS ORDERED: Acetaminophen 325 MG TAB PO PRN (01:15)
[2023-04-05] MEDS ORDERED: Ondansetron ODT 4 MG TAB SL PRN (01:15)
[2023-04-05] MEDS ORDERED: Ondansetron PF 4 MG/2 ML Vial IVP PRN (01:15)
[2023-04-05] MEDS ORDERED: Magnesium 2 GM/50 ML(in water) 1 GM in Premix Bag 1 BAG IVPB SCH (01:30)
[2023-04-05 01:41] LABS: Anion Gap 14 mmol/L (10-20); BUN (Urea Nitrogen) 17 mg/dL (8.4-25.7); Calc. Creatinine Clearance 90 mL/min (70-130); Carbon Dioxide 22 mmol/L (23-31); Chloride 98 mmol/L (98-107); Estimated GFR 92; Glucose 130 mg/dL (83-110); Potassium 4.3 mmol/L (3.5-5.1); Sodium 130 mmol/L (136-145)
[2023-04-05] MEDS: Lactated Ringer's 1,000 ML IV SCH ×3 (01:44→20:57)
[2023-04-05 01:48] LABS: Troponin I Less than 0.010 ng/mL (< 0.028)
[2023-04-05] MEDS: HYDROcodone/Acetaminophen 5/325 mg Tablet PO PRN ×4 (02:03→23:52)
[2023-04-05] MEDS ORDERED: Ipratropium Bromide 2.5 ml Neb NEB SCH (02:30)
[2023-04-05 04:43] LABS: Hematocrit 35.9 % (42.0-52.0); Hemoglobin 11.9 g/dL (14.0-18.0); Mean Corpuscular HGB CONC 33.1 g/dL (32.0-36.0); Mean Platelet Volume 9.4 fL (7.4-10.4); Platelet Count 155 10x3/uL (130-400); RBC Distribution Width 13.7 % (11.5-14.5); Red Blood Cell (RBC) Count 3.84 mill/uL (4.70-6.10); White Blood Cell (WBC) Count 6.9 10x3/uL (4.8-10.8)
[2023-04-05 04:49] LABS: Delete Auto Diff?? YES; Manual Diff?? YES; Mean Corpuscular Volume 93.5 fl (78.0-98.0)
[2023-04-05 05:09] LABS: ALT (SGPT) 18 U/L (8-55); AST (SGOT) 19 U/L (5-34); Albumin 3.4 g/dL (3.4-4.8); Alkaline Phosphatase 164 U/L (40-110); Anion Gap 12 mmol/L (10-20); BUN (Urea Nitrogen) 15 mg/dL (8.4-25.7); Bilirubin, Total 0.3 mg/dL (0.2-1.2); Calc. Creatinine Clearance 92 mL/min (70-130); Calcium 8.9 mg/dL (7.8-10.44); Carbon Dioxide 23 mmol/L (23-31); Chloride 99 mmol/L (98-107); Estimated GFR 92; Globulin 2.2 g/dL (2.4-3.5); Glucose 148 mg/dL (83-110); Potassium 4.4 mmol/L (3.5-5.1); Protein, Total 5.6 g/dL (5.8-8.1); Sodium 130 mmol/L (136-145)
[2023-04-05 05:11] LABS: Troponin I Less than 0.010 ng/mL (< 0.028)
[2023-04-05 05:24] LABS: Band 2 % (5-11); Lymphocytes 29 % (21-51); Monocytes 3 % (0-10); Neutrophil 65 % (42-75); Platelet Adequacy Comment Platelets Normal; Polychromasia SLIGHT = 2-3 cells HPF (0-2); Reactive Lymphocytes 1 % (0-10); Total Cell Count 101
[2023-04-05 06:05] LABS: Legionella Urinary Ag Negative (Negative); Strep pneumo Urine Ag NEGATIVE (NEGATIVE)
[2023-04-05] MEDS ORDERED: Ipratropium/Albuterol 3 ML NEB NEB SCH (06:30)
[2023-04-05] MEDS: Cefepime 1 GM in Sodium Chloride 0.9% 100 ML IVPB SCH ×2 (08:46→20:42)
[2023-04-05] MEDS: guaiFENesin ER 600 MG TAB PO SCH ×2 (08:47→20:42)
[2023-04-05 08:58] LABS: Anion Gap 14 mmol/L (10-20); BUN (Urea Nitrogen) 14 mg/dL (8.4-25.7); Calc. Creatinine Clearance 97 mL/min (70-130); Calcium 9.1 mg/dL (7.8-10.44); Carbon Dioxide 22 mmol/L (23-31); Chloride 97 mmol/L (98-107); Estimated GFR 94; Glucose 210 mg/dL (83-110); Potassium 4.1 mmol/L (3.5-5.1); Sodium 129 mmol/L (136-145)
[2023-04-05] MEDS ORDERED: Non-Formulary Item 1 EACH (Fluticasone/Umeclidin/Vilanter [Trelegy Ellipta 100-62.5-25] 1 IH SCH (09:00)
[2023-04-05] MEDS ORDERED: predniSONE 20 MG TAB PO SCH (09:00)
[2023-04-05] MEDS: Atorvastatin Calcium 40 MG TAB PO SCH (09:50)
[2023-04-05] MEDS: Benzonatate 100 MG CAP PO SCH ×3 (09:51→20:42)
[2023-04-05] MEDS: Ipratropium/Albuterol 3 ML NEB NEB SCH ×4 (13:08→18:47)
[2023-04-05] MEDS: Fluticasone Propionate Nasal Spray 16 gm Bottle NASAL SCH (14:15)
[2023-04-05] MEDS: methylPREDNISolone Sod Succ 40 MG VIAL IVP SCH ×2 (19:02→23:52)
[2023-04-06] MEDS: Lactated Ringer's 1,000 ML IV SCH ×3 (01:48→17:58)
[2023-04-06] MEDS: Melatonin 3 MG TAB PO PRN ×2 (02:14→20:09)
[2023-04-06] MEDS: methylPREDNISolone Sod Succ 40 MG VIAL IVP SCH ×3 (05:34→17:53)
[2023-04-06] MEDS: HYDROcodone/Acetaminophen 5/325 mg Tablet PO PRN ×3 (06:26→21:32)
[2023-04-06] MEDS: Ipratropium/Albuterol 3 ML NEB NEB SCH ×4 (07:40→19:00)
[2023-04-06] MEDS: Cefepime 2 GM in Sodium Chloride 0.9% 100 ML IVPB SCH ×2 (09:50→20:09)
[2023-04-06] MEDS: guaiFENesin ER 600 MG TAB PO SCH ×2 (09:51→20:10)
[2023-04-06] MEDS: tiZANidine HCl 4 MG TAB PO SCH (09:51)
[2023-04-06] MEDS: Benzonatate 100 MG CAP PO SCH ×3 (09:51→20:09)
[2023-04-06] MEDS: Atorvastatin Calcium 40 MG TAB PO SCH (09:51)
[2023-04-06] MEDS: Fluticasone Propionate Nasal Spray 16 gm Bottle NASAL SCH (13:18)
[2023-04-07] MEDS: methylPREDNISolone Sod Succ 40 MG VIAL IVP SCH ×5 (00:19→23:56)
[2023-04-07] MEDS: Lactated Ringer's 1,000 ML IV SCH (00:37)
[2023-04-07] MEDS: HYDROcodone/Acetaminophen 5/325 mg Tablet PO PRN ×4 (03:30→23:56)
[2023-04-07 05:39] LABS: #Neutrophils 7.5 thou/uL (1.40-6.50); %Basophils 0.1 % (0.0-1.0); %Lymphocytes 30.5 % (21.0-51.0); %Monocytes 8.2 % (0.0-10.0); %Neutrophils 60.4 % (42.0-75.0); Hemoglobin 11.6 g/dL (14.0-18.0); Mean Corpuscular HGB CONC 33.1 g/dL (32.0-36.0); Mean Corpuscular Hemoglobin 31.5 pg (27.0-31.0); Mean Corpuscular Volume 95.1 fl (78.0-98.0); Mean Platelet Volume 9.3 fL (7.4-10.4); Platelet Count 195 10x3/uL (130-400); RBC Distribution Width 14.1 % (11.5-14.5); Red Blood Cell (RBC) Count 3.68 mill/uL (4.70-6.10); White Blood Cell (WBC) Count 12.5 10x3/uL (4.8-10.8)
[2023-04-07 06:01] LABS: Anion Gap 13 mmol/L (10-20); BUN (Urea Nitrogen) 18 mg/dL (8.4-25.7); CRP (Inflammatory) 0.63 mg/dL (= or < 0.5); Calc. Creatinine Clearance 92 mL/min (70-130); Calcium 8.8 mg/dL (7.8-10.44); Carbon Dioxide 24 mmol/L (23-31); Chloride 101 mmol/L (98-107); Estimated GFR 92; Glucose 130 mg/dL (83-110); Potassium 4.5 mmol/L (3.5-5.1); Sodium 133 mmol/L (136-145)
[2023-04-07] MEDS: Ipratropium/Albuterol 3 ML NEB NEB SCH ×4 (07:08→18:38)
[2023-04-07] MEDS: Guaifenesin DM 100-10/5 ML UDCUP PO PRN (09:38)
[2023-04-07] MEDS: Cefepime 2 GM in Sodium Chloride 0.9% 100 ML IVPB SCH ×2 (09:38→20:21)
[2023-04-07] MEDS: Benzonatate 100 MG CAP PO SCH ×3 (09:39→20:21)
[2023-04-07] MEDS: Fluticasone Propionate Nasal Spray 16 gm Bottle NASAL SCH (09:39)
[2023-04-07] MEDS: tiZANidine HCl 4 MG TAB PO SCH (09:39)
[2023-04-07] MEDS: guaiFENesin ER 600 MG TAB PO SCH ×2 (09:39→20:21)
[2023-04-07] MEDS: Atorvastatin Calcium 40 MG TAB PO SCH (09:39)
[2023-04-07] MEDS: Senokot S 8.6-50 MG TAB PO SCH (20:22)
[2023-04-07 21:12] LABS: Mycoplasma pneumoniae IgG AB Less than 100 U/mL (0-99); Mycoplasma pneumoniae IgM AB Less than 770 U/mL (0-769)
[2023-04-07] MEDS: Melatonin 3 MG TAB PO PRN (21:41)
[2023-04-08] MEDS: HYDROcodone/Acetaminophen 5/325 mg Tablet PO PRN ×3 (05:29→20:27)
[2023-04-08] MEDS: methylPREDNISolone Sod Succ 40 MG VIAL IVP SCH ×4 (05:30→23:48)
[2023-04-08] MEDS: Ipratropium/Albuterol 3 ML NEB NEB SCH ×5 (09:54→22:44)
[2023-04-08] MEDS: Cefepime 2 GM in Sodium Chloride 0.9% 100 ML IVPB SCH (09:58)
[2023-04-08] MEDS: Atorvastatin Calcium 40 MG TAB PO SCH (09:59)
[2023-04-08] MEDS: tiZANidine HCl 4 MG TAB PO SCH (09:59)
[2023-04-08] MEDS: Benzonatate 100 MG CAP PO SCH ×3 (09:59→20:26)
[2023-04-08] MEDS: guaiFENesin ER 600 MG TAB PO SCH ×2 (09:59→20:27)
[2023-04-08] MEDS: Senokot S 8.6-50 MG TAB PO SCH ×2 (09:59→20:25)
[2023-04-08] MEDS: Lidocaine 4% Patch TD SCH (10:00)
[2023-04-08] MEDS: Fluticasone Propionate Nasal Spray 16 gm Bottle NASAL SCH (10:00)
[2023-04-08] MEDS: Isosorbide Mononitrate 20 MG TAB PO SCH (20:25)
[2023-04-08] MEDS: Melatonin 3 MG TAB PO PRN (20:27)
[2023-04-08] MEDS: Cefdinir 300 MG CAP PO SCH (20:27)
[2023-04-08] MEDS: Transdermal Patch Removal TOP SCH (20:31)
[2023-04-09] MEDS: HYDROcodone/Acetaminophen 5/325 mg Tablet PO PRN ×3 (04:15→19:00)
[2023-04-09 04:42] LABS: #Monocytes 0.5 thou/uL (0.11-0.59); #Neutrophils 6.7 thou/uL (1.40-6.50); %Basophils 0.1 % (0.0-1.0); %Lymphocytes 37.3 % (21.0-51.0); %Monocytes 4.2 % (0.0-10.0); Hematocrit 38.5 % (42.0-52.0); Hemoglobin 12.6 g/dL (14.0-18.0); Mean Corpuscular HGB CONC 32.7 g/dL (32.0-36.0); Mean Corpuscular Volume 94.6 fl (78.0-98.0); Mean Platelet Volume 9.1 fL (7.4-10.4); Platelet Count 200 10x3/uL (130-400); Red Blood Cell (RBC) Count 4.07 mill/uL (4.70-6.10); White Blood Cell (WBC) Count 11.8 10x3/uL (4.8-10.8)
[2023-04-09 04:53] LABS: Delete Auto Diff?? NO
[2023-04-09 05:02] LABS: Anion Gap 10 mmol/L (10-20); BUN (Urea Nitrogen) 19 mg/dL (8.4-25.7); CRP (Inflammatory) Less than 0.50 mg/dL (= or < 0.5); Calc. Creatinine Clearance 87 mL/min (70-130); Calcium 8.9 mg/dL (7.8-10.44); Carbon Dioxide 30 mmol/L (23-31); Chloride 97 mmol/L (98-107); Estimated GFR 91; Glucose 150 mg/dL (83-110); Potassium 4.3 mmol/L (3.5-5.1); Sodium 133 mmol/L (136-145)
[2023-04-09 06:00] LABS: CellaVision Operator ID LAB.JMM; Platelet Adequacy Comment Platelets Normal; RBC Morphology Within Normal Limits
[2023-04-09] MEDS: methylPREDNISolone Sod Succ 40 MG VIAL IVP SCH ×2 (06:06→14:06)
[2023-04-09] MEDS: Ipratropium/Albuterol 3 ML NEB NEB SCH ×4 (07:22→18:31)
[2023-04-09] MEDS: Benzonatate 100 MG CAP PO SCH ×3 (09:27→21:45)
[2023-04-09] MEDS: Atorvastatin Calcium 40 MG TAB PO SCH (09:27)
[2023-04-09] MEDS: guaiFENesin ER 600 MG TAB PO SCH ×2 (09:27→21:44)
[2023-04-09] MEDS: Lidocaine 4% Patch TD SCH (09:27)
[2023-04-09] MEDS: Cefdinir 300 MG CAP PO SCH ×2 (09:27→21:44)
[2023-04-09] MEDS: Isosorbide Mononitrate 20 MG TAB PO SCH ×2 (09:27→21:44)
[2023-04-09] MEDS: Polyethylene Glycol 3350 17 GM Packet PO SCH (09:27)
[2023-04-09] MEDS: Senokot S 8.6-50 MG TAB PO SCH ×2 (09:28→21:44)
[2023-04-09] MEDS: tiZANidine HCl 4 MG TAB PO SCH (09:28)
[2023-04-09] MEDS: Fluticasone Propionate Nasal Spray 16 gm Bottle NASAL SCH (09:29)
[2023-04-09] MEDS: Guaifenesin DM 100-10/5 ML UDCUP PO PRN (19:00)
[2023-04-09] MEDS: Benzocaine/Menthol 1 LOZ LOZ PO PRN (19:36)
[2023-04-09] MEDS ORDERED: ALPRAZolam 0.5 MG TAB PO SCH (21:00)
[2023-04-09] MEDS: Melatonin 3 MG TAB PO PRN (21:44)
[2023-04-09] MEDS: Transdermal Patch Removal TOP SCH (21:45)
[2023-04-10] MEDS: HYDROcodone/Acetaminophen 5/325 mg Tablet PO PRN (05:19)
[2023-04-10] MEDS: Benzocaine/Menthol 1 LOZ LOZ PO PRN (05:20)
[2023-04-10] MEDS: Ipratropium/Albuterol 3 ML NEB NEB SCH ×3 (07:26→14:30)
[2023-04-10] MEDS ORDERED: predniSONE 20 MG TAB PO SCH (08:00)
[2023-04-10] MEDS: Isosorbide Mononitrate 20 MG TAB PO SCH (09:37)
[2023-04-10] MEDS: tiZANidine HCl 4 MG TAB PO SCH (09:40)
[2023-04-10] MEDS: Benzonatate 100 MG CAP PO SCH ×2 (09:41→14:44)
[2023-04-10] MEDS: Atorvastatin Calcium 40 MG TAB PO SCH (09:42)
[2023-04-10] MEDS: guaiFENesin ER 600 MG TAB PO SCH (09:42)
[2023-04-10] MEDS: Cefdinir 300 MG CAP PO SCH (09:42)
[2023-04-10] MEDS: Senokot S 8.6-50 MG TAB PO SCH (09:42)
[2023-04-10] MEDS: Lidocaine 4% Patch TD SCH (09:46)
[2023-04-10] MEDS: Polyethylene Glycol 3350 17 GM Packet PO SCH (09:46)
[2023-04-10] MEDS: Fluticasone Propionate Nasal Spray 16 gm Bottle NASAL SCH (09:57)
[2023-04-10 14:00] VITALS: BP 156/88; TEMP 97.4
== END 2023-04-10 18:50 | disposition home or self-care (01) | DRG 193 ==
LOC: ERS 21:16 → 2NO 23:11
PROVIDERS: ADMIT Internal Medicine; ATTEND Hospitalist
DX: J18.9 Pneumonia, unspecified organism (principal); J96.01 Acute respiratory failure with hypoxia; J44.1 Chronic obstructive pulmonary disease with (acute) exacerbation; E87.1 Hypo-osmolality and hyponatremia; C91.10 Chronic lymphocytic leukemia of B-cell type not having achieved remission; D80.1 Nonfamilial hypogammaglobulinemia; J44.0 Chronic obstructive pulmonary disease with (acute) lower respiratory infection; D69.6 Thrombocytopenia, unspecified; I25.10 Atherosclerotic heart disease of native coronary artery without angina pectoris; M54.50 Low back pain, unspecified; G89.29 Other chronic pain; Z20.822 Contact with and (suspected) exposure to COVID-19; D63.8 Anemia in other chronic diseases classified elsewhere; J20.6 Acute bronchitis due to rhinovirus; I34.0 Nonrheumatic mitral (valve) insufficiency; R73.9 Hyperglycemia, unspecified; Z88.5 Allergy status to narcotic agent; Z79.51 Long term (current) use of inhaled steroids; Z79.899 Other long term (current) drug therapy; Z98.890 Other specified postprocedural states; Z87.891 Personal history of nicotine dependence; Z95.5 Presence of coronary angioplasty implant and graft; Z86.79 Personal history of other diseases of the circulatory system
CPT/HCPCS: 36415; 36416; 71045; 71275; 76700; 80048; 80053; 82805; 82977; 83605; 83735; 83880; 84100; 84145; 84484; 85025; 86140; 87040; 87070; 87081; 87205; 87449; 87633; 87798; 87899; 93005; 93306; 94640; 96365; 96375; J0692; J0696; J1650; J2920; J3475; J3490; J7120; J7512; J7611; J7620; Q9967

== ENCOUNTER 2023-04-23 12:27 | Inpatient (IN) | payer MEDICARE ==
[2023-04-23] MEDS ORDERED: Sodium Chloride 0.9% 100 ML ONE (13:09)
[2023-04-23] MEDS ORDERED: Cefepime 2 GM VIAL ONE (13:09)
[2023-04-23] MEDS ORDERED: Vancomycin 1 GM/200 ML (FROZEN) BAG ONE (13:09)
[2023-04-23] MEDS ORDERED: Ipratropium/Albuterol 3 ML NEB ONE (13:10)
[2023-04-23 13:12] LABS: Hematocrit 42.9 % (42.0-52.0); Mean Corpuscular HGB CONC 32.6 g/dL (32.0-36.0); Mean Corpuscular Hemoglobin 30.8 pg (27.0-31.0); Mean Corpuscular Volume 94.5 fl (78.0-98.0); Mean Platelet Volume 9.2 fL (7.4-10.4); Platelet Count 183 10x3/uL (130-400); RBC Distribution Width 14.1 % (11.5-14.5); Red Blood Cell (RBC) Count 4.54 mill/uL (4.70-6.10)
[2023-04-23 13:13] LABS: Delete Auto Diff?? YES; Manual Diff?? YES
[2023-04-23 13:18] LABS: INR-International Normal Ratio 1.1; Prothrombin Time 14.6 sec (12.0-14.7)
[2023-04-23] MEDS ORDERED: Dexamethasone 10 MG/ML VIAL ONE (13:19)
[2023-04-23 13:27] LABS: Analyzer IN Cardio ER; Base Excess (BEa) 1.5 mEq/L (-2.0 to +3.0); CO2 Tension 31.5 mmHg (35.0-45.0); Calcium, Ionized (arterial) 1.16 mmol/L (1.12-1.30); Carboxyhemoglobin (COHb) 0.8 gm% (0.0-3.0); Hematocrit-ABG 41 % (42.0-52.0); Hemoglobin (Hb) 13.9 g/dL (14.0-18.0); Potassium - ABG Lab 3.93 mmol/L (3.70-5.30); pH, Arterial 7.499 (7.35-7.45)
[2023-04-23 13:28] LABS: O2 Tension (PaO2), arterial 57.5 mmHg (> 70.0); Puncture Site RRA
[2023-04-23 13:34] LABS: ALT (SGPT) 32 U/L (8-55); AST (SGOT) 26 U/L (5-34); Albumin 3.7 g/dL (3.4-4.8); Alkaline Phosphatase 103 U/L (40-110); Anion Gap 17 mmol/L (10-20); BUN (Urea Nitrogen) 17 mg/dL (8.4-25.7); Bilirubin, Total 0.7 mg/dL (0.2-1.2); Calc. Creatinine Clearance 0 mL/min (70-130); Calcium 9.5 mg/dL (7.8-10.44); Carbon Dioxide 26 mmol/L (23-31); Chloride 93 mmol/L (98-107); Estimated GFR 90; Globulin 2.4 g/dL (2.4-3.5); Glucose 89 mg/dL (83-110); Potassium 4.5 mmol/L (3.5-5.1); Protein, Total 6.1 g/dL (5.8-8.1); Sodium 131 mmol/L (136-145)
[2023-04-23 13:36] LABS: Troponin I 0.011 ng/mL (< 0.028)
[2023-04-23 14:23] LABS: SARS-CoV-2 NAA Rapid Test Not Detected (NotDetected)
[2023-04-23 15:12] LABS: Band 2 % (5-11); Burr Cells SLIGHT = 2-5 cells HPF (0-1); CellaVision Operator ID LAB.KB; Eosinophils 2 % (0-10); Lymphocytes 32 % (21-51); Monocytes 2 % (0-10); Neutrophil 61 % (42-75); Platelet Adequacy Comment Platelets Normal; Polychromasia SLIGHT = 2-3 cells HPF (0-2); Smudge Cells 15.3 %; Total Cell Count 98
[2023-04-23] MEDS ORDERED: Acetaminophen 325 MG TAB PO PRN (15:45)
[2023-04-23] MEDS ORDERED: Ondansetron PF 4 MG/2 ML Vial IVP PRN ×2 (15:45→16:53)
[2023-04-23] MEDS ORDERED: Ondansetron ODT 4 MG TAB SL PRN (15:45)
[2023-04-23] MEDS ORDERED: Acetaminophen 650 MG Suppository PR PRN (16:53)
[2023-04-23] MEDS ORDERED: Ondansetron ODT 4 MG TAB PO PRN (16:53)
[2023-04-23 17:16] LABS: Bacteria/HPF None Seen HPF (None Seen); Bilirubin Negative (Negative); Blood, Urine Negative (Negative); CAUTI Indications for Culture Acute Hematuria; Clarity Clear (Clear); Glucose, Urine (Dipstick) Normal (Negative); Ketone, Urine Negative (Negative); Leukocyte Negative Leu/uL (Negative); Nitrite Negative (Negative); Protein, Urine (Dipstick) 10 mg/dL (Neg-Trace); RBC/HPF 0-3 HPF (0-3); Specific Gravity, Urine 1.042 (1.002-1.036); Squamous Epithelial None Seen HPF (0-3); Urobilinogen Normal mg/dL (Less than 2); WBC/HPF 0-3 HPF (0-3)
[2023-04-23 17:20] LABS: Urine Culture Reflex No No
[2023-04-23 17:31] VITALS: BMI 20.5
[2023-04-23 17:52] LABS: Troponin I 0.016 ng/mL (< 0.028)
[2023-04-23] MEDS: Sodium Chloride 0.9% 1,000 ML IV SCH (18:29)
[2023-04-23 18:44] LABS: Legionella Urinary Ag Negative (Negative)
[2023-04-23 18:45] LABS: Strep pneumo Urine Ag NEGATIVE (NEGATIVE)
[2023-04-23] MEDS: Ipratropium/Albuterol 3 ML NEB NEB SCH (19:03)
[2023-04-23] MEDS: Mometasone/Formoterol 200/5 60 PUFF INH SCH (19:04)
[2023-04-23] MEDS: Vancomycin 1 GM in Premix Bag 1 BAG IVPB SCH (20:11)
[2023-04-23] MEDS: Benzonatate 100 MG CAP PO SCH (20:14)
[2023-04-23] MEDS: Acetaminophen 325 MG TAB PO PRN (20:18)
[2023-04-23 20:27] LABS: Troponin I 0.013 ng/mL (< 0.028)
[2023-04-24] MEDS: Ipratropium/Albuterol 3 ML NEB NEB SCH ×4 (00:47→18:23)
[2023-04-24] MEDS: Cefepime 2 GM in Sodium Chloride 0.9% 100 ML IVPB SCH ×2 (00:55→15:14)
[2023-04-24] MEDS: Sodium Chloride 0.9% 1,000 ML IV SCH (00:56)
[2023-04-24 04:05] LABS: Hematocrit 38.1 % (42.0-52.0); Hemoglobin 12.9 g/dL (14.0-18.0); Mean Corpuscular HGB CONC 33.9 g/dL (32.0-36.0); Mean Corpuscular Hemoglobin 30.9 pg (27.0-31.0); Mean Platelet Volume 9.4 fL (7.4-10.4); Platelet Count 158 10x3/uL (130-400); RBC Distribution Width 13.7 % (11.5-14.5); Red Blood Cell (RBC) Count 4.17 mill/uL (4.70-6.10); White Blood Cell (WBC) Count 7.9 10x3/uL (4.8-10.8)
[2023-04-24 04:11] LABS: Delete Auto Diff?? YES; Manual Diff?? YES; Mean Corpuscular Volume 91.4 fl (78.0-98.0)
[2023-04-24 04:28] LABS: Anion Gap 13 mmol/L (10-20); BUN (Urea Nitrogen) 17 mg/dL (8.4-25.7); Calc. Creatinine Clearance 85 mL/min (70-130); Calcium 8.9 mg/dL (7.8-10.44); Carbon Dioxide 24 mmol/L (23-31); Chloride 99 mmol/L (98-107); Estimated GFR 92; Glucose 132 mg/dL (83-110); Potassium 3.8 mmol/L (3.5-5.1); Sodium 132 mmol/L (136-145)
[2023-04-24] MEDS: Mometasone/Formoterol 200/5 60 PUFF INH SCH ×2 (06:51→18:25)
[2023-04-24 08:12] LABS: Band 6 % (5-11); CellaVision Operator ID LAB.GE; Eosinophils 1 % (0-10); Lymphocytes 1 % (21-51); Monocytes 3 % (0-10); Neutrophil 83 % (42-75); Platelet Adequacy Comment Platelets Normal; Polychromasia SLIGHT = 2-3 cells HPF (0-2); Reactive Lymphocytes 6 % (0-10); Total Cell Count 101
[2023-04-24] MEDS ORDERED: Polyethylene Glycol 3350 17 GM Packet PO SCH (09:00)
[2023-04-24] MEDS ORDERED: Dexamethasone 10 MG/ML VIAL SLOW IVP SCH (09:00)
[2023-04-24] MEDS: Acetaminophen 325 MG TAB PO PRN ×2 (11:24→20:41)
[2023-04-24] MEDS: tiZANidine HCl 4 MG TAB PO SCH (11:25)
[2023-04-24] MEDS: Benzonatate 100 MG CAP PO SCH ×3 (11:25→20:41)
[2023-04-24] MEDS: Vancomycin 1 GM in Premix Bag 1 BAG IVPB SCH (11:26)
[2023-04-24] MEDS ORDERED: Bisacodyl 10 MG SUPP PR PRN (16:34)
[2023-04-24] MEDS: Milk Of Magnesia 30 ML UDCUP PO PRN (16:58)
[2023-04-24] MEDS: Atorvastatin Calcium 40 MG TAB PO SCH (20:41)
[2023-04-24] MEDS: Senokot S 8.6-50 MG TAB PO SCH (20:41)
[2023-04-24] MEDS: Polyethylene Glycol 3350 17 GM Packet PO SCH (20:42)
[2023-04-25] MEDS: Ipratropium/Albuterol 3 ML NEB NEB SCH ×4 (00:38→19:47)
[2023-04-25] MEDS: Cefepime 2 GM in Sodium Chloride 0.9% 100 ML IVPB SCH ×2 (01:57→12:32)
[2023-04-25] MEDS: Acetaminophen 325 MG TAB PO PRN ×3 (05:41→21:15)
[2023-04-25] MEDS: Mometasone/Formoterol 200/5 60 PUFF INH SCH ×2 (06:45→19:48)
[2023-04-25] MEDS: tiZANidine HCl 4 MG TAB PO SCH (08:38)
[2023-04-25] MEDS: Senokot S 8.6-50 MG TAB PO SCH ×2 (08:38→21:14)
[2023-04-25] MEDS: guaiFENesin ER 600 MG TAB PO SCH ×2 (08:38→21:13)
[2023-04-25] MEDS: Benzonatate 100 MG CAP PO SCH ×3 (08:39→21:14)
[2023-04-25] MEDS: predniSONE 20 MG TAB PO SCH (08:39)
[2023-04-25] MEDS: Polyethylene Glycol 3350 17 GM Packet PO SCH ×2 (08:47→21:13)
[2023-04-25] MEDS ORDERED: Bisacodyl 10 MG SUPP PR SCH (15:15)
[2023-04-25] MEDS ORDERED: Milk Of Magnesia 30 ML UDCUP PO SCH (15:30)
[2023-04-25] MEDS: Atorvastatin Calcium 40 MG TAB PO SCH (21:14)
[2023-04-26] MEDS: Cefepime 2 GM in Sodium Chloride 0.9% 100 ML IVPB SCH ×2 (00:44→13:37)
[2023-04-26] MEDS: Ipratropium/Albuterol 3 ML NEB NEB SCH ×3 (00:51→12:49)
[2023-04-26] MEDS ORDERED: Oxymetazoline HCl 0.05% (30 ML BOT) NS PRN (06:23)
[2023-04-26] MEDS: Mometasone/Formoterol 200/5 60 PUFF INH SCH (06:53)
[2023-04-26] MEDS: Acetaminophen 325 MG TAB PO PRN (09:02)
[2023-04-26] MEDS: predniSONE 20 MG TAB PO SCH (09:03)
[2023-04-26] MEDS: guaiFENesin ER 600 MG TAB PO SCH (09:03)
[2023-04-26] MEDS: Benzonatate 100 MG CAP PO SCH (09:04)
[2023-04-26] MEDS: tiZANidine HCl 4 MG TAB PO SCH (09:04)
[2023-04-26] MEDS: Polyethylene Glycol 3350 17 GM Packet PO SCH (09:05)
[2023-04-26] MEDS: Senokot S 8.6-50 MG TAB PO SCH (09:05)
[2023-04-26] MEDS: Milk Of Magnesia 30 ML UDCUP PO PRN (09:05)
[2023-04-26 12:39] VITALS: BP 128/76; TEMP 98.1
== END 2023-04-26 13:35 | disposition home or self-care (01) | DRG 871 ==
LOC: ERS 12:27 → 2NO 14:50
PROVIDERS: ADMIT Internal Medicine; ATTEND Internal Medicine
PROC: 4A033R1 Measurement of Arterial Saturation, Peripheral, Percutaneous Approach (ICD-10-PCS; principal; 2023-04-23)
PROC: 3E03329 Introduction of Other Anti-infective into Peripheral Vein, Percutaneous Approach (ICD-10-PCS; 2023-04-23)
DX: A41.9 Sepsis, unspecified organism (principal); J18.9 Pneumonia, unspecified organism; J96.21 Acute and chronic respiratory failure with hypoxia; C91.10 Chronic lymphocytic leukemia of B-cell type not having achieved remission; E87.1 Hypo-osmolality and hyponatremia; J44.0 Chronic obstructive pulmonary disease with (acute) lower respiratory infection; Z79.899 Other long term (current) drug therapy; Z98.890 Other specified postprocedural states; Z87.891 Personal history of nicotine dependence; I25.10 Atherosclerotic heart disease of native coronary artery without angina pectoris; G89.29 Other chronic pain; M54.50 Low back pain, unspecified; Z88.5 Allergy status to narcotic agent; D63.8 Anemia in other chronic diseases classified elsewhere; Z82.49 Family history of ischemic heart disease and other diseases of the circulatory system; D69.6 Thrombocytopenia, unspecified; K59.00 Constipation, unspecified; I71.40 Abdominal aortic aneurysm, without rupture, unspecified; Z20.822 Contact with and (suspected) exposure to COVID-19; Z79.52 Long term (current) use of systemic steroids
CPT/HCPCS: 36415; 36600; 71045; 71275; 80048; 80053; 81001; 82805; 83605; 83880; 84145; 84484; 85025; 85610; 85730; 87040; 87070; 87205; 87449; 87899; 93005; 94640; 94760; 96365; 96375; J0692; J1100; J1650; J3370-JW; J3490; J7050; J7512; J7620; Q9967

== ENCOUNTER 2023-05-04 08:50 | Outpatient (CLI) | payer MEDICARE | END 2023-05-04 08:51 | disposition home or self-care (01) | LOC: RAD 08:50 | PROVIDERS: ATTEND Internal Medicine Critical Care Medicine | DX: R06.00 Dyspnea, unspecified (principal); J98.6 Disorders of diaphragm; A81.9 Atypical virus infection of central nervous system, unspecified | CPT/HCPCS: 71046 ==

== ENCOUNTER 2023-06-15 13:05 | Outpatient (CLI) | payer MEDICARE | END 2023-06-15 13:06 | disposition home or self-care (01) | LOC: RAD 13:05 | PROVIDERS: ATTEND Internal Medicine Critical Care Medicine | DX: R06.00 Dyspnea, unspecified (principal) | CPT/HCPCS: 71046 ==

== ENCOUNTER 2023-09-25 20:13 | Emergency (ER) | payer MEDICARE ==
[2023-09-25] MEDS ORDERED: HYDROcodone/Acetaminophen 5/325 mg Tablet ONE (22:29)
[2023-09-25] MEDS ORDERED: Amoxicillin/Potassium Clav 875 MG TAB ONE (22:29)
== END 2023-09-25 23:04 | disposition home or self-care (01) ==
LOC: ERS 20:13
DX: S61.451A Open bite of right hand, initial encounter (principal); L03.113 Cellulitis of right upper limb; J44.9 Chronic obstructive pulmonary disease, unspecified; Z87.891 Personal history of nicotine dependence; W54.0XXA Bitten by dog, initial encounter

== ENCOUNTER 2023-12-19 08:57 | Outpatient (CLI) | payer MEDICARE | END 2023-12-19 08:58 | disposition home or self-care (01) | LOC: BICRAD 08:57 | PROVIDERS: ATTEND Family Medicine | DX: J22 Unspecified acute lower respiratory infection (principal) | CPT/HCPCS: 71046 ==

== ENCOUNTER 2024-03-04 13:24 | Outpatient (CLI) | payer MEDICARE ==
[~2024-03-04 13:24] MED LIST changes: +Iopamidol 370 76% 100 ML VIAL ONE; -Iopamidol-370 76% 500 ML MDV (1 ML CHARGE) ONE
== END 2024-03-04 13:25 | disposition home or self-care (01) ==
LOC: BICCT 13:24
PROVIDERS: ATTEND Physician Assistant
DX: I73.9 Peripheral vascular disease, unspecified (principal)
CPT/HCPCS: 75635; 82565; Q9967

== ENCOUNTER 2024-03-07 09:19 | Inpatient (IN) | payer MEDICARE ==
[2024-03-07] MEDS ORDERED: fentaNYL 50 mcg/mL 1 mL Vial ONE ×6 (09:45→19:18)
[2024-03-07 09:55] LABS: Hematocrit 41.8 % (42.0-52.0); Hemoglobin 14.2 g/dL (14.0-18.0); Mean Corpuscular Volume 88.2 fL (78.0-98.0); Mean Platelet Volume 10.2 fL (7.4-10.4); Platelet Count 134 10x3/uL (130-400); RBC Distribution Width 13.7 % (11.5-14.5); Red Blood Cell (RBC) Count 4.74 mill/uL (4.70-6.10)
[2024-03-07 10:10] LABS: ALT (SGPT) 22 U/L (8-55); AST (SGOT) 24 U/L (5-34); Albumin 4.2 g/dL (3.4-4.8); Alkaline Phosphatase 133 U/L (40-110); Anion Gap 12 mmol/L (10-20); BUN (Urea Nitrogen) 20 mg/dL (8.4-25.7); Bilirubin, Total 0.5 mg/dL (0.2-1.2); Calc. Creatinine Clearance 0 mL/min (70-130); Calcium 9.5 mg/dL (7.8-10.44); Carbon Dioxide 25 mmol/L (23-31); Chloride 102 mmol/L (98-107); Estimated GFR 78; Globulin 2.7 g/dL (2.4-3.5); Glucose 101 mg/dL (83-110); Lipase 26 U/L (8-78); Potassium 4.1 mmol/L (3.5-5.1); Protein, Total 6.9 g/dL (5.8-8.1); Sodium 135 mmol/L (136-145)
[2024-03-07 10:19] LABS: INR-International Normal Ratio 1.1; Prothrombin Time 14.4 sec (12.0-14.7)
[2024-03-07 10:58] LABS: Eosinophils 3 % (0-10); Lymphocytes 40 % (21-51); Monocytes 6 % (0-10); Neutrophil 47 % (42-75); Platelet Adequacy Comment Platelets Normal; RBC Morphology Within Normal Limits; Reactive Lymphocytes 5 % (0-10)
[2024-03-07] MEDS ORDERED: Glucagon 1 MG/ML KIT IM PRN (11:56)
[2024-03-07] MEDS ORDERED: Ipratropium/Albuterol 3 ML NEB NEB PRN ×2 (11:56→17:28)
[2024-03-07] MEDS ORDERED: Ondansetron PF 4 MG/2 ML Vial IVP PRN ×2 (11:56→17:28)
[2024-03-07] MEDS ORDERED: Mag-Al 1200 mg/1200 mg/30 ML UDCUP PO PRN (11:56)
[2024-03-07] MEDS ORDERED: hydrALAZINE 20 MG/ML VIAL SLOW IVP PRN (11:56)
[2024-03-07] MEDS ORDERED: Dextrose 50% Abboject 50 ML SYRINGE SLOW IVP PRN (11:56)
[2024-03-07] MEDS ORDERED: Dextrose 5% in Water 1,000 ML IV PRN (11:56)
[2024-03-07] MEDS ORDERED: oxyCODONE 5 MG TAB PO PRN (11:57)
[2024-03-07] MEDS ORDERED: metroNIDAZOLE 500 MG in Premix 1 BAG IVPB SCH (12:30)
[2024-03-07] MEDS ORDERED: CEFAZOLIN 2 GM in Sodium Chloride 0.9% 100 ML IVPB SCH (12:30)
[2024-03-07 12:51] LABS: Bacteria/HPF None Seen HPF (None Seen); Bilirubin Negative (Negative); Blood, Urine Negative (Negative); CAUTI Indications for Culture Pelvic or flank pain; Clarity Clear (Clear); Glucose, Urine (Dipstick) Normal (Negative); Ketone, Urine Negative (Negative); Leukocyte Negative Leu/uL (Negative); Nitrite Negative (Negative); Protein, Urine (Dipstick) Negative (Neg-Trace); RBC/HPF 0-3 HPF (0-3); Specific Gravity, Urine 1.047 (1.002-1.036); Squamous Epithelial None Seen HPF (0-3); Urobilinogen Normal mg/dL (Less than 2); WBC/HPF None Seen HPF (0-3)
[2024-03-07 13:04] LABS: Urine Culture Reflex No No
[2024-03-07] MEDS ORDERED: Etomidate 40 MG (20 mL) VIAL ONE (14:15)
[2024-03-07] MEDS ORDERED: fentaNYL PF 100 MCG/2 ML SYRINGE ONE (14:18)
[2024-03-07] MEDS ORDERED: PROPOFOL 20 ML ONE (14:18)
[2024-03-07] MEDS ORDERED: Rocuronium Bromide 10 MG/ML (10ML VIAL) ONE (14:19)
[2024-03-07] MEDS ORDERED: Lidocaine 1% PF 5 ML VIAL ONE (14:19)
[2024-03-07] MEDS ORDERED: Ondansetron PF 4 MG/2 ML Vial ONE (14:19)
[2024-03-07] MEDS ORDERED: Dexamethasone 20 MG/5 ML VIAL ONE (14:19)
[2024-03-07] MEDS ORDERED: SUCCINYLCHOLINE/SOD CL,ISO/PF 200 MG/10 ML SYRINGE FS ONE (14:19)
[2024-03-07] MEDS ORDERED: Lidocaine 2% 6 ML (Jelly) SYR ONE (14:22)
[2024-03-07] MEDS ORDERED: Famotidine/PF 20 mg/2ml Vial ONE (14:26)
[2024-03-07] MEDS ORDERED: Ipratropium/Albuterol 3 ML NEB ONE (14:26)
[2024-03-07] MEDS ORDERED: EPINEPHrine 1 MG/ML VIAL ONE (14:37)
[2024-03-07] MEDS ORDERED: Bupivacaine 0.25% HCL 30 ML VIAL ONE (14:37)
[2024-03-07] MEDS ORDERED: CEFAZOLIN 2 GM VIAL ONE (14:46)
[2024-03-07] MEDS ORDERED: metroNIDAZOLE 500 MG (100 mL) BAG ONE (14:46)
[2024-03-07] MEDS ORDERED: Sodium Chloride 0.9% 100 ML ONE (14:46)
[2024-03-07] MEDS ORDERED: Sodium Chloride 0.9% 250 ML 250 ML ONE (15:17)
[2024-03-07] MEDS ORDERED: fentaNYL 50 mcg/mL 1 mL Vial SLOW IVP PRN (15:49)
[2024-03-07] MEDS ORDERED: ePHEDrine Sulfate 50 MG/10 ML VIAL ONE (16:03)
[2024-03-07] MEDS ORDERED: SUGAMMADEX SODIUM 200 MG/2 ML VIAL ONE (16:34)
[2024-03-07] MEDS ORDERED: FENTANYL 500 MCG/10 ML VIAL 2,000 MCG in Sodium Chloride 0.9% 60 ML IV PRN (16:48)
[2024-03-07] MEDS ORDERED: diphenhydrAMINE 25 MG CAP PO PRN (16:48)
[2024-03-07] MEDS ORDERED: Promethazine HCl 25 MG/ML VIAL IM PRN ×2 (16:48)
[2024-03-07] MEDS ORDERED: Naloxone HCl 0.4 mg/ml Vial IV PRN (16:48)
[2024-03-07] MEDS ORDERED: Ondansetron HCl/PF 4 MG/2 ML Vial IVP PRN (16:48)
[2024-03-07] MEDS ORDERED: diphenhydrAMINE 50 MG/ML VIAL IM PRN (16:48)
[2024-03-07] MEDS ORDERED: Communication Order-Pharmacy FS SCH (17:00)
[2024-03-07] MEDS ORDERED: Fentanyl CADD 100 ML IVPB SCH (17:15)
[2024-03-07] MEDS ORDERED: Methocarbamol 500 MG TAB PO PRN (17:30)
[2024-03-07] MEDS ORDERED: HYDROcodone/Acetaminophen 5/325 mg Tablet PO PRN (17:31)
[2024-03-07] MEDS ORDERED: Ketorolac Tromethamine 30 MG (1 mL) VIAL ONE (19:18)
[2024-03-07] MEDS ORDERED: Famotidine 20 MG TAB PO SCH ×2 (21:00)
[2024-03-07] MEDS ORDERED: Famotidine/PF 20 mg/2ml Vial SLOW IVP SCH (21:00)
[2024-03-07] MEDS: Ketorolac Tromethamine 30 MG (1 mL) VIAL IVP SCH ×2 (21:34→21:40)
[2024-03-07] MEDS: Famotidine 20 MG TAB PO SCH (22:02)
[2024-03-07] MEDS: metroNIDAZOLE 500 MG in Premix 1 BAG IVPB SCH (22:02)
[2024-03-07 22:04] VITALS: BMI 24.0
[2024-03-07] MEDS: Famotidine/PF 20 mg/2ml Vial SLOW IVP SCH (22:06)
[2024-03-07] MEDS: Ondansetron PF 4 MG/2 ML Vial IVP PRN (22:44)
[2024-03-07] MEDS: D5 1/2 NS w/20 mEq KCL 1,000 ML IV SCH (23:09)
[2024-03-08] MEDS: CEFAZOLIN 2 GM in Sodium Chloride 0.9% 100 ML IVPB SCH (00:52)
[2024-03-08 05:20] LABS: BUN (Urea Nitrogen) 24 mg/dL (8.4-25.7); Calc. Creatinine Clearance 75 mL/min (70-130); Calcium 8.6 mg/dL (7.8-10.44); Carbon Dioxide 23 mmol/L (23-31); Estimated GFR 76; Glucose 157 mg/dL (83-110)
[2024-03-08 05:21] LABS: #Basophils Less than 0.03 10x3/uL (0.0-0.2); #Eosinphils Less than 0.03 10x3/uL (0.0-0.7); %Basophils 0.1 % (0.0-1.0); %Monocytes 7.5 % (0.0-10.0); %Neutrophils 69.1 % (42.0-75.0); Hematocrit 31.6 % (42.0-52.0); Hemoglobin 10.7 g/dL (14.0-18.0); Mean Corpuscular HGB CONC 33.9 g/dL (32.0-36.0); Mean Corpuscular Volume 91.6 fL (78.0-98.0); Mean Platelet Volume 10.2 fL (7.4-10.4); Platelet Count 113 10x3/uL (130-400); RBC Distribution Width 14.1 % (11.5-14.5); Red Blood Cell (RBC) Count 3.45 mill/uL (4.70-6.10)
[2024-03-08 05:44] LABS: Anion Gap 13 mmol/L (10-20); Chloride 104 mmol/L (98-107); Potassium 4.5 mmol/L (3.5-5.1); Sodium 133 mmol/L (136-145)
[2024-03-08] MEDS: Aspirin 81 mg Enteric Coated Tablet PO SCH (08:39)
[2024-03-08] MEDS: Atorvastatin Calcium 40 MG TAB PO SCH (08:39)
[2024-03-08] MEDS: Clopidogrel Bisulfate 75 MG TAB PO SCH (08:40)
[2024-03-08] MEDS: Isosorbide Mononitrate 30 MG ER.TAB PO SCH (08:40)
[2024-03-08] MEDS: Enoxaparin 30 MG (0.3 mL) SYRINGE SC SCH (08:40)
[2024-03-08 12:16] LABS: Hematocrit 30.4 % (42.0-52.0); Hemoglobin 10.1 g/dL (14.0-18.0)
[2024-03-08] MEDS: HYDROcodone/Acetaminophen 5/325 mg Tablet PO PRN (12:18)
[2024-03-08] MEDS: fentaNYL 50 mcg/mL 1 mL Vial SLOW IVP PRN (13:24)
[2024-03-08] MEDS: Ipratropium/Albuterol 3 ML NEB NEB SCH (14:51)
[2024-03-08] MEDS: Mometasone 100 MCG HFA INHALER (RT USE) INH SCH (14:57)
[2024-03-08] MEDS: diphenhydrAMINE 50 MG/ML VIAL IVP PRN (15:46)
[2024-03-09 05:17] LABS: Hematocrit 27.8 % (42.0-52.0); Hemoglobin 9.2 g/dL (14.0-18.0); Mean Corpuscular HGB CONC 33.1 g/dL (32.0-36.0); Mean Corpuscular Volume 93.6 fL (78.0-98.0); Platelet Count 88 10x3/uL (130-400); RBC Distribution Width 14.5 % (11.5-14.5); Red Blood Cell (RBC) Count 2.97 mill/uL (4.70-6.10)
[2024-03-09 05:46] LABS: Anion Gap 9 mmol/L (10-20); BUN (Urea Nitrogen) 19 mg/dL (8.4-25.7); Calc. Creatinine Clearance 91 mL/min (70-130); Calcium 8.2 mg/dL (7.8-10.44); Carbon Dioxide 24 mmol/L (23-31); Chloride 102 mmol/L (98-107); Estimated GFR 90; Glucose 108 mg/dL (83-110); Potassium 3.9 mmol/L (3.5-5.1); Sodium 131 mmol/L (136-145)
[2024-03-09 05:52] LABS: Lymphocytes 32 % (21-51); Monocytes 6 % (0-10); Neutrophil 62 % (42-75); Platelet Adequacy Comment Platelets Decreased; RBC Morphology Within Normal Limits; Smudge Cells 12.7 %
[2024-03-10] MEDS: Enoxaparin 40 MG (0.4 mL) SYRINGE SC SCH (08:24)
[2024-03-10] MEDS: Acetaminophen 325 MG TAB PO PRN (08:31)
[2024-03-11 05:40] LABS: Hematocrit 29.7 % (42.0-52.0); Hemoglobin 9.9 g/dL (14.0-18.0); Mean Corpuscular HGB CONC 33.3 g/dL (32.0-36.0); Mean Corpuscular Hemoglobin 30.8 pg (27.0-31.0); Mean Corpuscular Volume 92.5 fL (78.0-98.0); Mean Platelet Volume 10.4 fL (7.4-10.4); Platelet Count 107 10x3/uL (130-400); RBC Distribution Width 14.3 % (11.5-14.5); Red Blood Cell (RBC) Count 3.21 mill/uL (4.70-6.10)
[2024-03-11 06:13] LABS: Eosinophils 1 % (0-10); Lymphocytes 28 % (21-51); Monocytes 6 % (0-10); Neutrophil 65 % (42-75); Platelet Adequacy Comment Platelets Decreased; RBC Morphology Within Normal Limits
[2024-03-11 06:19] LABS: Anion Gap 10 mmol/L (10-20); BUN (Urea Nitrogen) 9 mg/dL (8.4-25.7); Calc. Creatinine Clearance 102 mL/min (70-130); Calcium 8.6 mg/dL (7.8-10.44); Carbon Dioxide 24 mmol/L (23-31); Chloride 104 mmol/L (98-107); Estimated GFR 93; Glucose 117 mg/dL (83-110); Potassium 4.5 mmol/L (3.5-5.1); Sodium 133 mmol/L (136-145)
[2024-03-11] MEDS ORDERED: traMADol HCl 50 MG TAB PO PRN (09:44)
[2024-03-11] MEDS: Acetaminophen 500 MG TAB PO SCH (12:15)
[2024-03-11] MEDS ORDERED: Acetaminophen 325 MG TAB PO SCH (13:00)
[2024-03-11] MEDS: Calcium Carbonate 500 MG ChewTAB PO PRN (14:23)
[2024-03-11] MEDS: Ondansetron PF 4 MG/2 ML Vial IVP SCH (17:35)
[2024-03-11] MEDS ORDERED: Ondansetron ODT 4 MG TAB PO PRN (17:38)
[2024-03-11] MEDS: Ondansetron PF 4 MG/2 ML Vial IVP PRN (21:35)
[2024-03-12] MEDS: Losartan 25 MG TAB PO SCH (08:33)
[2024-03-12 13:34] VITALS: BP 133/78; TEMP 97.5
== END 2024-03-12 12:55 | disposition home or self-care (01) | DRG 330 ==
LOC: ERS 09:19 → SDC/OP 12:41 → MSONC 21:15
PROVIDERS: ADMIT Surgery; ATTEND Surgery
PROC: 0DB80ZZ Excision of Small Intestine, Open Approach (ICD-10-PCS; principal; 2024-03-07)
PROC: 0DJ60ZZ Inspection of Stomach, Open Approach (ICD-10-PCS; 2024-03-07)
PROC: 0DN80ZZ Release Small Intestine, Open Approach (ICD-10-PCS; 2024-03-07)
PROC: 3E033XZ Introduction of Vasopressor into Peripheral Vein, Percutaneous Approach (ICD-10-PCS; 2024-03-07)
DX: K56.609 Unspecified intestinal obstruction, unspecified as to partial versus complete obstruction (principal); C91.10 Chronic lymphocytic leukemia of B-cell type not having achieved remission; K56.2 Volvulus; J42 Unspecified chronic bronchitis; D69.6 Thrombocytopenia, unspecified; I25.10 Atherosclerotic heart disease of native coronary artery without angina pectoris; I71.40 Abdominal aortic aneurysm, without rupture, unspecified; Z98.890 Other specified postprocedural states; Z87.891 Personal history of nicotine dependence; Z88.5 Allergy status to narcotic agent
CPT/HCPCS: 36415; 71045; 71275; 74174; 75635; 80048; 80053; 81001; 82565; 83690; 85025; 85610; 85730; 86850; 86900; 86901; 88307; 93005; 94640; 94664; 96374; 96376; A4314; A4649; J0171; J0665; J1100; J1200; J1650; J1885; J2405; J2704; J3010; J3480; J3490; J7050; J7620; Q9967

== ENCOUNTER 2024-06-27 12:24 | Outpatient (CLI) | payer MEDICARE | END 2024-06-27 12:25 | disposition home or self-care (01) | LOC: RAD 12:24 | PROVIDERS: ATTEND Internal Medicine Critical Care Medicine | DX: R06.00 Dyspnea, unspecified (principal) | CPT/HCPCS: 71046 ==

== ENCOUNTER 2024-08-26 08:17 | Emergency (ER) | payer MEDICARE ==
[2024-08-26] MEDS ORDERED: HYDROcodone/Acetaminophen 5/325 mg Tablet ONE (08:51)
== END 2024-08-26 09:21 | disposition home or self-care (01) ==
LOC: ERS 08:17
DX: L03.113 Cellulitis of right upper limb (principal)
CPT/HCPCS: 99283

== ENCOUNTER 2025-02-28 23:58 | Inpatient (IN) | payer MEDICARE ==
[2025-03-01 00:39] LABS: #Basophils Less than 0.03 10x3/uL (0.0-0.2); #Eosinophils 0.12 10x3/uL (0.0-0.7); #Monocytes 0.69 10x3/uL (0.11-0.59); #Neutrophils 9.54 10x3/uL (1.40-6.50); %Basophils 0.1 % (0.0-1.0); %Eosinophils 0.9 % (0.0-10.0); %Lymphocytes 24.9 % (21.0-51.0); %Monocytes 5.0 % (0.0-10.0); %Neutrophils 68.7 % (42.0-75.0); Hematocrit 35.0 % (42.0-52.0); Hemoglobin 11.3 g/dL (14.0-18.0); Mean Corpuscular Hemoglobin 30.0 pg (27.0-31.0); Mean Corpuscular Volume 92.8 fL (78.0-98.0); Platelet Count 251 10x3/uL (130-400); Red Blood Cell (RBC) Count 3.77 mill/uL (4.70-6.10); White Blood Cell (WBC) Count 13.88 10x3/uL (4.8-10.8)
[2025-03-01] MEDS ORDERED: Ondansetron PF 4 MG/2 ML Vial ONE ×2 (00:44→03:29)
[2025-03-01 00:52] LABS: INR-International Normal Ratio 1.2; PTT 33.7 sec (22.9-36.1); Prothrombin Time 15.3 sec (12.0-14.7)
[2025-03-01 00:55] LABS: ALT (SGPT) 23 U/L (Less than 45); AST (SGOT) 26 U/L (11-34); Albumin 4.1 g/dL (3.1-4.5); Alkaline Phosphatase 178 U/L (40-110); Anion Gap 15 mmol/L (10-20); BUN (Urea Nitrogen) 25 mg/dL (8.4-25.7); Bilirubin, Total 1.0 mg/dL (0.3-1.2); Calc. Creatinine Clearance 0 mL/min (70-130); Calcium 9.5 mg/dL (7.8-10.44); Carbon Dioxide 24 mmol/L (23-31); Chloride 100 mmol/L (98-107); Globulin 2.6 g/dL (2.4-3.5); Glucose 112 mg/dL (83-110); Lipase 26 U/L (8-78); Potassium 4.3 mmol/L (3.5-5.1); Sodium 135 mmol/L (136-145)
[2025-03-01 01:00] LABS: Troponin I Less than 0.010 ng/mL (< 0.028)
[2025-03-01] MEDS ORDERED: Azithromycin 500 MG VIAL ONE (03:27)
[2025-03-01] MEDS ORDERED: cefTRIAXone (ROCEPHIN) 1 GM VIAL ONE (03:28)
[2025-03-01] MEDS ORDERED: Ondansetron PF 4 MG/2 ML Vial IVP PRN (03:45)
[2025-03-01] MEDS: Ketorolac Tromethamine 30 MG (1 mL) VIAL IVP PRN (05:31)
[2025-03-01 05:48] VITALS: BMI 22.4
[2025-03-01] MEDS: Acetaminophen 325 MG TAB PO PRN (10:31)
[2025-03-01] MEDS: Enoxaparin 40 MG (0.4 mL) SYRINGE SC SCH (10:33)
[2025-03-01] MEDS ORDERED: Iopamidol-370 76% 500 ML MDV (1 ML CHARGE) ONE (13:40)
[2025-03-01] MEDS ORDERED: MD-Gastroview 120 ML BOT ONE (14:01)
[2025-03-01] MEDS: Mometasone 200 MCG/Formoterol 5 MCG 120 PUFF INHALER INH SCH (19:16)
[2025-03-02] MEDS: cefTRIAXone\\ROCEPHIN 2 GM in Sodium Chloride 0.9% 100 ML IVPB SCH (03:27)
[2025-03-02] MEDS: Ketorolac Tromethamine 30 MG (1 mL) VIAL IVP SCH (04:05)
[2025-03-02] MEDS: Azithromycin 500 MG in Sodium Chloride 0.9% 250 ML 250 ML IVPB SCH (04:06)
[2025-03-02 05:02] LABS: Hematocrit 31.5 % (42.0-52.0); Hemoglobin 10.2 g/dL (14.0-18.0); Mean Corpuscular Hemoglobin 30.4 pg (27.0-31.0); Mean Corpuscular Volume 93.8 fL (78.0-98.0); Platelet Count 161 10x3/uL (130-400); Red Blood Cell (RBC) Count 3.36 mill/uL (4.70-6.10); White Blood Cell (WBC) Count 8.12 10x3/uL (4.8-10.8)
[2025-03-02 05:41] LABS: Platelet Adequacy Comment Platelets Normal; RBC Morphology Within Normal Limits; Smudge Cells 5.9 %
[2025-03-02 06:16] LABS: Chloride 101 mmol/L (98-107); Potassium 3.7 mmol/L (3.5-5.1); Sodium 139 mmol/L (136-145)
[2025-03-02 06:17] LABS: Calcium 9.7 mg/dL (7.8-10.44)
[2025-03-02 06:18] LABS: Glucose 113 mg/dL (83-110)
[2025-03-02 06:19] LABS: Anion Gap 17 mmol/L (10-20); Carbon Dioxide 25 mmol/L (23-31)
[2025-03-02 06:21] LABS: Calc. Creatinine Clearance 69 mL/min (70-130)
[2025-03-02 06:22] LABS: BUN (Urea Nitrogen) 28 mg/dL (8.4-25.7)
[2025-03-02 06:23] LABS: Magnesium 2.2 mg/dL (1.6-2.6)
[2025-03-02] MEDS ORDERED: fentaNYL PF 100 MCG/2 ML SYRINGE ONE ×2 (11:27→12:36)
[2025-03-02] MEDS ORDERED: Lidocaine 1% PF 5 ML VIAL ONE (11:27)
[2025-03-02] MEDS ORDERED: PROPOFOL 20 ML ONE (11:27)
[2025-03-02] MEDS ORDERED: Rocuronium Bromide 10 MG/ML (10ML VIAL) ONE (12:08)
[2025-03-02] MEDS ORDERED: CEFAZOLIN 1 GM VIAL ONE (12:20)
[2025-03-02] MEDS ORDERED: Ondansetron PF 4 MG/2 ML Vial ONE (12:35)
[2025-03-02] MEDS ORDERED: PHENYLEPHRINE-NS 100 MCG/ML 10 ML SYRINGE ONE (12:52)
[2025-03-02] MEDS ORDERED: Oxymetazoline HCl 0.05% (30 ML BOT) ONE (13:24)
[2025-03-02] MEDS ORDERED: SUGAMMADEX SODIUM 200 MG/2 ML VIAL ONE (14:00)
[2025-03-03] MEDS ORDERED: GUAIFENESIN SF SOLN 200 MG/10 ML UDCUP PO PRN (00:44)
[2025-03-03] MEDS: Benzonatate 100 MG CAP PO PRN (04:49)
[2025-03-03 07:52] LABS: ALT (SGPT) 11 U/L (Less than 45); AST (SGOT) 19 U/L (11-34); Albumin 3.3 g/dL (3.1-4.5); Alkaline Phosphatase 129 U/L (40-110); Anion Gap 13 mmol/L (10-20); BUN (Urea Nitrogen) 32 mg/dL (8.4-25.7); Bilirubin, Total 0.5 mg/dL (0.3-1.2); Calc. Creatinine Clearance 86 mL/min (70-130); Calcium 8.4 mg/dL (7.8-10.44); Carbon Dioxide 26 mmol/L (23-31); Chloride 105 mmol/L (98-107); Globulin 2.2 g/dL (2.4-3.5); Glucose 101 mg/dL (83-110); Potassium 3.9 mmol/L (3.5-5.1); Sodium 140 mmol/L (136-145)
[2025-03-03 08:07] LABS: Hematocrit 31.2 % (42.0-52.0); Hemoglobin 10.0 g/dL (14.0-18.0); Mean Corpuscular Hemoglobin 30.4 pg (27.0-31.0); Mean Corpuscular Volume 94.8 fL (78.0-98.0); Platelet Count 181 10x3/uL (130-400); Red Blood Cell (RBC) Count 3.29 mill/uL (4.70-6.10); White Blood Cell (WBC) Count 8.39 10x3/uL (4.8-10.8)
[2025-03-03 09:51] LABS: Burr Cells SLIGHT = 2-5 cells HPF (0-1); Platelet Adequacy Comment Platelets Normal; Polychromasia SLIGHT = 2-3 cells HPF (0-2); Schistocytes SLIGHT = 2-5 cells HPF (0-1); Smudge Cells 7.8 %
[2025-03-04 05:06] LABS: Hematocrit 33.3 % (42.0-52.0); Hemoglobin 10.1 g/dL (14.0-18.0); Mean Corpuscular Hemoglobin 28.9 pg (27.0-31.0); Mean Corpuscular Volume 95.1 fL (78.0-98.0); Platelet Count 142 10x3/uL (130-400); Red Blood Cell (RBC) Count 3.50 mill/uL (4.70-6.10); White Blood Cell (WBC) Count 5.16 10x3/uL (4.8-10.8)
[2025-03-04 05:12] LABS: ALT (SGPT) 10 U/L (Less than 45); AST (SGOT) 19 U/L (11-34); Albumin 3.1 g/dL (3.1-4.5); Alkaline Phosphatase 123 U/L (40-110); Anion Gap 12 mmol/L (10-20); BUN (Urea Nitrogen) 26 mg/dL (8.4-25.7); Bilirubin, Total 0.6 mg/dL (0.3-1.2); Calc. Creatinine Clearance 104 mL/min (70-130); Calcium 8.1 mg/dL (7.8-10.44); Carbon Dioxide 25 mmol/L (23-31); Chloride 106 mmol/L (98-107); Globulin 2.1 g/dL (2.4-3.5); Glucose 89 mg/dL (83-110); Potassium 3.7 mmol/L (3.5-5.1); Sodium 139 mmol/L (136-145)
[2025-03-04 05:36] LABS: Platelet Adequacy Comment Platelets Normal; RBC Morphology Within Normal Limits; Smudge Cells 9.8 %
[2025-03-04 17:01] LABS: Hematocrit 32.7 % (42.0-52.0); Hemoglobin 10.1 g/dL (14.0-18.0)
[2025-03-05 05:18] LABS: Hematocrit 31.3 % (42.0-52.0); Hemoglobin 10.1 g/dL (14.0-18.0); Mean Corpuscular Hemoglobin 30.4 pg (27.0-31.0); Mean Corpuscular Volume 94.3 fL (78.0-98.0); Platelet Count 136 10x3/uL (130-400); Red Blood Cell (RBC) Count 3.32 mill/uL (4.70-6.10); White Blood Cell (WBC) Count 4.15 10x3/uL (4.8-10.8)
[2025-03-05 05:35] LABS: Anisocytosis SLIGHT = 6-15 cells HPF (0-5); Platelet Adequacy Comment Platelets Normal; Polychromasia SLIGHT = 2-3 cells HPF (0-2)
[2025-03-05 05:43] LABS: ALT (SGPT) 10 U/L (Less than 45); AST (SGOT) 17 U/L (11-34); Albumin 3.0 g/dL (3.1-4.5); Alkaline Phosphatase 115 U/L (40-110); Anion Gap 11 mmol/L (10-20); BUN (Urea Nitrogen) 17 mg/dL (8.4-25.7); Bilirubin, Total 0.6 mg/dL (0.3-1.2); Calc. Creatinine Clearance 115 mL/min (70-130); Calcium 7.8 mg/dL (7.8-10.44); Carbon Dioxide 23 mmol/L (23-31); Chloride 105 mmol/L (98-107); Globulin 1.9 g/dL (2.4-3.5); Glucose 93 mg/dL (83-110); Magnesium 1.9 mg/dL (1.6-2.6); Potassium 3.8 mmol/L (3.5-5.1); Sodium 135 mmol/L (136-145)
[2025-03-05 10:09] VITALS: BMI 22.4
[2025-03-06 05:29] LABS: ALT (SGPT) 9 U/L (Less than 45); AST (SGOT) 19 U/L (11-34); Albumin 3.1 g/dL (3.1-4.5); Alkaline Phosphatase 124 U/L (40-110); Anion Gap 10 mmol/L (10-20); BUN (Urea Nitrogen) 13 mg/dL (8.4-25.7); Bilirubin, Total 0.5 mg/dL (0.3-1.2); Calc. Creatinine Clearance 84 mL/min (70-130); Calcium 8.3 mg/dL (7.8-10.44); Carbon Dioxide 25 mmol/L (23-31); Chloride 105 mmol/L (98-107); Globulin 2.2 g/dL (2.4-3.5); Glucose 101 mg/dL (83-110); Magnesium 1.9 mg/dL (1.6-2.6); Potassium 3.9 mmol/L (3.5-5.1); Sodium 136 mmol/L (136-145)
[2025-03-06 05:46] LABS: Hematocrit 34.1 % (42.0-52.0); Hemoglobin 10.9 g/dL (14.0-18.0); Mean Corpuscular Hemoglobin 29.9 pg (27.0-31.0); Mean Corpuscular Volume 93.4 fL (78.0-98.0); Platelet Count 141 10x3/uL (130-400); Red Blood Cell (RBC) Count 3.65 mill/uL (4.70-6.10); White Blood Cell (WBC) Count 4.87 10x3/uL (4.8-10.8)
[2025-03-06 06:33] LABS: Platelet Adequacy Comment Platelets Normal; RBC Morphology Within Normal Limits; Smudge Cells 17.0 %
[2025-03-06] MEDS: Furosemide 20 MG TAB PO SCH (16:09)
[2025-03-06] MEDS: Losartan 25 MG TAB PO SCH (16:10)
[2025-03-07 05:13] LABS: ALT (SGPT) 10 U/L (Less than 45); AST (SGOT) 18 U/L (11-34); Albumin 3.0 g/dL (3.1-4.5); Alkaline Phosphatase 111 U/L (40-110); Anion Gap 7 mmol/L (10-20); BUN (Urea Nitrogen) 14 mg/dL (8.4-25.7); Bilirubin, Total 0.5 mg/dL (0.3-1.2); Calc. Creatinine Clearance 96 mL/min (70-130); Calcium 8.2 mg/dL (7.8-10.44); Carbon Dioxide 27 mmol/L (23-31); Chloride 106 mmol/L (98-107); Globulin 2.0 g/dL (2.4-3.5); Glucose 93 mg/dL (83-110); Magnesium 1.7 mg/dL (1.6-2.6); Potassium 4.1 mmol/L (3.5-5.1); Sodium 136 mmol/L (136-145)
[2025-03-07 05:40] LABS: Hematocrit 33.0 % (42.0-52.0); Hemoglobin 10.4 g/dL (14.0-18.0); Mean Corpuscular Hemoglobin 29.4 pg (27.0-31.0); Mean Corpuscular Volume 93.2 fL (78.0-98.0); Platelet Count 124 10x3/uL (130-400); Red Blood Cell (RBC) Count 3.54 mill/uL (4.70-6.10); White Blood Cell (WBC) Count 5.04 10x3/uL (4.8-10.8)
[2025-03-07 07:21] LABS: Macrocytosis SLIGHT = 6-15 cells HPF (0-5); Platelet Adequacy Comment Platelets Decreased; Polychromasia SLIGHT = 2-3 cells HPF (0-2); Smudge Cells 15.8 %
[2025-03-07] MEDS: Losartan 25 MG TAB PO SCH (09:45)
[2025-03-07] MEDS: Furosemide 20 MG TAB PO SCH (09:46)
[2025-03-07 12:25] VITALS: BP 120/78; TEMP 97.6
== END 2025-03-07 12:30 | disposition home or self-care (01) | DRG 335 ==
LOC: ERS 23:58 → MSONC 03-01 03:50
PROVIDERS: ADMIT Family Medicine; ATTEND Internal Medicine
PROC: 3E03329 Introduction of Other Anti-infective into Peripheral Vein, Percutaneous Approach (ICD-10-PCS; 2025-03-01)
PROC: 0D9670Z Drainage of Stomach with Drainage Device, Via Natural or Artificial Opening (ICD-10-PCS; 2025-03-01)
PROC: 0DNW4ZZ Release Peritoneum, Percutaneous Endoscopic Approach (ICD-10-PCS; principal; 2025-03-03)
DX: K56.50 Intestinal adhesions [bands], unspecified as to partial versus complete obstruction (principal); J18.9 Pneumonia, unspecified organism; J96.01 Acute respiratory failure with hypoxia; N13.30 Unspecified hydronephrosis; J44.0 Chronic obstructive pulmonary disease with (acute) lower respiratory infection; I25.10 Atherosclerotic heart disease of native coronary artery without angina pectoris; R16.1 Splenomegaly, not elsewhere classified; I71.40 Abdominal aortic aneurysm, without rupture, unspecified; J44.9 Chronic obstructive pulmonary disease, unspecified; K46.9 Unspecified abdominal hernia without obstruction or gangrene; D64.9 Anemia, unspecified; Z85.6 Personal history of leukemia; Z88.8 Allergy status to other drugs, medicaments and biological substances; Z88.5 Allergy status to narcotic agent; Z98.890 Other specified postprocedural states; Z79.899 Other long term (current) drug therapy; Z95.0 Presence of cardiac pacemaker; S46.011D Strain of muscle(s) and tendon(s) of the rotator cuff of right shoulder, subsequent encounter
CPT/HCPCS: 36415; 36416; 71045; 71275; 74018; 74177; 74250; 80048; 80053; 83605; 83690; 83735; 83880; 84100; 84484; 85025; 85610; 85730; 93005; 94640; 94664; 96374; 96375; 96376; A6258; J0456; J0690; J0696; J1100; J1650; J1885; J2405; J2550; J2704; J3010; J7030; J7050; J7620; Q0162; Q9963; Q9967

== ENCOUNTER 2025-07-03 22:47 | Emergency (ER) | payer MEDICARE ==
[~2025-07-03 22:47] MED LIST changes: -Iopamidol 370 76% 100 ML VIAL ONE; +Iopamidol-370 76% 500 ML MDV (1 ML CHARGE) ONE
[2025-07-03] MEDS ORDERED: Ondansetron PF 4 MG/2 ML Vial ONE (23:21)
[2025-07-03 23:29] LABS: ALT (SGPT) 21 U/L (Less than 45); AST (SGOT) 21 U/L (11-34); Albumin 4.5 g/dL (3.1-4.5); Alkaline Phosphatase 135 U/L (40-110); Anion Gap 16 mmol/L (10-20); BUN (Urea Nitrogen) 30 mg/dL (8.4-25.7); Bilirubin, Total 0.8 mg/dL (0.3-1.2); Calc. Creatinine Clearance 0 mL/min (70-130); Calcium 9.3 mg/dL (7.8-10.44); Carbon Dioxide 22 mmol/L (23-31); Chloride 102 mmol/L (98-107); Globulin 2.2 g/dL (2.4-3.5); Glucose 128 mg/dL (83-110); Lipase 21 U/L (8-78); Potassium 4.6 mmol/L (3.5-5.1); Sodium 135 mmol/L (136-145)
[2025-07-03 23:36] LABS: Hematocrit 42.2 % (42.0-52.0); Hemoglobin 14.4 g/dL (14.0-18.0); Mean Corpuscular Hemoglobin 29.3 pg (27.0-31.0); Mean Corpuscular Volume 85.9 fL (78.0-98.0); Platelet Count 127 10x3/uL (130-400); Red Blood Cell (RBC) Count 4.91 mill/uL (4.70-6.10); White Blood Cell (WBC) Count 13.41 10x3/uL (4.8-10.8)
[2025-07-03 23:56] LABS: Macrocytosis SLIGHT = 6-15 cells HPF (0-5); Platelet Adequacy Comment Platelets Normal
[2025-07-04] MEDS ORDERED: Ondansetron PF 4 MG/2 ML Vial ONE (00:34)
[2025-07-04 03:34] LABS: Bacteria/HPF None Seen HPF (None Seen); CAUTI Indications for Culture Pelvic or flank pain; Glucose, Urine (Dipstick) Normal (Negative); Leukocyte Negative Leu/uL (Negative); Protein, Urine (Dipstick) 10 mg/dL (Neg-Trace); WBC/HPF 0-3 HPF (0-3)
[2025-07-04 03:37] LABS: Specific Gravity, Urine Greater than 1.050 (1.002-1.036)
[2025-07-04 03:38] LABS: Urine Culture Reflex No No
== END 2025-07-04 04:26 | disposition home or self-care (01) ==
LOC: ERS 22:47
DX: N13.30 Unspecified hydronephrosis (principal); R11.2 Nausea with vomiting, unspecified; I25.10 Atherosclerotic heart disease of native coronary artery without angina pectoris; J44.9 Chronic obstructive pulmonary disease, unspecified; Z95.0 Presence of cardiac pacemaker; Z95.5 Presence of coronary angioplasty implant and graft; Z79.899 Other long term (current) drug therapy; Z79.51 Long term (current) use of inhaled steroids
CPT/HCPCS: 74177; 80053; 81001; 83690; 84484; 85025; 93005; 96361; 96365; 96375; 96376; 99284; J2405 ×2; J2550; J3010; Q9967